=== PATIENT | female | born 1935 | race Two or more races ===

== ENCOUNTER → 2020-05-06 13:56 | Outpatient (BNVA) | payer MEDICARE, MEDICAID, SELFPAY | PROVIDERS: PCP Internal Medicine; Referring Provider Internal Medicine; Visit Provider Internal Medicine | DX: E11.65 Type 2 diabetes mellitus with hyperglycemia (principal); E78.5 Hyperlipidemia, unspecified; E05.90 Thyrotoxicosis, unspecified without thyrotoxic crisis or storm; I10 Essential (primary) hypertension; R74.01 Elevation of levels of liver transaminase levels | CPT/HCPCS: 82947; Q3014 ==

== ENCOUNTER → 2020-06-06 10:07 | Outpatient (BNVA) | payer MEDICARE, MEDICAID, SELFPAY | PROVIDERS: PCP Internal Medicine; Referring Provider Internal Medicine; Visit Provider Physician Assistant | DX: Z13.89 Encounter for screening for other disorder (principal) | CPT/HCPCS: Q3014 ==

== ENCOUNTER 2020-07-02 10:32 | Outpatient (REF) | payer MEDICARE, MEDICAID, SELFPAY ==
[2020-07-02 12:39] LABS: Alanine Aminotransferase 67 U/L (0-31); Alkaline Phosphatase 115 U/L (39-117); Anion Gap 15 (12-20); Aspartate Amino Transferase 56 U/L (5-31); Bilirubin Total 0.6 mg/dL (0.0-1.0); Blood Urea Nitrogen 13 mg/dL (9-16); Calcium 9.4 mg/dL (8.4-10.2); Carbon Dioxide 26 mmol/L (22-29); Chloride 102 mmol/L (96-108); Estimated Glomerular Filt Rate > 60; Glucose Random 318 mg/dL (60-115); Potassium 4.3 mmol/l (3.3-5.1); Sodium 139 mmol/L (135-145); Total Protein 7.7 g/dL (6.5-8.0)
[2020-07-03 09:11] LABS: HBc Num1 0.11 S/CO (0.00-0.79); HBsAGNum1 0.16 S/CO (0.00-0.99); Hepatitis B Core Antibody Nonreactive (Nonreactive); Hepatitis B Surface Antigen Negative (Negative); ~HepC Num1 0.16 S/CO (0.00-0.79); ~Hepatitis C Antibody Nonreactive (Nonreactive)
[2020-07-03 09:27] LABS: ~Hepatitis B Surface Antibody NONREACTIVE (Nonreactive)
[2020-07-03 11:09] LABS: HBS Num1 0.35 mIU/mL (0-7.99); Hepatitis A Antibody IgM 0.09 Index (0-0.79); ~Hepatitis A Antibody IgM Nonreactive (Nonreactive)
[2020-07-03 13:32] LABS: Anti Nuclear Antibody Screen NEGATIVE (NEGATIVE)
[2020-07-04 15:12] LABS: Mitochondrial Antibodies NEGATIVE (NEGATIVE)
[2020-07-06 12:36] LABS: Smooth Muscle Antibody <20 U (<20)
== END 2020-07-02 10:33 | disposition home or self-care (01) ==
LOC: HO.LAB 10:32
PROVIDERS: PCP Internal Medicine; Visit Provider Physician Assistant
DX: R74.01 Elevation of levels of liver transaminase levels (principal); R10.11 Right upper quadrant pain; R74.8 Abnormal levels of other serum enzymes
CPT/HCPCS: 36415; 80053; 86038; 86039; 86255; 86256; 86704; 86706; 86709; 86803; 87340

== ENCOUNTER → 2020-08-28 14:09 | Outpatient (BNVA) | payer MEDICARE, MEDICAID, SELFPAY | PROVIDERS: PCP Internal Medicine; Visit Provider Internal Medicine | DX: E11.65 Type 2 diabetes mellitus with hyperglycemia (principal); Z79.4 Long term (current) use of insulin; E78.5 Hyperlipidemia, unspecified; E05.90 Thyrotoxicosis, unspecified without thyrotoxic crisis or storm; I10 Essential (primary) hypertension | CPT/HCPCS: 82947; 99212 ==

== ENCOUNTER 2020-11-27 14:00 | Outpatient (REF) | payer MEDICARE, OTHER, SELFPAY ==
[2020-11-27 15:19] LABS: Estimated Average Glucose 246 mg/dL; Hemoglobin A1c % 10.2 %
[2020-11-27 15:43] LABS: Alkaline Phosphatase 111 U/L (39-117); Aspartate Amino Transferase 26 U/L (5-31); Blood Urea Nitrogen 16 mg/dL (9-16); Cholesterol 118 mg/dL; Estimated Glomerular Filt Rate > 60; HDL Cholesterol 39 mg/dL
[2020-11-27 16:03] LABS: Free T4 (Free Thyroxine) 0.93 ng/dL (0.71-1.85); Thyroid Stimulating Hormone 0.36 uIU/mL (0.32-4.0)
[2020-11-27 16:13] LABS: Albumin Level 3.7 g/dL (3.5-5.0); Anion Gap 15 (12-20); Bilirubin Total 0.7 mg/dL (0.0-1.0); Calcium 9.3 mg/dL (8.4-10.2); Carbon Dioxide 24 mmol/L (22-29); Chloride 105 mmol/L (96-108); Glucose Random 326 mg/dL (60-115); LDL Cholesterol Calculated 51 mg/dl; Potassium 4.7 mmol/L (3.3-5.1); Sodium 139 mmol/L (135-145); Total Protein 7.3 g/dL (6.5-8.0); Triglycerides 143 mg/dL
[2020-11-27 16:27] LABS: Alanine Aminotransferase 27 U/L (0-31)
[2020-11-28 07:52] LABS: LDL Cholesterol Direct 50 mg/dL (<100)
== END 2020-11-27 14:01 | disposition home or self-care (01) ==
LOC: HO.LAB 14:00
PROVIDERS: PCP Internal Medicine; Visit Provider Internal Medicine
DX: E11.65 Type 2 diabetes mellitus with hyperglycemia (principal); E78.5 Hyperlipidemia, unspecified; E05.90 Thyrotoxicosis, unspecified without thyrotoxic crisis or storm; I10 Essential (primary) hypertension; Z79.4 Long term (current) use of insulin
CPT/HCPCS: 36415; 80053; 80061; 82947; 83036; 83721; 84439; 84443; 99212

== ENCOUNTER → 2021-03-06 13:00 | Outpatient (BNVA) | payer MEDICARE, MEDICAID, SELFPAY | PROVIDERS: PCP Internal Medicine; Visit Provider Nurse Practitioner Gerontology | DX: E11.65 Type 2 diabetes mellitus with hyperglycemia (principal); E78.5 Hyperlipidemia, unspecified; I10 Essential (primary) hypertension; Z79.4 Long term (current) use of insulin | CPT/HCPCS: 82947; 83036; 99212 ==

== ENCOUNTER → 2021-03-21 12:33 | Outpatient (BNVA) | payer MEDICARE, MEDICAID, SELFPAY | PROVIDERS: PCP Internal Medicine; Visit Provider Nurse Practitioner Gerontology | DX: Z13.89 Encounter for screening for other disorder (principal) | CPT/HCPCS: Q3014 ==

== ENCOUNTER 2021-05-08 13:08 | Inpatient (IN) | payer MEDICARE, OTHER, SELFPAY ==
--- NOTE | ~2021-05-08 | XR_ITS ---
EXAMINATION: XR CHEST CLINICAL INFORMATION: Leukocytosis. Question infection COMPARISON: Chest 05/08/2021 TECHNIQUE: Frontal view of the chest was obtained. FINDINGS: The lungs are hypo-expanded with increased pulmonary vascularity likely mild congestion or pneumonitis. There is no consolidation. Heart size and pulmonary vascularity is normal. No gross bony abnormality. XR/XR chest 1V IMPRESSION: Bilateral increased parahilar vascular markings question mild congestion. No consolidation seen.
--- NOTE | ~2021-05-08 | CT_ITS ---
EXAMINATION: CT BRAIN AND CT CERVICAL SPINE WITHOUT CONTRAST. CHEST, LEFT KNEE AND LEFT HIP. CLINICAL INFORMATION: Fall with head injury. COMPARISON: None TECHNIQUE: 5 minutes thin axial and 3 reformatted 2 mm thin sagittal and coronal images of brain were obtained. Subsequently axial 3 mm thin and reformatted 2 mm thin sagittal coronal images of cervical spine were obtained. DLP [id number]. Chest one view. Left knee 3 views. AP pelvis and left hip 3 views. FINDINGS: BRAIN: There is no acute intra-axial, extra-axial bleed, masses or midline shift. There is no acute infarction evolution. The lateral ventricles are symmetrical in size and configuration without enlargement. The jay to white matter differentiation is maintained normal. There is dystrophic calcification of bilateral basal ganglia and atherosclerotic calcification of carotid arteries. Bone windows reveal no calvarial abnormality. There is no scalp soft tissue abnormality. Bilateral paranasal sinuses and mastoid air cells are well-aerated. CERVICAL SPINE: There is exaggerated cervical lordosis. The vertebral heights and alignment is normal. There is loss of C6-C7 disc height with moderate ventral and posterior spondylosis. The craniovertebral junction and the C1-C2 alignment is normal. There is mild right C3-C4 and C4-C5 facet joint arthropathy. The prevertebral and paravertebral soft tissues are normal. The lung apices are clear. CHEST: The lungs are well-expanded and clear of acute process. The heart size and pulmonary vascularity is normal. There is a calcified 3 mm granuloma right midlung. There is mild S-shaped scoliosis of thoracolumbar spine with dextroscoliosis. LEFT KNEE: There is diffuse osteopenia without any acute fracture or dislocation seen. There is no abnormal joint effusion. AP PELVIS AND LEFT HIP: There is fracture left femoral neck with mild medial angulation. There is no dislocation. Rest of the pelvis and right hip joint is normal. CT/CT cervical spine wo con IMPRESSION: No acute intracranial process seen. There is no acute fracture or dislocation cervical spine. There are degenerative disc changes and ventral and posterior spondylosis C6-C7 disc level. Left femoral neck fracture with medial angulation but no dislocation. The right hip joint is unremarkable. Diffuse osteopenia left knee without fracture or dislocation. Unremarkable chest exam except for smooth S-shaped scoliosis.
[2021-05-08 13:26] VITALS: BP 189/103; BP 190/120; PULSE 90; PULSE 91; RESP 17; TEMP 36.6; O2SAT 95; O2SAT 99; BMI 29.2
--- NOTE | 2021-05-08 13:42 | ED.FALL ---
HPI - Fall General Chief Complaint: Fall Stated Complaint: FALL,L EYE/HIP/KNEE PAIN Time Seen by Provider: 05/08/21 13:38 Source: patient, family, EMS and screen vent binder Mode of arrival: EMS Limitations: no limitations History of Present Illness HPI Narrative: 85-year-old female with history of mild dementia came in for evaluation of mechanical fall. Daughter in law was in the room with the patient and left the room for short time, patient tried to get out of the bed to the commode without using her cane that she usually use, patient was found on the floor, fully conscious complaining of left-sided knee pain, patient also had her head having small laceration in left eyebrow area. Unknown LOC but not likely because daughter in law responded immediately and patient was awake. Related Data Home Medications Medication Instructions Recorded Confirmed aspirin 81 mg tablet,delayed 81 mg PO DAILY 06/14/20 05/08/21 release (Adult Aspirin Regimen) metoprolol succinate 50 mg 50 mg PO DAILY 06/14/20 05/08/21 tablet,extended release 24 hr blood sugar diagnostic (FreeStyle 03/06/21 03/21/21 Lite Strips) blood-glucose meter (FreeStyle 03/06/21 03/21/21 Lite Meter) Previous Rx's Medication Instructions Recorded miscellaneous medical supply #1 ea 03/22/20 dulaglutide 1.5 mg/0.5 mL 1.5 mg (0.5 mL) SUBCUT QWEEK 30 05/06/20 subcutaneous pen injector Days #2 ml (Trulicity) amitriptyline 25 mg tablet 25 mg PO DAILY #90 tab 10/07/20 gabapentin 800 mg tablet 800 mg PO BID 90 Days #180 tab 10/07/20 atorvastatin 80 mg tablet 80 mg PO DAILY #90 tab 12/05/20 omeprazole 20 mg capsule,delayed 20 mg PO DAILY #90 cap 02/04/21 release insulin glargine 100 unit/mL (3 14 unit (0.14 mL) SUBCUT DAILY 30 03/21/21 mL) subcutaneous pen Days #15 ml cholecalciferol (vitamin D3) 50 50 mcg PO DAILY #30 cap 03/25/21 mcg (2,000 unit) capsule (Vitamin D3) Allergies Allergy/AdvReac Type Severity Reaction Status Date / Time No Known Allergies Allergy Verified 12/02/21 13:26 [No Known Allergies*] Review of Systems Review of Systems: All other systems are reviewed and are negative Constitutional: Reports as per HPI and Reports no additional constitutional complaints Eyes: Reports as per HPI and Reports no additional eye complaints Reports system reviewed and no additional complaints, except as documented Cardiovascular: Reports as per HPI and Reports no additional cardiovascular complaints Respiratory: Reports as per HPI and Reports no additional respiratory complaints Gastrointestinal: Reports as per HPI and Reports no additional gastrointestinal complaints Genitourinary: Reports no additional female genitourinary complaints Musculoskeletal: Reports no additional musculoskeletal complaints Skin/Breast: Reports system reviewed and no additional complaints, except as docu Psychiatric: Reports no additional psychiatric complaints Endocrine: Reports no additional endocrine complaints Hematologic/Lymphatic: Reports no additional hematologic/lymphatic complaints Allergic/Immunologic: Reports no additional allergic/immunologic complaints Reports system reviewed and no additional complaints, except as documented and Reports Abnormal speech present [facility] Past Medical History Medical History Dementia Gait instability GERD (gastroesophageal reflux disease) History of paroxysmal supraventricular tachycardia HTN (hypertension) Hypercholesterolemia Migraine Peripheral vascular disease Subclinical hyperthyroidism Transaminitis Type 2 diabetes mellitus with hyperglycemia Vitamin D deficiency Surgical History History of cholecystectomy Hx of colonoscopy Family History Family History Father No problems noted. Mother No problems noted. Social History Social History Household Members Other:: lives with adult children Housing: Apartment Alcohol intake: never Patient Tobacco Use Status: Never used Tobacco e-Cigarette/Vaping Use: Never Used Second Hand Smoke Exposure: No Use of substances other than those prescribed or required for medical reasons: No Advance Directives: No Advance Directives Information Provided: No Current occupational status: disabled Physical Exam Vital Signs: Vital Signs: Last Vital Signs Temp 97.9 F 05/08/21 13:26 Pulse 91 05/08/21 13:26 Resp 17 05/08/21 13:26 BP 189/103 H 05/08/21 13:26 Pulse Ox 95 05/08/21 13:26 BMI result Body Mass Index 29.2 Vital signs have been reviewed as appeared to be correct. Blood pressure elevated. Heart rate normal. Respiration rate normal. Temperature normal. Oxygen saturation normal. Appearance: Alert. Oriented X3. No acute distress. Head: Normal external exam. Normocephalic. Atraumatic. No Skelton signs noted. No raccoon eyes noted Eyes: PERRLA. EOMI. Conjunctiva and sclera normal. Eyelids normal. 1 cm laceration over the left eyebrow. ENT: TM's Normal. Pharynx normal. Uvula midline. Moist mucous membranes. No trismus noted. No drooling noted. No muffled voice noted. Neck: Normal inspection. Neck supple. FROM. No adenopathy. Thyroid Normal. No meningeal signs. No neck mass noted. CVS: Normal heart rate and rhythm. Heart sound normal. No murmurs noted. Pulses normal throughout. Respiratory: No respiratory distress. Painless inspiration. Breath sounds normal. No wheezes/rales/rhonchi noted. Chest nontender. No accessory muscle usage noted or decreased air movement noted. Abdomen: Soft and nontender. Bowel sounds normal in all 4 quadrants. No distention noted. No organomegaly noted. No visible injury noted. Back: No CVA tenderness. Full range of motion noted. Skin: Skin warm and dry. Normal skin color. Normal skin turgor. No rashes/lesions/lacerations noted. Extremities: Left knee pain and tenderness, no step-off, deformity. Left hip deformity, with tenderness with shortness of the left lower extremities. Neuro: Oriented X 3. Cranial nerve exam: II-XII are grossly intact No motor deficit. No sensory deficit. Reflexes normal. Course Course Course Narrative: Assessment and plan. 85-year-old female brought in by her family after had a mechanical fall and sustained left femoral neck fracture, case discussed with Dr. Arroyo and patient be admitted to Medicine. Procedures Laceration Laceration 1: Site: scalp (Left eyebrow) Side (If applicable): left Size (cm): 1 Description: linear Pre-repair: irrigated extensively Skin layer closed with: other (Dermabond) MDM - Fall Medical Records Attestation: I reviewed the patient's medical records. Lab Data Attestation: I reviewed the patient's lab results. Result diagrams: 05/08/21 15:11 05/08/21 15:11 Labs: Lab Results 1205/08/21 05/08/21 Range/Units 13:58 15:11 15:11 WBC 14.5 H (4.8-10.8) X10*3/uL RBC 4.28 (4.20-5.50) X10*6/uL Hgb 13.4 (12.0-16.0) g/dl Hct 40.6 (37.0-47.0) % MCV 94.9 (80.0-98.0) fL MCH 31.3 (27.0-33.0) pg MCHC 33.0 (31.0-35.0) g/dl RDW 13.3 (11.0-16.0) % Plt Count 170 (160-400) X10*3/uL MPV 11.3 (9.4-12.3) fL Immature Gran % (Auto) 0.3 (0.0-0.4) % Neut % (Auto) 73.5 H (45-73) % Lymph % (Auto) 22.0 (20-40) % [place] % (Auto) 3.4 (2-11) % Eos % (Auto) 0.6 (0-4) % Baso % (Auto) 0.2 (0-2) % Lymph # (Auto) 3.2 (1.2-4.9) X10*3/uL [place] # (Auto) 0.5 (0.1-1.2) X10*3/uL Eos # (Auto) 0.1 (0.0-0.4) X10*3/uL Baso # (Auto) 0.0 (0.0-0.2) X10*3/uL Abs Immat Gran (auto) 0.05 H (0.00-0.03) X10*3/uL Absolute Neuts (auto) 10.7 H (2.0-8.3) x10*3/uL Absolute Nucleated RBC 0.000 (0.0-0.012) X10*3/uL Nucleated RBC % (auto) 0.0 (0.0-0.2) /100WBC Sodium 141 (135-145) mmol/L Potassium 3.8 (3.3-5.1) mmol/L Chloride 104 (96-108) mmol/L Carbon Dioxide 26 (22-29) mmol/L Anion Gap 15 (12-20) BUN 11 (9-16) mg/dL Creatinine 0.73 (0.5-1.4) mg/dL Estim Creat Clear Calc 53.5 Estimated GFR > 60 POC Glucose 211 H (60-115) mg/dL Random Glucose 297 H (60-115) mg/dL Calcium 9.2 (8.4-10.2) mg/dL Total Bilirubin 0.7 (0.0-1.0) mg/dL Direct Bilirubin 0.3 (0.0-0.5) mg/dL AST 33 H (5-31) U/L ALT 48 H (0-31) U/L Alkaline Phosphatase 114 (39-117) U/L Troponin I High Sens (<3.5-17.0) ng/L Total Protein 7.5 (6.5-8.0) g/dL Albumin 3.9 (3.5-5.0) g/dL Lipase 10 (8-78) U/L Urine Color Urine Appearance Urine pH (5.0-8.0) Ur Specific [place] (1.005-1.025) Urine Protein (NEG-TRACE) MG/DL Urine Glucose (UA) (NEG) MG/DL Urine Ketones (NEG) MG/DL Urine Blood (NEG) Urine Nitrite (NEG) Ur Leukocyte Esterase (NEG) Urine RBC (0) /HPF Urine WBC (0-4) /HPF Ur Squamous Epith Cells /LPF Urine Bacteria /LPF 05/08/21 05/08/21 Range/Units 15:11 15:58 WBC (4.8-10.8) X10*3/uL RBC (4.20-5.50) X10*6/uL Hgb (12.0-16.0) g/dl Hct (37.0-47.0) % MCV (80.0-98.0) fL MCH (27.0-33.0) pg MCHC (31.0-35.0) g/dl RDW (11.0-16.0) % Plt Count (160-400) X10*3/uL MPV (9.4-12.3) fL Immature Gran % (Auto) (0.0-0.4) % Neut % (Auto) (45-73) % Lymph % (Auto) (20-40) % [place] % (Auto) (2-11) % Eos % (Auto) (0-4) % Baso % (Auto) (0-2) % Lymph # (Auto) (1.2-4.9) X10*3/uL [place] # (Auto) (0.1-1.2) X10*3/uL Eos # (Auto) (0.0-0.4) X10*3/uL Baso # (Auto) (0.0-0.2) X10*3/uL Abs Immat Gran (auto) (0.00-0.03) X10*3/uL Absolute Neuts (auto) (2.0-8.3) x10*3/uL Absolute Nucleated RBC (0.0-0.012) X10*3/uL Nucleated RBC % (auto) (0.0-0.2) /100WBC Sodium (135-145) mmol/L Potassium (3.3-5.1) mmol/L Chloride (96-108) mmol/L Carbon Dioxide (22-29) mmol/L Anion Gap (12-20) BUN (9-16) mg/dL Creatinine (0.5-1.4) mg/dL Estim Creat Clear Calc Estimated GFR POC Glucose (60-115) mg/dL Random Glucose (60-115) mg/dL Calcium (8.4-10.2) mg/dL Total Bilirubin (0.0-1.0) mg/dL Direct Bilirubin (0.0-0.5) mg/dL AST (5-31) U/L ALT (0-31) U/L Alkaline Phosphatase (39-117) U/L Troponin I High Sens < 3.5 (<3.5-17.0) ng/L Total Protein (6.5-8.0) g/dL Albumin (3.5-5.0) g/dL Lipase (8-78) U/L Urine Color YELLOW Urine Appearance CLEAR Urine pH 7.0 (5.0-8.0) Ur Specific [place] 1.020 (1.005-1.025) Urine Protein NEG (NEG-TRACE) MG/DL Urine Glucose (UA) >=1000 H (NEG) MG/DL Urine Ketones 15 (NEG) MG/DL Urine Blood TRACE (NEG) Urine Nitrite NEG (NEG) Ur Leukocyte Esterase NEG (NEG) Urine RBC 1-4 (0) /HPF Urine WBC 0 (0-4) /HPF Ur Squamous Epith Cells 1+ /LPF Urine Bacteria 1+ /LPF Imaging Data Chest x-ray: Attestation: I personally reviewed and interpreted this imaging study as follows: Radiologist's impression: Unremarkable chest x-ray examination. Left hip x-ray: Radiologist's impression: Left femoral neck fracture. Head/cervical spine CT: Radiologist's impression: No acute intracranial process seen. ? There is no acute fracture or dislocation cervical spine. There are degenerative disc changes and ventral and posterior spondylosis C6-C7 disc level. Left knee x-ray: Radiologist's impression: Diffuse osteopenia left knee without fracture dislocation. ECG Data Attestation: I personally reviewed and interpreted this ECG as follows: Interpretation: Sinus tachycardia at 112 beats per minutes, normal intervals, no ST-T changes. Discharge Plan Discharge Clinical Impression: Fall, Closed fracture of left hip Patient Disposition: Admitted As Inpatient
[2021-05-08 14:03] LABS: Glucose, Whole Blood 211 mg/dL (60-115)
[2021-05-08] MEDS: 0.9 % Sodium Chloride 1,000 ML 999 ML IVCONT (14:07)
[2021-05-08 14:10] VITALS: BP 167/84; PULSE 93
[2021-05-08] MEDS: oxyCODONE HCl Immed Release 5 MG TABLET PO (15:03)
[2021-05-08 15:15] LABS: MANUAL DIFF FLAG NO
[2021-05-08 15:17] LABS: Basophils Percent Auto 0.2 % (0-2); Eosinophils Absolute Auto 0.1 X10*3/uL (0.0-0.4); Eosinophils Percent Auto 0.6 % (0-4); Hematocrit 40.6 % (37.0-47.0); Hemoglobin 13.4 g/dl (12.0-16.0); Imm Gran Abs Auto 0.05 X10*3/uL (0.00-0.03); Imm Gran Pct Auto 0.3 % (0.0-0.4); Lymphocytes Absolute Auto 3.2 X10*3/uL (1.2-4.9); Mean Corpuscular Hemoglobin 31.3 pg (27.0-33.0); Mean Corpuscular Volume 94.9 fL (80.0-98.0); Mean Platelet Volume 11.3 fL (9.4-12.3); Monocytes Absolute Auto 0.5 X10*3/uL (0.1-1.2); Monocytes Percent Auto 3.4 % (2-11); Neutrophils Absolute Auto 10.7 x10*3/uL (2.0-8.3); Neutrophils Percent Auto 73.5 % (45-73); Platelet Count 170 X10*3/uL (160-400); Red Blood Count 4.28 X10*6/uL (4.20-5.50); Red Cell Distribution Width 13.3 % (11.0-16.0); White Blood Count 14.5 X10*3/uL (4.8-10.8)
[2021-05-08 15:32] LABS: Alanine Aminotransferase 48 U/L (0-31); Albumin Level 3.9 g/dL (3.5-5.0); Alkaline Phosphatase 114 U/L (39-117); Anion Gap 15 (12-20); Aspartate Amino Transferase 33 U/L (5-31); Bilirubin Direct 0.3 mg/dL (0.0-0.5); Bilirubin Total 0.7 mg/dL (0.0-1.0); Blood Urea Nitrogen 11 mg/dL (9-16); Calcium 9.2 mg/dL (8.4-10.2); Carbon Dioxide 26 mmol/L (22-29); Chloride 104 mmol/L (96-108); Creatinine Clr Calc Pharmacy 53.5; Estimated Glomerular Filt Rate > 60; Glucose Random 297 mg/dL (60-115); Lipase 10 U/L (8-78); Potassium 3.8 mmol/L (3.3-5.1); Sodium 141 mmol/L (135-145); Total Protein 7.5 g/dL (6.5-8.0)
[2021-05-08 15:38] LABS: Troponin-I High Sensitivity < 3.5 ng/L (<3.5-17.0)
--- NOTE | 2021-05-08 15:38 | PC.NURSE ---
pt returned from scanning, ivf continue to run slowely, will continue to monitor.
--- NOTE | 2021-05-08 15:48 | ECG_ITS ---
Test Reason : PRE-OP Blood Pressure : / mmHG Vent. Rate : 112 BPM Atrial Rate : 112 BPM P-R Int : 166 ms QRS Dur : 070 ms QT Int : 312 ms P-R-T Axes : 050 -38 050 degrees QTc Int : 425 ms Sinus tachycardia Left axis deviation Cannot exclude old Inferior infarct (cited on or before 27-SEP-2018) Abnormal ECG When compared with ECG of 27-SEP-2018 19:30, No significant change was found Referred By: Christie Frances Electronically Signed By:ADRIEL AGUILAR
--- NOTE | 2021-05-08 16:01 | PC.NURSE ---
burgess cath inserted per order, ekg being performed per order
--- NOTE | 2021-05-08 16:02 | PHA.MEDREC ---
Pharmacy Consult ? Medication Reconciliation Pharmacy has completed the medication reconciliation. Patient is not a good historian. Out patient pharmacy fill history is consistent.
[2021-05-08 16:06] LABS: Appearance Urine CLEAR; Color Urine YELLOW; Glucose Urine UA >=1000 MG/DL (NEG); Leukocyte Esterase Urine NEG (NEG); Nitrite Urine NEG (NEG); UACC Culture Trigger NO; Urine Blood TRACE (NEG); Urine Ketones 15 MG/DL (NEG); Urine Protein NEG (NEG-TRACE)
[2021-05-08 16:14] LABS: Bacteria Urine 1+ /LPF; Squamous Epithelial Cell Urine 1+ /LPF; WBC Urine 0 /HPF (0-4)
[2021-05-08 16:47] LABS: Influenza A PCR NEGATIVE (Negative); Influenza B PCR NEGATIVE (Negative); Resp Syncy Virus RNA Qual PCR NEGATIVE (Negative); SARS COV2 PCR INHOUSE NEGATIVE (Negative)
--- NOTE | 2021-05-08 16:47 | PM.IMHP ---
History of Present Illness Date of Service: 05/08/21 Attending physician on admission: Juan Alberto Willoughby Chief Complaint: fall, left hip pain, left knee pain This is an 85-year-old female who was brought to the emergency department after a fall. Patient has a history of dementia and history was obtained from family over the phone as well as through the use of a director electronics. The patient states that she was walking to the commode when she fell. She is unsure if she was using her cane at the time. She denies any dizziness, shortness of breath or chest pain. In the emergency room she had multiple imaging studies which revealed a left femoral neck fracture. Lab work showed leukocytosis with white count of 14.5 and was otherwise unremarkable. The orthopedic team evaluated the patient and felt she should be admitted under the medical service. Review of Systems Review of Systems: Yes all other systems are reviewed and are negative Constitutional: Constitutional: Denies chills and Denies fever(s) Cardiovascular: Cardiovascular: Denies chest pain Respiratory: Respiratory: Denies cough Gastrointestinal: Gastrointestinal: Denies abdominal pain [facility]LY [facility], [facility] Medical History Dementia Gait instability GERD (gastroesophageal reflux disease) History of paroxysmal supraventricular tachycardia HTN (hypertension) Hypercholesterolemia Migraine Peripheral vascular disease Subclinical hyperthyroidism Transaminitis Type 2 diabetes mellitus with hyperglycemia Vitamin D deficiency Functional capacity: uses cane/walker Family History Father No problems noted. Mother No problems noted. Surgical History History of cholecystectomy Hx of colonoscopy Social History Household Members Other:: lives with adult children Housing: Apartment Alcohol intake: never Patient Tobacco Use Status: Never used Tobacco e-Cigarette/Vaping Use: Never Used Second Hand Smoke Exposure: No Use of substances other than those prescribed or required for medical reasons: No Advance Directives: No Advance Directives Information Provided: No Current occupational status: disabled Meds Allergies Allergy/AdvReac Type Severity Reaction Status Date / Time No Known Allergies Allergy Verified 05/08/21 13:26 [No Known Allergies*] Active Medications: Current Medications Acetaminophen (Acetaminophen 325 Mg Tablet) 650 mg PO Q6H PRN PRN Reason: Pain, Mild (Pain Scale 1-3) Amitriptyline HCl (Amitriptyline Hcl 25 Mg Tablet) 25 mg PO DAILY [facility] Atorvastatin Calcium (Atorvastatin Calcium 80 Mg Tablet) 80 mg PO DAILY [facility] Docusate Sodium (Docusate Sodium 100 Mg Capsule) 100 mg PO DAILY PRN PRN Reason: Constipation Gabapentin (Gabapentin 400 Mg Capsule) 800 mg PO BID [facility] Cefazolin Sodium/Dextrose (Ancef) 2 gm in 50 mls @ 100 mls/hr IV PREOP ONE Stop: 05/09/21 13:29 Insulin Glargine (Insulin Glargine,Hum.Rec.Anlog 100 Unit/Ml 10 Ml Vial) 14 unit SUBCUT DAILY [facility] Metoprolol Succinate (Metoprolol Succinate Er 50 Mg Tab.Er.24h) 50 mg PO DAILY [facility]; Protocol Morphine Sulfate (Morphine Sulfate 4 Mg/Ml Cartridge) 2 mg IVPUSH Q4H PRN; Protocol PRN Reason: Pain, Severe (Pain Scale 7-10) Omeprazole (Omeprazole 20 Mg Capsule.Dr) 20 mg PO DAILY [facility] Ondansetron HCl (Ondansetron Hcl 4 Mg/2 Ml Vial) 4 mg IVPUSH Q8H PRN PRN Reason: Nausea and Vomiting Oxycodone HCl (Oxycodone Hcl Immed Release 5 Mg Tablet) 5 mg PO Q6H PRN PRN Reason: Pain, Moderate (Pain Scale 4-6 Pharmacy Consult (Consult Rx Perform Med Rec) 1 each MISCELLANE ONCE PRN PRN Reason: Consult order Sodium Chloride (0.9 % Sodium Chloride Flush 3 Ml Syringe) 3 ml IVFLUSH QSHIFT [facility] Vitamin D (Cholecalciferol (Vitamin D3) 25 Mcg Tablet) 50 mcg PO DAILY [facility] Home Medications Medication Instructions Recorded Confirmed Last Taken Type aspirin 81 mg tablet,delayed 81 mg PO DAILY 06/14/20 05/08/21 Unknown History release (Adult Aspirin Regimen) metoprolol succinate 50 mg 50 mg PO DAILY 06/14/20 05/08/21 Unknown History tablet,extended release 24 hr blood sugar diagnostic (FreeStyle 03/06/21 03/21/21 Unknown History Lite Strips) blood-glucose meter (FreeStyle 03/06/21 03/21/21 Unknown History Lite Meter) Physical Exam Vital Signs and Narrative: Vital Signs: Last Vital Signs Temp 97.9 F 05/08/21 13:26 Pulse 91 05/08/21 13:26 Resp 17 05/08/21 13:26 BP 189/103 H 05/08/21 13:26 Pulse Ox 95 05/08/21 13:26 BMI result Body Mass Index 29.2 Const: General: comfortable, alert and awake Nutritional Appearance: well nourished Orientation/consciousness: oriented to person and oriented to place HENMT: Head: Yes normocephalic and Yes atraumatic Eyes: Sclerae: sclerae normal Resp: Effort & Inspection: normal respiratory effort and no respiratory distress Cardio: Rate: regular rate Rhythm: regular rhythm GI: Palpation (GI): Soft to palpation and nontender : Other: burgess draining clear yellow urine Skin: Other: small laceration over left eye; repaired with dermabond Neuro: General: oriented to person and oriented to place Cranial nerves: Yes CN's II-XII intact bilaterally and Yes Bilaterally intact EOM present Extrem: Other: left leg externally rotated Results Labs CBC and Chem 7: 05/08/21 15:11 05/08/21 15:11 Labs: Laboratory Results - last 24 hr 05/08/21 05/08/21 05/08/21 13:58 15:11 15:11 MCV 94.9 MCH 31.3 MCHC 33.0 RDW 13.3 Plt Count 170 MPV 11.3 Immature Gran % (Auto) 0.3 Neut % (Auto) 73.5 H Lymph % (Auto) 22.0 [place] % (Auto) 3.4 Eos % (Auto) 0.6 Baso % (Auto) 0.2 Lymph # (Auto) 3.2 [place] # (Auto) 0.5 Eos # (Auto) 0.1 Baso # (Auto) 0.0 Abs Immat Gran (auto) 0.05 H Absolute Neuts (auto) 10.7 H Absolute Nucleated RBC 0.000 Nucleated RBC % (auto) 0.0 Anion Gap 15 Estim Creat Clear Calc 53.5 Estimated GFR > 60 POC Glucose 211 H Random Glucose 297 H Calcium 9.2 Total Bilirubin 0.7 Direct Bilirubin 0.3 AST 33 H ALT 48 H Alkaline Phosphatase 114 Troponin I High Sens Total Protein 7.5 Albumin 3.9 Lipase 10 Urine Color Urine Appearance Urine pH Ur Specific [place] Urine Protein Urine Glucose (UA) Urine Ketones Urine Blood Urine Nitrite Ur Leukocyte Esterase Urine RBC Urine WBC Ur Squamous Epith Cells Urine Bacteria 05/08/21 05/08/21 15:11 15:58 MCV MCH MCHC RDW Plt Count MPV Immature Gran % (Auto) Neut % (Auto) Lymph % (Auto) [place] % (Auto) Eos % (Auto) Baso % (Auto) Lymph # (Auto) [place] # (Auto) Eos # (Auto) Baso # (Auto) Abs Immat Gran (auto) Absolute Neuts (auto) Absolute Nucleated RBC Nucleated RBC % (auto) Anion Gap Estim Creat Clear Calc Estimated GFR POC Glucose Random Glucose Calcium Total Bilirubin Direct Bilirubin AST ALT Alkaline Phosphatase Troponin I High Sens < 3.5 Total Protein Albumin Lipase Urine Color YELLOW Urine Appearance CLEAR Urine pH 7.0 Ur Specific [place] 1.020 Urine Protein NEG Urine Glucose (UA) >=1000 H Urine Ketones 15 Urine Blood TRACE Urine Nitrite NEG Ur Leukocyte Esterase NEG Urine RBC 1-4 Urine WBC 0 Ur Squamous Epith Cells 1+ Urine Bacteria 1+ Imaging Radiologist's Impressions: Impressions Cervical Spine CT 05/08/21 15:04 IMPRESSION: No acute intracranial process seen. There is no acute fracture or dislocation cervical spine. There are degenerative disc changes and ventral and posterior spondylosis C6-C7 disc level. Left femoral neck fracture with medial angulation but no dislocation. The right hip joint is unremarkable. Diffuse osteopenia left knee without fracture or dislocation. Unremarkable chest exam except for smooth S-shaped scoliosis. Head CT 05/08/21 15:04 IMPRESSION: No acute intracranial process seen. There is no acute fracture or dislocation cervical spine. There are degenerative disc changes and ventral and posterior spondylosis C6-C7 disc level. Left femoral neck fracture with medial angulation but no dislocation. The right hip joint is unremarkable. Diffuse osteopenia left knee without fracture or dislocation. Unremarkable chest exam except for smooth S-shaped scoliosis. Chest X-Ray 05/08/21 15:06 IMPRESSION: No acute intracranial process seen. There is no acute fracture or dislocation cervical spine. There are degenerative disc changes and ventral and posterior spondylosis C6-C7 disc level. Left femoral neck fracture with medial angulation but no dislocation. The right hip joint is unremarkable. Diffuse osteopenia left knee without fracture or dislocation. Unremarkable chest exam except for smooth S-shaped scoliosis. Hip/Pelvis X-Ray 05/08/21 15:06 IMPRESSION: No acute intracranial process seen. There is no acute fracture or dislocation cervical spine. There are degenerative disc changes and ventral and posterior spondylosis C6-C7 disc level. Left femoral neck fracture with medial angulation but no dislocation. The right hip joint is unremarkable. Diffuse osteopenia left knee without fracture or dislocation. Unremarkable chest exam except for smooth S-shaped scoliosis. Knee X-Ray 05/08/21 15:06 IMPRESSION: No acute intracranial process seen. There is no acute fracture or dislocation cervical spine. There are degenerative disc changes and ventral and posterior spondylosis C6-C7 disc level. Left femoral neck fracture with medial angulation but no dislocation. The right hip joint is unremarkable. Diffuse osteopenia left knee without fracture or dislocation. Unremarkable chest exam except for smooth S-shaped scoliosis. 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 Status: Acute (2) Closed fracture of left hip: Status: Acute This is an 85 year old [place] speaking female with a history of DM, dementia, HTN, HLD, SVT who presented to the ED after a mechanical fall found to have left femoral neck fracture left femoral neck fracture orthopedic consult pain control cardiology eval prior to surgery elevated BP likely r/t to pain will follow closely leukocytosis reactive, r/t hip fracture no evidence of infection; UA, CXR negative DM uncontrolled, HbA1c from 03/06 9.7 trulicity NF continue Lantus SSI, POCs HLD continue statin Neuropathy continue gabapentin gerd continue prilosec h/o SVT continue metoprolol mild transaminitis chronic dvt ppx - mechanical devices code status - full code HCP - son Aristides Blackmon attending - dr. willoughby Quality Stroke Does the patient have a stroke diagnosis?: No VTE Prior VTE?: No VTE Risk Level:: Medical - moderate - high VTE Device Contraindication: N/A - Device Ordered VTE Drug Contraindication: Treatment Not Indicated
--- NOTE | 2021-05-08 16:56 | PM.EVENT ---
Event Note Date of Service: 05/10/21 Event Note: This patient is seen and examined with APC. patient seen and examined-history was taken from her family since patient is limited history han: As per patient daughter last patient was trying to use commode this morning while [id number] was in the kitchen to get juice for her, afterwards she found her on the floor, she thinks that patient did not use her cane while was transferring to the commode and fell down, patient did not lose her consciousness, had lot of hip pain- subsequently patient was brought to the emergency room for evaluation. Patient was found to have hip fracture. Lab imaging, EKG reviewed. mild leucocytosis ,bmp seems fine mild lfts elevation. stress/nuclear test in 2019: ef 70% , normal stress test. physical exam: Appearance: Alert.? Oriented X3.? not in distress.? Eyes: Pupils equal, round and reactive to light.? Sclera nonicteric.? cvs: rrr, [id number] , no murmur res: clear to auscultation ,no rhonchii or wheezing abd: no rebound or guarding ,nt, bs present. ext pulses present , no cyanosis ,left femoral area pain. neuro: axo3 , nonfocal. Physical exam and assessment and plan coordinated in APCs note, Agree with the plan in addition: 85-year-old female with history of hypertension, diabetes, hyperlipidemia, dementia with a ADL dependent, Walks with cane up to the bathroom only. Admitted for a fracture management pain management, DVT prophylaxis as per orthopedic. mild leukocytosis reactive to hip fracture. Has mild transaminitis in the past. Will get Cardio evaluation for risk stratification. Discussed with patient family patient seems full code.
[2021-05-08 17:17] VITALS: BP 136/88; PULSE 113; RESP 16; O2SAT 95
[2021-05-08] MEDS: Morphine Sulfate 4 MG/ML CARTRIDGE 2 MG IVPUSH (17:24)
--- NOTE | 2021-05-08 17:25 | PC.NURSE ---
patient alert to self, medicated for pain per order, vitals obtained, pt clinical research monitor sinus tach, will continue to monitor.
[2021-05-08 17:39] LABS: Glucose, Whole Blood 238 mg/dL (60-115)
--- NOTE | 2021-05-08 18:02 | PC.NURSE ---
patient alert to self, ate a sandwich and some milk for dinner as patient is no longer npo per order- pt surgery to be tomm. surveillance monitor sinus tach, warm blankets given, will continue to monitor.
[2021-05-08 18:27] VITALS: O2SAT 90
[2021-05-08 18:30] VITALS: O2SAT 96
--- NOTE | 2021-05-08 18:30 | PC.NURSE ---
patients o2 sat decreased to 90% on room air, 2L O2 nc applied.
--- NOTE | 2021-05-08 18:40 | PC.NURSE ---
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
[2021-05-08 19:39] VITALS: BP 146/84; PULSE 114; RESP 18; TEMP 36.6; O2SAT 98
--- NOTE | 2021-05-08 19:51 | P.CONOP_ITS ---
History of Present Illness HPI Consult date: 05/08/21 Chief complaint: FALL,L EYE/HIP/KNEE PAIN Narrative: This is an 85 yo female with baseline Dementia who sustained a fall at home. She lives with her daughter-in law and son. The fall was unwitnessed, but the daughter-in -law states the patient was going to the commode and she found her on the ground. She uses a cane at baseline, but unsure if she was using it at the time she fell. She did hit her head when she fell, denied LOC. While in the ED, xrays and evaluation was significant for femoral neck fracture. She was admitted to the medical service and orthopedics was consulted for further recommendations. Review of Systems Review of Systems: Yes all other systems are reviewed and are negative PMF Past Medical History Medical History Dementia Gait instability GERD (gastroesophageal reflux disease) History of paroxysmal supraventricular tachycardia HTN (hypertension) Hypercholesterolemia Migraine Peripheral vascular disease Subclinical hyperthyroidism Transaminitis Type 2 diabetes mellitus with hyperglycemia Vitamin D deficiency Functional capacity: uses cane/walker Family History Family History Father No problems noted. Mother No problems noted. Surgical History Surgical History History of cholecystectomy Hx of colonoscopy Social History Social History Household Members Other:: lives with adult children Housing: Apartment Alcohol intake: never Patient Tobacco Use Status: Never used Tobacco e-Cigarette/Vaping Use: Never Used Second Hand Smoke Exposure: No Use of substances other than those prescribed or required for medical reasons: No Advance Directives: No Advance Directives Information Provided: No Current occupational status: disabled Meds Allergies Allergy/AdvReac Type Severity Reaction Status Date / Time No Known Allergies Allergy Verified 05/08/21 13:26 [No Known Allergies*] Active Medications: Current Medications Acetaminophen (Acetaminophen 325 Mg Tablet) 650 mg PO Q6H PRN PRN Reason: Pain, Mild (Pain Scale 1-3) Amitriptyline HCl (Amitriptyline Hcl 25 Mg Tablet) 25 mg PO DAILY RAMAN Atorvastatin Calcium (Atorvastatin Calcium 80 Mg Tablet) 80 mg PO DAILY RAMAN Dextrose (Dextrose 50 % 25 Gm/50 Ml Vial) 25 gm IVPUSH Q15M PRN; Protocol PRN Reason: per Hypoglycemia Standing Ord. Docusate Sodium (Docusate Sodium 100 Mg Capsule) 100 mg PO DAILY PRN PRN Reason: Constipation Gabapentin (Gabapentin 400 Mg Capsule) 800 mg PO BID [facility] Glucose (Glucose Gel 15 Gm Gel..Gram.) 15 gm PO Q15M PRN; Protocol PRN Reason: per Hypoglycemia Standing Ord. Cefazolin Sodium/Dextrose (Ancef) 2 gm in 50 mls @ 100 mls/hr IV PREOP ONE Stop: 05/09/21 13:29 Insulin Glargine (Insulin Glargine,Hum.Rec.Anlog 100 Unit/Ml 10 Ml Vial) 14 unit SUBCUT DAILY [facility] Insulin Human Lispro (Insulin Lispro 100 Unit/Ml 3 Ml Vial) 0 unit SUBCUT QIDACHS [facility]; Protocol Metoprolol Succinate (Metoprolol Succinate Er 50 Mg Tab.Er.24h) 50 mg PO DAILY [facility]; Protocol Morphine Sulfate (Morphine Sulfate 4 Mg/Ml Cartridge) 2 mg IVPUSH Q4H PRN; Protocol PRN Reason: Pain, Severe (Pain Scale 7-10) Last Admin: 05/08/21 17:24 Dose: 2 mg Documented by: Omeprazole (Omeprazole 20 Mg Capsule.) 20 mg PO DAILY [facility] Ondansetron HCl (Ondansetron Hcl 4 Mg/2 Ml Vial) 4 mg IVPUSH Q8H PRN PRN Reason: Nausea and Vomiting Oxycodone HCl (Oxycodone Hcl Immed Release 5 Mg Tablet) 5 mg PO Q6H PRN PRN Reason: Pain, Moderate (Pain Scale 4-6 Pharmacy Consult (Consult Rx Perform Med Rec) 1 each MISCELLANE ONCE PRN PRN Reason: Consult order Sodium Chloride (0.9 % Sodium Chloride Flush 3 Ml Syringe) 3 ml IVFLUSH QSHIFT [facility] Vitamin D (Cholecalciferol (Vitamin D3) 25 Mcg Tablet) 50 mcg PO DAILY [facility] Home Medications Medication Instructions Recorded Confirmed Last Taken Type aspirin 81 mg tablet,delayed 81 mg PO DAILY 06/14/20 05/08/21 05/07/21 History release (Adult Aspirin Regimen) metoprolol succinate 50 mg 50 mg PO DAILY 06/14/20 05/08/21 05/07/21 History tablet,extended release 24 hr blood sugar diagnostic (FreeStyle 03/06/21 05/08/21 05/07/21 History Lite Strips) blood-glucose meter (FreeStyle 03/06/21 05/08/21 05/07/21 History Lite Meter) Physical Exam Vital Signs: Vital Signs: Last Vital Signs Temp 97.8 F 05/08/21 19:39 Pulse 114 H 05/08/21 19:39 Resp 18 05/08/21 19:39 BP 146/84 H 05/08/21 19:39 Pulse Ox 98 05/08/21 19:39 BMI result Body Mass Index 29.2 Const: General: healthy appearing, comfortable and no acute distress Extrem: Other: Left lower extremity shortened and externally rotated. She has pain with log roll and unable to SLR. Peripheral pulses present, sensation intact. Results Labs Result Diagrams: 05/08/21 15:11 05/08/21 15:11 Labs: Abnormal lab results 05/08/21 05/08/21 05/08/21 Range/Units 13:58 15:11 15:11 WBC 14.5 H (4.8-10.8) X10*3/uL Neut % (Auto) 73.5 H (45-73) % Abs Immat Gran (auto) 0.05 H (0.00-0.03) X10*3/uL Absolute Neuts (auto) 10.7 H (2.0-8.3) x10*3/uL POC Glucose 211 H (60-115) mg/dL Random Glucose 297 H (60-115) mg/dL AST 33 H (5-31) U/L ALT 48 H (0-31) U/L Urine Glucose (UA) (NEG) MG/DL 05/08/21 05/08/21 Range/Units 15:58 17:35 WBC (4.8-10.8) X10*3/uL Neut % (Auto) (45-73) % Abs Immat Gran (auto) (0.00-0.03) X10*3/uL Absolute Neuts (auto) (2.0-8.3) x10*3/uL POC Glucose 238 H (60-115) mg/dL Random Glucose (60-115) mg/dL AST (5-31) U/L ALT (0-31) U/L Urine Glucose (UA) >=1000 H (NEG) MG/DL H & H 05/08/21 Range/Units 15:11 Hgb 13.4 (12.0-16.0) g/dl Hct 40.6 (37.0-47.0) % All other labs normal. Diagnostic results Hip x-ray: image reviewed (Left femoral neck fracture with medial angulation but no dislocation. The right hip joint is unremarkable.) Assessment and Plan (1) Fracture of femoral neck, left: Status: Acute I discussed the case with Dr Arroyo and explained the extent of the inj ury to the patient's son, Aristides and daughter in law. I discussed the options available which include surgical intervention. I explained the procedure in detail along with the length of recovery and rehab course. I explained the risk, benefits and alternatives. Risk including, but not limited to infection, blood clots, bleeding, non union or malunion and nerve/tissue damage to surrounding areas. I answered all their questions and with their understanding they have consented to move forward with Operative Fixation of the left hip . The patient will be T&S, med clearance and cardiology clearance obtained and NPO after midnight. Aristides-son/HCP [phone] Procedures Date of Service Date of Service: 05/08/21
[2021-05-08 21:03] LABS: Glucose, Whole Blood 240 mg/dL (60-115)
[2021-05-08] MEDS: Insulin Lispro 100 UNIT/ML 3 ML VIAL SUBCUT (21:06)
[2021-05-08] MEDS: Gabapentin 400 MG CAPSULE 800 MG PO (21:08)
[2021-05-09] VITALS (16 sets, daily range): BP systolic 95–170; BP diastolic 50–84; PULSE 98–129; RESP 14–22; TEMP 36–37.3; O2SAT 95–100; BMI 29.2
[2021-05-09 07:02] LABS: MANUAL DIFF FLAG NO
[2021-05-09 07:16] LABS: Basophils Percent Auto 0.2 % (0-2); Eosinophils Percent Auto 0.1 % (0-4); Hematocrit 39.4 % (37.0-47.0); Hemoglobin 13.2 g/dl (12.0-16.0); Imm Gran Abs Auto 0.04 X10*3/uL (0.00-0.03); Imm Gran Pct Auto 0.3 % (0.0-0.4); Lymphocytes Absolute Auto 3.1 X10*3/uL (1.2-4.9); Lymphocytes Percent Auto 23.9 % (20-40); Mean Corpuscular HGB Conc 33.5 g/dl (31.0-35.0); Mean Corpuscular Hemoglobin 31.4 pg (27.0-33.0); Mean Corpuscular Volume 93.8 fL (80.0-98.0); Mean Platelet Volume 11.8 fL (9.4-12.3); Monocytes Percent Auto 7.7 % (2-11); Neutrophils Absolute Auto 8.7 x10*3/uL (2.0-8.3); Neutrophils Percent Auto 67.8 % (45-73); Platelet Count 154 X10*3/uL (160-400); Red Cell Distribution Width 13.3 % (11.0-16.0); White Blood Count 12.8 X10*3/uL (4.8-10.8)
[2021-05-09 07:30] LABS: Glucose, Whole Blood 267 mg/dL (60-115)
[2021-05-09 07:37] LABS: Anion Gap 15 (12-20); Blood Urea Nitrogen 11 mg/dL (9-16); Calcium 9.5 mg/dL (8.4-10.2); Carbon Dioxide 21 mmol/L (22-29); Chloride 106 mmol/L (96-108); Estimated Glomerular Filt Rate > 60; Glucose Random 287 mg/dL (60-115); Potassium 4.4 mmol/L (3.3-5.1); Sodium 138 mmol/L (135-145)
[2021-05-09] MEDS: Lactated Ringers 1,000 ML 80 ML IVCONT ×2 (09:32→21:00)
[2021-05-09] MEDS: Insulin Glargine,Hum.rec.anlog 100 UNIT/ML 10 ML VIAL 7 UNIT SUBCUT (09:34)
[2021-05-09] MEDS: ondansetron HCL 4 MG/2 ML VIAL IVPUSH (09:34)
[2021-05-09] MEDS: Morphine Sulfate 4 MG/ML CARTRIDGE 2 MG IVPUSH ×2 (09:36→20:58)
--- NOTE | 2021-05-09 09:37 | PC.NURSE ---
7am report RN stated that patient had been interfearing with medical equiptment. IV was a difficult stick for this RN and obtained around 8:30 am by Fay. GUSTAFSON. Family, hospitalist, anesthesiologist all have been at bedside. Pt c/o left leg pain but unable to give scale. medicated for pain at this time. ST on monitor with infrequent PVCs.
--- NOTE | 2021-05-09 09:58 | PM.CNCAR ---
History of Present Illness History of Present Illness Date of Service: 05/09/21 Chief complaint: Left femoral neck fracture Narrative: This is a cardiology consultation regarding preoperative risk stratification for hip surgery. Patient of Dr. Corrales but has not seen him in almost 2 years now. She has a history of supraventricular tachycardia. I communicated with the patient using a american sign language interpreter. When I questioned her regarding chest pain or shortness of breath or any cardiac symptoms, she states no. However, she does have some dementia and hence not clear as to how reliable this is. Otherwise, when I questioned her about the reason why she is in the hospital she is able to clearly states that because of fall. Again asked about passing out or is a mechanical fall and she denies any history of syncopal type symptoms preceding the fall. Review of Systems Review of Systems: Yes all other systems are reviewed and are negative Cardiovascular: Cardiovascular: Reports as per HPI, Reports no additional cardiovascular complaints, Denies acrocyanosis, Denies cool extremities, Denies painful fingertips, Denies chest pain, Denies chest pain at rest, Denies diaphoresis, Denies syncope, Denies irregular heart rhythm, Denies claudication, Denies leg edema, Denies lightheadedness, Denies palpitations and Denies dyspnea Respiratory: Respiratory: Denies dyspnea Neurologic: Denies syncope Endocrine: Endocrine: Denies palpitations [facility] Past Medical History Medical History (Updated 05/09/21 @ 10:03 by Henri Hernandez MD) Dementia Gait instability GERD (gastroesophageal reflux disease) History of paroxysmal supraventricular tachycardia HTN (hypertension) Hypercholesterolemia Migraine Peripheral vascular disease Subclinical hyperthyroidism SVT (supraventricular tachycardia) Transaminitis Type 2 diabetes mellitus with hyperglycemia Vitamin D deficiency Functional capacity: uses cane/walker Family History Family History Father No problems noted. Mother No problems noted. Surgical History Surgical History History of cholecystectomy Hx of colonoscopy Social History Social History Household Members Other:: lives with adult children Housing: Apartment Alcohol intake: never Patient Tobacco Use Status: Never used Tobacco e-Cigarette/Vaping Use: Never Used Second Hand Smoke Exposure: No Use of substances other than those prescribed or required for medical reasons: No Advance Directives: No Advance Directives Information Provided: No Current occupational status: disabled Meds Allergies Allergy/AdvReac Type Severity Reaction Status Date / Time No Known Allergies Allergy Verified 05/08/21 13:26 [No Known Allergies*] Active Medications: Current Medications Acetaminophen (Acetaminophen 325 Mg Tablet) 650 mg PO Q6H PRN PRN Reason: Pain, Mild (Pain Scale 1-3) Amitriptyline HCl (Amitriptyline Hcl 25 Mg Tablet) 25 mg PO DAILY [facility] Last Admin: 05/09/21 09:33 Dose: Not Given Documented by: Atorvastatin Calcium (Atorvastatin Calcium 80 Mg Tablet) 80 mg PO DAILY [facility] Last Admin: 05/09/21 09:33 Dose: Not Given Documented by: Dextrose (Dextrose 50 % 25 Gm/50 Ml Vial) 25 gm IVPUSH Q15M PRN; Protocol PRN Reason: per Hypoglycemia Standing Ord. Docusate Sodium (Docusate Sodium 100 Mg Capsule) 100 mg PO DAILY PRN PRN Reason: Constipation Gabapentin (Gabapentin 400 Mg Capsule) 800 mg PO BID [facility] Last Admin: 05/09/21 09:33 Dose: Not Given Documented by: Glucose (Glucose Gel 15 Gm Gel..Gram.) 15 gm PO Q15M PRN; Protocol PRN Reason: per Hypoglycemia Standing Ord. Cefazolin Sodium/Dextrose (Ancef) 2 gm in 50 mls @ 100 mls/hr IV PREOP ONE Stop: 05/09/21 13:29 Lactated Ringer's (Lr) 1,000 mls @ 80 mls/hr IVCONT .[id number] [facility] Last Admin: 05/09/21 09:32 Dose: 80 mls/hr Documented by: Insulin Glargine (Insulin Glargine,Hum.Rec.Anlog 100 Unit/Ml 10 Ml Vial) 14 unit SUBCUT DAILY [facility] Insulin Human Lispro (Insulin Lispro 100 Unit/Ml 3 Ml Vial) 0 unit SUBCUT QIDACHS [facility]; Protocol Last Admin: 05/09/21 09:32 Dose: Not Given Documented by: Metoprolol Succinate (Metoprolol Succinate Er 50 Mg Tab.Er.24h) 50 mg PO DAILY [facility]; Protocol Last Admin: 05/09/21 09:33 Dose: Not Given Documented by: Morphine Sulfate (Morphine Sulfate 4 Mg/Ml Cartridge) 2 mg IVPUSH Q4H PRN; Protocol PRN Reason: Pain, Severe (Pain Scale 7-10) Last Admin: 05/09/21 09:36 Dose: 2 mg Documented by: Omeprazole (Omeprazole 20 Mg Capsule.Dr) 20 mg PO DAILY [facility] Last Admin: 05/09/21 09:33 Dose: Not Given Documented by: Ondansetron HCl (Ondansetron Hcl 4 Mg/2 Ml Vial) 4 mg IVPUSH Q8H PRN PRN Reason: Nausea and Vomiting Last Admin: 05/09/21 09:34 Dose: 4 mg Documented by: Oxycodone HCl (Oxycodone Hcl Immed Release 5 Mg Tablet) 5 mg PO Q6H PRN PRN Reason: Pain, Moderate (Pain Scale 4-6 Pharmacy Consult (Consult Rx Perform Med Rec) 1 each MISCELLANE ONCE PRN PRN Reason: Consult order Sodium Chloride (0.9 % Sodium Chloride Flush 3 Ml Syringe) [address] [facility] Last Admin: 05/09/21 09:32 Dose: Not Given Documented by: Vitamin D (Cholecalciferol (Vitamin D3) 25 Mcg Tablet) 50 mcg PO DAILY [facility] Last Admin: 05/09/21 09:33 Dose: Not Given Documented by: Home Medications Medication Instructions Recorded Confirmed Last Taken Type aspirin 81 mg tablet,delayed 81 mg PO DAILY 06/14/20 05/08/21 05/07/21 History release (Adult Aspirin Regimen) metoprolol succinate 50 mg 50 mg PO DAILY 06/14/20 05/08/21 05/07/21 History tablet,extended release 24 hr blood sugar diagnostic (FreeStyle 03/06/21 05/08/21 05/07/21 History Lite Strips) blood-glucose meter (FreeStyle 03/06/21 05/08/21 05/07/21 History Lite Meter) Physical Exam Vital Signs: Vital Signs: Last Vital Signs Temp 98.7 F 05/09/21 07:18 Pulse 99 05/09/21 09:20 Resp 22 H 05/09/21 09:20 BP 153/83 H 05/09/21 09:20 Pulse Ox 95 05/09/21 09:20 BMI result Body Mass Index 29.2 Const: General: cooperative and no acute distress HENMT: Other: Unremarkable Neck: Neck: Yes normal visual inspection Chest: Chest palpation & inspection: normal inspection of the chest Resp: Auscultation: clear to auscultation bilaterally, no crackles and no wheezes Cardio: Jugular venous distension: no JVD Palpation: normal PMI Heart sounds: S1 normal heart sound present, S2 normal heart sound present, no gallops, no murmurs and no rubs GI: Palpation (GI): Soft to palpation Back/Spine/Pelvis: Other: unremarkable Skin: General skin exam: no rashes or lesions noted Neuro: Cranial nerves: Yes Other cranial nerve findings present Extrem: General: Yes no clubbing, cyanosis or edema Psych: Mental Status: other Objective Labs and Meds Result diagrams: 05/09/21 06:53 05/09/21 06:53 Lab results: Laboratory Results - last 24 hr 05/08/21 05/08/21 05/08/21 13:58 15:10 15:11 WBC 14.5 H RBC 4.28 Hgb 13.4 Hct 40.6 MCV 94.9 MCH 31.3 MCHC 33.0 RDW 13.3 Plt Count 170 MPV 11.3 Immature Gran % (Auto) 0.3 Neut % (Auto) 73.5 H Lymph % (Auto) 22.0 [place] % (Auto) 3.4 Eos % (Auto) 0.6 Baso % (Auto) 0.2 Lymph # (Auto) 3.2 [place] # (Auto) 0.5 Eos # (Auto) 0.1 Baso # (Auto) 0.0 Abs Immat Gran (auto) 0.05 H Absolute Neuts (auto) 10.7 H Absolute Nucleated RBC 0.000 Nucleated RBC % (auto) 0.0 Sodium Potassium Chloride Carbon Dioxide Anion Gap BUN Creatinine Estim Creat Clear Calc Estimated GFR POC Glucose 211 H Random Glucose Calcium Total Bilirubin Direct Bilirubin AST ALT Alkaline Phosphatase Troponin I High Sens Total Protein Albumin Lipase Urine Color Urine Appearance Urine pH Ur Specific [place] Urine Protein Urine Glucose (UA) Urine Ketones Urine Blood Urine Nitrite Ur Leukocyte Esterase Urine RBC Urine WBC Ur Squamous Epith Cells Urine Bacteria Influenza Type A (PCR) NEGATIVE Influenza Type B (PCR) NEGATIVE RSV RNA Qual (PCR) NEGATIVE SARS-CoV-2 RNA (RT-PCR) NEGATIVE Blood Type Antibody Screen 05/08/21 05/08/21 05/08/21 15:11 15:11 15:58 WBC RBC Hgb Hct MCV MCH MCHC RDW Plt Count MPV Immature Gran % (Auto) Neut % (Auto) Lymph % (Auto) [place] % (Auto) Eos % (Auto) Baso % (Auto) Lymph # (Auto) [place] # (Auto) Eos # (Auto) Baso # (Auto) Abs Immat Gran (auto) Absolute Neuts (auto) Absolute Nucleated RBC Nucleated RBC % (auto) Sodium 141 Potassium 3.8 Chloride 104 Carbon Dioxide 26 Anion Gap 15 BUN 11 Creatinine 0.73 Estim Creat Clear Calc 53.5 Estimated GFR > 60 POC Glucose Random Glucose 297 H Calcium 9.2 Total Bilirubin 0.7 Direct Bilirubin 0.3 AST 33 H ALT 48 H Alkaline Phosphatase 114 Troponin I High Sens < 3.5 Total Protein 7.5 Albumin 3.9 Lipase 10 Urine Color YELLOW Urine Appearance CLEAR Urine pH 7.0 Ur Specific [place] 1.020 Urine Protein NEG Urine Glucose (UA) >=1000 H Urine Ketones 15 Urine Blood TRACE Urine Nitrite NEG Ur Leukocyte Esterase NEG Urine RBC 1-4 Urine WBC 0 Ur Squamous Epith Cells 1+ Urine Bacteria 1+ Influenza Type A (PCR) Influenza Type B (PCR) RSV RNA Qual (PCR) SARS-CoV-2 RNA (RT-PCR) Blood Type Antibody Screen 05/08/21 05/08/21 05/08/21 17:35 21:00 23:58 WBC RBC Hgb Hct MCV MCH MCHC RDW Plt Count MPV Immature Gran % (Auto) Neut % (Auto) Lymph % (Auto) [place] % (Auto) Eos % (Auto) Baso % (Auto) Lymph # (Auto) [place] # (Auto) Eos # (Auto) Baso # (Auto) Abs Immat Gran (auto) Absolute Neuts (auto) Absolute Nucleated RBC Nucleated RBC % (auto) Sodium Potassium Chloride Carbon Dioxide Anion Gap BUN Creatinine Estim Creat Clear Calc Estimated GFR POC Glucose 238 H 240 H Random Glucose Calcium Total Bilirubin Direct Bilirubin AST ALT Alkaline Phosphatase Troponin I High Sens Total Protein Albumin Lipase Urine Color Urine Appearance Urine pH Ur Specific [place] Urine Protein Urine Glucose (UA) Urine Ketones Urine Blood Urine Nitrite Ur Leukocyte Esterase Urine RBC Urine WBC Ur Squamous Epith Cells Urine Bacteria Influenza Type A (PCR) Influenza Type B (PCR) RSV RNA Qual (PCR) SARS-CoV-2 RNA (RT-PCR) Blood Type A Positive Antibody Screen NEGATIVE 05/09/21 05/09/21 05/09/21 06:53 06:53 07:26 WBC 12.8 H RBC 4.20 Hgb 13.2 Hct 39.4 MCV 93.8 MCH 31.4 MCHC 33.5 RDW 13.3 Plt Count 154 L MPV 11.8 Immature Gran % (Auto) 0.3 Neut % (Auto) 67.8 Lymph % (Auto) 23.9 [place] % (Auto) 7.7 Eos % (Auto) 0.1 Baso % (Auto) 0.2 Lymph # (Auto) 3.1 [place] # (Auto) 1.0 Eos # (Auto) 0.0 Baso # (Auto) 0.0 Abs Immat Gran (auto) 0.04 H Absolute Neuts (auto) 8.7 H Absolute Nucleated RBC 0.000 Nucleated RBC % (auto) 0.0 Sodium 138 Potassium 4.4 Chloride 106 Carbon Dioxide 21 L Anion Gap 15 BUN 11 Creatinine 0.75 Estim Creat Clear Calc 52.0 Estimated GFR > 60 POC Glucose 267 H Random Glucose 287 H Calcium 9.5 Total Bilirubin Direct Bilirubin AST ALT Alkaline Phosphatase Troponin I High Sens Total Protein Albumin Lipase Urine Color Urine Appearance Urine pH Ur Specific [place] Urine Protein Urine Glucose (UA) Urine Ketones Urine Blood Urine Nitrite Ur Leukocyte Esterase Urine RBC Urine WBC Ur Squamous Epith Cells Urine Bacteria Influenza Type A (PCR) Influenza Type B (PCR) RSV RNA Qual (PCR) SARS-CoV-2 RNA (RT-PCR) Blood Type Antibody Screen ECG Interpretation: EKG shows sinus tachycardia at 112/Min. Telemetry shows occasional PVCs. Imaging Radiologist's impression: Impressions Cervical Spine CT 05/08/21 15:04 IMPRESSION: No acute intracranial process seen. There is no acute fracture or dislocation cervical spine. There are degenerative disc changes and ventral and posterior spondylosis C6-C7 disc level. Left femoral neck fracture with medial angulation but no dislocation. The right hip joint is unremarkable. Diffuse osteopenia left knee without fracture or dislocation. Unremarkable chest exam except for smooth S-shaped scoliosis. Head CT 05/08/21 15:04 IMPRESSION: No acute intracranial process seen. There is no acute fracture or dislocation cervical spine. There are degenerative disc changes and ventral and posterior spondylosis C6-C7 disc level. Left femoral neck fracture with medial angulation but no dislocation. The right hip joint is unremarkable. Diffuse osteopenia left knee without fracture or dislocation. Unremarkable chest exam except for smooth S-shaped scoliosis. Chest X-Ray 05/08/21 15:06 IMPRESSION: No acute intracranial process seen. There is no acute fracture or dislocation cervical spine. There are degenerative disc changes and ventral and posterior spondylosis C6-C7 disc level. Left femoral neck fracture with medial angulation but no dislocation. The right hip joint is unremarkable. Diffuse osteopenia left knee without fracture or dislocation. Unremarkable chest exam except for smooth S-shaped scoliosis. Hip/Pelvis X-Ray 05/08/21 15:06 IMPRESSION: No acute intracranial process seen. There is no acute fracture or dislocation cervical spine. There are degenerative disc changes and ventral and posterior spondylosis C6-C7 disc level. Left femoral neck fracture with medial angulation but no dislocation. The right hip joint is unremarkable. Diffuse osteopenia left knee without fracture or dislocation. Unremarkable chest exam except for smooth S-shaped scoliosis. Knee X-Ray 05/08/21 15:06 IMPRESSION: No acute intracranial process seen. There is no acute fracture or dislocation cervical spine. There are degenerative disc changes and ventral and posterior spondylosis C6-C7 disc level. Left femoral neck fracture with medial angulation but no dislocation. The right hip joint is unremarkable. Diffuse osteopenia left knee without fracture or dislocation. Unremarkable chest exam except for smooth S-shaped scoliosis. Assessment and Plan (1) Preoperative cardiovascular examination: Status: Acute (2) Fracture of femoral neck, left: Status: Acute (3) SVT (supraventricular tachycardia): Status: Acute Echocardiogram from 2019 shows normal LVEF; moderate mitral regurgitation, mild aortic regurgitation and mild pulmonary hypertension. Myocardial perfusion imaging study from 2019 also shows normal perfusion. Overall, it seems that she has been fairly stable from cardiac. With regard to hip surgery, may proceed as planned. Intermediate cardiac risk. Procedures Date of Service Date of Service: 05/09/21
[2021-05-09 12:38] LABS: Glucose, Whole Blood 231 mg/dL (60-115)
--- NOTE | 2021-05-09 13:35 | MHC.SHP ---
Pre-Procedural Eval Section A Date of Service: 05/09/21 The patient is an INPATIENT: Yes Changes since office visit: Yes Patient answered all questions; No Cold of Flu in the past 2 weeks, No New Medical Problems and No Changes in Medication The History & Physical has been completed within 30 days and I have reviewed it.: Yes Section B Chief Complaint: Left femoral neck fracture Allergies: Allergies Allergy/AdvReac Type Severity Reaction Status Date / Time No Known Allergies Allergy Verified 05/08/21 13:26 [No Known Allergies*] Plan I have reviewed the history and physical and performed a pertinent physical examination on my patient. No changes have occurred unless specified.
--- NOTE | 2021-05-09 14:35 | PM.OP ---
Brief Operative Note Date of Service: 05/09/21 Pre-op diagnosis: left femoral neck fracture Post-op diagnosis: same Procedure: left hip hemiarthroplasty Implants: Kobi accolad 2#6 127 deg with +0 Surgeon: Grant Arroyo MD Anesthesia: GETA and local Was an Software Support Technician used for this Procedure?: Yes Software Support Technician: Dorothy Magaña Estimated blood loss (mL): 200 IV fluids (mL): 1,000 Pathology: other Condition: stable Disposition: PACU
--- NOTE | 2021-05-09 14:37 | P.OP_ITS ---
Operative Note Operative Note Date of Service: 05/09/21 Narrative: Pre-op diagnosis: left femoral neck fracture Post-op diagnosis: same Procedure: left hip hemiarthroplasty Implants: Kobi accolad 2#6 127 deg with +0 26/47 Surgeon: Grant Arroyo MD Anesthesia: GETA and local Was an Radio Division Officer used for this Procedure?: Yes Radio Division Officer: Dorothy Magaña Estimated blood loss (mL): 200 IV fluids (mL): 1,000 Pathology: other Condition: stable Disposition: PACU Procedure in detail: Patient was brought to the operative room placed in the right lateral decubitus position. All bony prominences were well padded he was prepped and draped in standard sterile fashion. IV antibiotics per weight were administered and a time-out was called to identify proper site proper procedure proper surgeon. Radiographs were available and confirmed. I began by making a curvilinear incision over the posterolateral aspect of the greater trochanter. Dissection was taken down to the tensor fascia which was incised in line with the incision and a Charnley retractor was placed. The hip was internally rotated and the external rotators were identified. All vessels in the area were cauterized and a full-thickness capsular/external rotator layer was developed in a hockey-stick fashion starting just proximal to the piriformis. This layer was tagged and the displaced femoral neck fracture was identified. Clean-up cut was performed and the head was removed and measured on the back table (47mm). I then copiously irrigated the acetabulum and removed all bony fragments. Once this was done I used a cookie cutter to lateralize and a Charnley awl to identify the canal and then sequentially broached up to a #6. I then trialed with a standard head and a bipolar component matching the femoral head size. I was satisfied with the range of motion and stability and length. Therefore I removed all instrumentation and copiously irrigated. I then placed my final femoral implant and re-trialed. I was satisfied with the +0 implant as the -3 was not sufficiently stable in adduction and internal rotation. a + 0 26/47 bipolar was implanted. I then irrigated copiously and perfromed a 3 minute iodine soak. Once this was done I closed the capsular layer with FiberWire and then performed a layered closure with angela on skin. Patient was placed in sterile dressing extubated brought to recovery room in stable condition there were no known complications.
--- NOTE | 2021-05-09 14:46 | HO.PM.IMPN ---
Subjective Subjective Date of Service: 05/09/21 Interval History: Seen And examined this morning Follow-up For left femoral neck fracture No overnight events Seen with [id number] at the bedside who assisted with translation Patient endorses ongoing left hip pain. She denies any shortness of breath, chest pain, abdominal pain. Review of Systems Review of Systems: Yes all other systems are reviewed and are negative Constitutional Constitutional: Denies chills and Denies fever(s) Cardiovascular Cardiovascular: Denies chest pain Respiratory Respiratory: Denies cough Gastrointestinal Gastrointestinal: Denies abdominal pain Physical Exam Vital Signs: Vital Signs: Last Vital Signs Temp 97.7 F 05/09/21 12:18 Pulse 98 05/09/21 12:18 Resp 20 05/09/21 12:18 BP 153/67 H 05/09/21 12:18 Pulse Ox 100 05/09/21 12:18 BMI result Body Mass Index 29.2 Const: General: comfortable, alert and awake Nutritional Appearance: well nourished Orientation/consciousness: oriented to person and oriented to place HENMT: Head: Yes normocephalic and Yes atraumatic Eyes: Sclerae: sclerae normal Resp: Effort & Inspection: normal respiratory effort and no respiratory distress Cardio: Rate: regular rate Rhythm: regular rhythm GI: Palpation (GI): Soft to palpation and nontender : Other: burgess draining clear yellow urine Skin: Other: small laceration over left eye; repaired with dermabond Neuro: General: oriented to person and oriented to place Cranial nerves: Yes CN's II-XII intact bilaterally and Yes Bilaterally intact EOM present Extrem: Other: left leg externally rotated Objective Data Active Medications Acetaminophen (Acetaminophen 325 Mg Tablet) 650 mg PO Q6H PRN PRN Reason: Pain, Mild (Pain Scale 1-3) Amitriptyline HCl (Amitriptyline Hcl 25 Mg Tablet) 25 mg PO DAILY [facility] Last Admin: 05/09/21 09:33 Dose: Not Given Documented by: RAJI Non-Admin Reason: NPO Atorvastatin Calcium (Atorvastatin Calcium 80 Mg Tablet) 80 mg PO DAILY [facility] Last Admin: 05/09/21 09:33 Dose: Not Given Documented by: RAJI Non-Admin Reason: NPO Dextrose (Dextrose 50 % 25 Gm/50 Ml Vial) 25 gm IVPUSH Q15M PRN; Protocol PRN Reason: per Hypoglycemia Standing Ord. Docusate Sodium (Docusate Sodium 100 Mg Capsule) 100 mg PO DAILY PRN PRN Reason: Constipation Gabapentin (Gabapentin 400 Mg Capsule) 800 mg PO BID [facility] Last Admin: 05/09/21 09:33 Dose: Not Given Documented by: RAJI Non-Admin Reason: NPO Glucose (Glucose Gel 15 Gm Gel..Gram.) 15 gm PO Q15M PRN; Protocol PRN Reason: per Hypoglycemia Standing Ord. Lactated Ringer's (Lr) 1,000 mls @ 80 mls/hr IVCONT .[id number] [facility] Last Admin: 05/09/21 09:32 Dose: 80 mls/hr Documented by: RAJI Lactated Ringer's (Lr) 1,000 mls @ 100 mls/hr IVCONT .Q10H [facility] Insulin Glargine (Insulin Glargine,Hum.Rec.Anlog 100 Unit/Ml 10 Ml Vial) 14 unit SUBCUT DAILY [facility] Insulin Human Lispro (Insulin Lispro 100 Unit/Ml 3 Ml Vial) 0 unit SUBCUT QIDACHS [facility]; Protocol Last Admin: 05/09/21 09:32 Dose: Not Given Documented by: RAJI Non-Admin Reason: NPO Metoprolol Succinate (Metoprolol Succinate Er 50 Mg Tab.Er.24h) 50 mg PO DAILY [facility]; Protocol Last Admin: 05/09/21 09:33 Dose: Not Given Documented by: RAJI Non-Admin Reason: NPO Morphine Sulfate (Morphine Sulfate 4 Mg/Ml Cartridge) 2 mg IVPUSH Q4H PRN; Protocol PRN Reason: Pain, Severe (Pain Scale 7-10) Last Admin: 05/09/21 09:36 Dose: 2 mg Documented by: RAJI Omeprazole (Omeprazole 20 Mg Capsule.Dr) 20 mg PO DAILY [facility] Last Admin: 05/09/21 09:33 Dose: Not Given Documented by: RAJI Non-Admin Reason: NPO Ondansetron HCl (Ondansetron Hcl 4 Mg/2 Ml Vial) 4 mg IVPUSH Q8H PRN PRN Reason: Nausea and Vomiting Last Admin: 05/09/21 09:34 Dose: 4 mg Documented by: RAJI Oxycodone HCl (Oxycodone Hcl Immed Release 5 Mg Tablet) 5 mg PO Q6H PRN PRN Reason: Pain, Moderate (Pain Scale 4-6 Pharmacy Consult (Consult Rx Perform Med Rec) 1 each MISCELLANE ONCE PRN PRN Reason: Consult order Sodium Chloride (0.9 % Sodium Chloride Flush 3 Ml Syringe) 3 ml IVFLUSH QSHIFT [facility] Last Admin: 05/09/21 09:32 Dose: Not Given Documented by: RAJI Non-Admin Reason: Med Not Available Vitamin D (Cholecalciferol (Vitamin D3) 25 Mcg Tablet) 50 mcg PO DAILY [facility] Last Admin: 05/09/21 09:33 Dose: Not Given Documented by: RAJI Non-Admin Reason: NPO Labs CBC & Chem 7: 05/09/21 06:53 05/09/21 06:53 Labs: Laboratory Results - last 24 hr 05/08/21 05/08/21 05/08/21 15:10 15:11 15:11 MCV 94.9 MCH 31.3 MCHC 33.0 RDW 13.3 Plt Count 170 MPV 11.3 Immature Gran % (Auto) 0.3 Neut % (Auto) 73.5 H Lymph % (Auto) 22.0 [place] % (Auto) 3.4 Eos % (Auto) 0.6 Baso % (Auto) 0.2 Lymph # (Auto) 3.2 [place] # (Auto) 0.5 Eos # (Auto) 0.1 Baso # (Auto) 0.0 Abs Immat Gran (auto) 0.05 H Absolute Neuts (auto) 10.7 H Absolute Nucleated RBC 0.000 Nucleated RBC % (auto) 0.0 Anion Gap 15 Estim Creat Clear Calc 53.5 Estimated GFR > 60 POC Glucose Random Glucose 297 H Calcium 9.2 Total Bilirubin 0.7 Direct Bilirubin 0.3 AST 33 H ALT 48 H Alkaline Phosphatase 114 Troponin I High Sens Total Protein 7.5 Albumin 3.9 Lipase 10 Urine Color Urine Appearance Urine pH Ur Specific [place] Urine Protein Urine Glucose (UA) Urine Ketones Urine Blood Urine Nitrite Ur Leukocyte Esterase Urine RBC Urine WBC Ur Squamous Epith Cells Urine Bacteria Influenza Type A (PCR) NEGATIVE Influenza Type B (PCR) NEGATIVE RSV RNA Qual (PCR) NEGATIVE SARS-CoV-2 RNA (RT-PCR) NEGATIVE Blood Type Antibody Screen 05/08/21 05/08/21 05/08/21 15:11 15:58 17:35 MCV MCH MCHC RDW Plt Count MPV Immature Gran % (Auto) Neut % (Auto) Lymph % (Auto) [place] % (Auto) Eos % (Auto) Baso % (Auto) Lymph # (Auto) [place] # (Auto) Eos # (Auto) Baso # (Auto) Abs Immat Gran (auto) Absolute Neuts (auto) Absolute Nucleated RBC Nucleated RBC % (auto) Anion Gap Estim Creat Clear Calc Estimated GFR POC Glucose 238 H Random Glucose Calcium Total Bilirubin Direct Bilirubin AST ALT Alkaline Phosphatase Troponin I High Sens < 3.5 Total Protein Albumin Lipase Urine Color YELLOW Urine Appearance CLEAR Urine pH 7.0 Ur Specific [place] 1.020 Urine Protein NEG Urine Glucose (UA) >=1000 H Urine Ketones 15 Urine Blood TRACE Urine Nitrite NEG Ur Leukocyte Esterase NEG Urine RBC 1-4 Urine WBC 0 Ur Squamous Epith Cells 1+ Urine Bacteria 1+ Influenza Type A (PCR) Influenza Type B (PCR) RSV RNA Qual (PCR) SARS-CoV-2 RNA (RT-PCR) Blood Type Antibody Screen 05/08/21 05/08/21 05/09/21 21:00 23:58 06:53 MCV 93.8 MCH 31.4 MCHC 33.5 RDW 13.3 Plt Count 154 L MPV 11.8 Immature Gran % (Auto) 0.3 Neut % (Auto) 67.8 Lymph % (Auto) 23.9 [place] % (Auto) 7.7 Eos % (Auto) 0.1 Baso % (Auto) 0.2 Lymph # (Auto) 3.1 [place] # (Auto) 1.0 Eos # (Auto) 0.0 Baso # (Auto) 0.0 Abs Immat Gran (auto) 0.04 H Absolute Neuts (auto) 8.7 H Absolute Nucleated RBC 0.000 Nucleated RBC % (auto) 0.0 Anion Gap Estim Creat Clear Calc Estimated GFR POC Glucose 240 H Random Glucose Calcium Total Bilirubin Direct Bilirubin AST ALT Alkaline Phosphatase Troponin I High Sens Total Protein Albumin Lipase Urine Color Urine Appearance Urine pH Ur Specific [place] Urine Protein Urine Glucose (UA) Urine Ketones Urine Blood Urine Nitrite Ur Leukocyte Esterase Urine RBC Urine WBC Ur Squamous Epith Cells Urine Bacteria Influenza Type A (PCR) Influenza Type B (PCR) RSV RNA Qual (PCR) SARS-CoV-2 RNA (RT-PCR) Blood Type A Positive Antibody Screen NEGATIVE 05/09/21 05/09/21 05/09/21 06:53 07:26 12:34 MCV MCH MCHC RDW Plt Count MPV Immature Gran % (Auto) Neut % (Auto) Lymph % (Auto) [place] % (Auto) Eos % (Auto) Baso % (Auto) Lymph # (Auto) [place] # (Auto) Eos # (Auto) Baso # (Auto) Abs Immat Gran (auto) Absolute Neuts (auto) Absolute Nucleated RBC Nucleated RBC % (auto) Anion Gap 15 Estim Creat Clear Calc 52.0 Estimated GFR > 60 POC Glucose 267 H 231 H Random Glucose 287 H Calcium 9.5 Total Bilirubin Direct Bilirubin AST ALT Alkaline Phosphatase Troponin I High Sens Total Protein Albumin Lipase Urine Color Urine Appearance Urine pH Ur Specific [place] Urine Protein Urine Glucose (UA) Urine Ketones Urine Blood Urine Nitrite Ur Leukocyte Esterase Urine RBC Urine WBC Ur Squamous Epith Cells Urine Bacteria Influenza Type A (PCR) Influenza Type B (PCR) RSV RNA Qual (PCR) SARS-CoV-2 RNA (RT-PCR) Blood Type Antibody Screen Assessment and Plan (1) Fracture of femoral neck, left: Status: Acute (2) SVT (supraventricular tachycardia): Status: Acute (3) Type 2 diabetes mellitus with hyperglycemia: Status: Acute Assessment and Plan: This is an 85 year old Venezuelan speaking female with a history of DM, dementia, HTN, HLD, SVT who presented to the ED after a mechanical fall found to have left femoral neck fracture left femoral neck fracture ortho following, plan for OR today seen by cardiology no workup prior to planned procedure. Intermediate cardiac risk pain control elevated BP likely r/t to pain will follow closely. If continues to be elevated will start Norvasc leukocytosis reactive, r/t hip fracture no evidence of infection; UA, CXR negative DM uncontrolled, HbA1c from 03/06 9.7 trulicity NF continue Lantus SSI, POCs HLD continue statin Neuropathy continue gabapentin gerd continue prilosec h/o SVT continue metoprolol mild transaminitis chronic dvt ppx - mechanical devices code status - full code HCP - son Aristides Blackmon attending - dr. bowles Quality Stroke Does the patient have a stroke diagnosis?: No VTE Prior VTE?: No VTE Risk Level:: Medical - moderate - high VTE Device Contraindication: N/A - Device Ordered VTE Drug Contraindication: Treatment Not Indicated
[2021-05-09] MEDS: 0.9 % Sodium Chloride Flush 3 ML SYRINGE IVFLUSH (18:48)
[2021-05-09 20:16] LABS: Glucose, Whole Blood 290 mg/dL (60-115)
[2021-05-09] MEDS: Gabapentin 400 MG CAPSULE 800 MG PO (20:58)
[2021-05-09] MEDS: Insulin Lispro 100 UNIT/ML 3 ML VIAL SUBCUT (20:58)
[2021-05-10] VITALS (9 sets, daily range): BP systolic 122–143; BP diastolic 60–66; PULSE 96–125; RESP 16–20; TEMP 36.1–37.7; O2SAT 87–99
[2021-05-10 06:29] LABS: MANUAL DIFF FLAG NO
[2021-05-10 06:31] LABS: Basophils Percent Auto 0.1 % (0-2); Hematocrit 30.9 % (37.0-47.0); Hemoglobin 10.1 g/dl (12.0-16.0); Imm Gran Abs Auto 0.07 X10*3/uL (0.00-0.03); Imm Gran Pct Auto 0.5 % (0.0-0.4); Lymphocytes Absolute Auto 1.5 X10*3/uL (1.2-4.9); Lymphocytes Percent Auto 11.1 % (20-40); Mean Corpuscular HGB Conc 32.7 g/dl (31.0-35.0); Mean Corpuscular Volume 94.8 fL (80.0-98.0); Mean Platelet Volume 10.8 fL (9.4-12.3); Monocytes Absolute Auto 1.1 X10*3/uL (0.1-1.2); Monocytes Percent Auto 8.3 % (2-11); Neutrophils Absolute Auto 10.7 x10*3/uL (2.0-8.3); Platelet Count 125 X10*3/uL (160-400); Red Blood Count 3.26 X10*6/uL (4.20-5.50); Red Cell Distribution Width 13.4 % (11.0-16.0); White Blood Count 13.4 X10*3/uL (4.8-10.8)
[2021-05-10 06:44] LABS: Anion Gap 14 (12-20); Blood Urea Nitrogen 13 mg/dL (9-16); Calcium 8.7 mg/dL (8.4-10.2); Carbon Dioxide 26 mmol/L (22-29); Chloride 103 mmol/L (96-108); Creatinine Clr Calc Pharmacy 51.3; Estimated Glomerular Filt Rate > 60; Glucose Random 307 mg/dL (60-115); Sodium 139 mmol/L (135-145)
[2021-05-10 07:31] LABS: Glucose, Whole Blood 271 mg/dL (60-115)
[2021-05-10] MEDS: Omeprazole 20 MG CAPSULE.DR PO (07:47)
[2021-05-10] MEDS: Atorvastatin Calcium 80 MG TABLET PO (07:47)
[2021-05-10] MEDS: Cholecalciferol (Vitamin D3) 25 MCG TABLET 50 MCG PO (07:47)
[2021-05-10] MEDS: Gabapentin 400 MG CAPSULE 800 MG PO (07:48)
[2021-05-10] MEDS: Metoprolol Succinate ER 50 MG TAB.ER.24H PO (07:48)
[2021-05-10] MEDS: Insulin Lispro 100 UNIT/ML 3 ML VIAL SUBCUT ×3 (07:48→16:50)
[2021-05-10] MEDS: Amitriptyline HCl 25 MG TABLET PO (07:48)
[2021-05-10] MEDS: Lactated Ringers 1,000 ML 80 ML IVCONT ×2 (08:02→19:46)
[2021-05-10] MEDS: Morphine Sulfate 4 MG/ML CARTRIDGE 2 MG IVPUSH (08:06)
--- NOTE | 2021-05-10 09:23 | HO.PM.IMPN ---
Subjective Subjective Date of Service: 05/10/21 <VAN Andrade - Last Filed: 05/10/21 09:31> 05/11/21 <Brendan Le MD - Last Filed: 05/11/21 08:06> Interval History: seen and examined this morning follow up for left femoral neck fracture s/p left hemiarthoplasy yesterday very sleepy this morning <VAN Andrade Last Filed: 05/10/21 09:31> Review of Systems Review of Systems: Yes Unobtainable due to mental condition <VAN Andrade Last Filed: 05/10/21 09:31> Physical Exam Vital Signs: Vital Signs: Last Vital Signs Temp 97 F 05/10/21 07:09 Pulse 111 H 05/10/21 08:33 Resp 17 05/10/21 08:48 BP 143/64 H 05/10/21 08:33 Pulse Ox 96 05/10/21 08:54 BMI result Body Mass Index 29.2 <VAN Andrade Last Filed: 05/10/21 09:31> Const: Other: sleepy, arousable to verbal stimuli but falls back to sleep quickly <VAN Andrade Last Filed: 05/10/21 09:31> General: comfortable <VAN Andrade Last Filed: 05/10/21 09:31> Nutritional Appearance: well nourished <VAN Andrade Last Filed: 05/10/21 09:31> Orientation/consciousness: oriented to person and oriented to place <VAN Andrade Last Filed: 05/10/21 09:31> HENMT: Head: Yes normocephalic and Yes atraumatic <VAN Andrade Last Filed: 05/10/21 09:31> Eyes: Sclerae: sclerae normal <VAN Andrade Last Filed: 05/10/21 09:31> Resp: Effort & Inspection: normal respiratory effort and no respiratory distress <VAN Andrade Last Filed: 05/10/21 09:31> Cardio: Rate: regular rate <VAN Andrade Last Filed: 05/10/21 09:31> Rhythm: regular rhythm <VAN Andrade Last Filed: 05/10/21 09:31> GI: Palpation (GI): Soft to palpation and nontender <VAN Andrade Last Filed: 05/10/21 09:31> : Other: burgess draining clear yellow urine <VAN Andrade Last Filed: 05/10/21 09:31> Skin: Other: small laceration over left eye; repaired with dermabond <VAN Andrade Last Filed: 05/10/21 09:31> Neuro: General: oriented to person and oriented to place <VAN nAdrade Last Filed: 05/10/21 09:31> Cranial nerves: Yes CN's II-XII intact bilaterally and Yes Bilaterally intact EOM present <VAN Andrade Last Filed: 05/10/21 09:31> Extrem: Other: left hip bandage c/d/i <VAN Andrade Last Filed: 05/10/21 09:31> Objective Data Active Medications Acetaminophen (Acetaminophen 325 Mg Tablet) 650 mg PO Q6H PRN PRN Reason: Pain, Mild (Pain Scale 1-3) Amitriptyline HCl (Amitriptyline Hcl 25 Mg Tablet) 25 mg PO DAILY [facility] Last Admin: 05/10/21 07:48 Dose: 25 mg Documented by: ALETHEA Atorvastatin Calcium (Atorvastatin Calcium 80 Mg Tablet) 80 mg PO DAILY [facility] Last Admin: 05/10/21 07:47 Dose: 80 mg Documented by: ALETHEA Dextrose (Dextrose 50 % 25 Gm/50 Ml Vial) 25 gm IVPUSH Q15M PRN; Protocol PRN Reason: per Hypoglycemia Standing Ord. Docusate Sodium (Docusate Sodium 100 Mg Capsule) 100 mg PO DAILY PRN PRN Reason: Constipation Gabapentin (Gabapentin 400 Mg Capsule) 800 mg PO BID [facility] Last Admin: 05/10/21 07:48 Dose: 800 mg Documented by: ALETHEA Glucose (Glucose Gel 15 Gm Gel..Gram.) 15 gm PO Q15M PRN; Protocol PRN Reason: per Hypoglycemia Standing Ord. Lactated Ringer's (Lr) 1,000 mls @ 80 mls/hr IVCONT .[id number] [facility] Last Admin: 05/10/21 08:02 Dose: 80 mls/hr Documented by: ALETHEA Cefazolin Sodium/Dextrose (Ancef) 2 gm in 50 mls @ 100 mls/hr IV POSTOP [facility] Insulin Glargine (Insulin Glargine,Hum.Rec.Anlog 100 Unit/Ml 10 Ml Vial) 14 unit SUBCUT DAILY [facility] Insulin Human Lispro (Insulin Lispro 100 Unit/Ml 3 Ml Vial) 0 unit SUBCUT QIDACHS [facility]; Protocol Last Admin: 05/10/21 07:48 Dose: 6 unit Documented by: ALETHEA Metoprolol Succinate (Metoprolol Succinate Er 50 Mg Tab.Er.24h) 50 mg PO DAILY [facility]; Protocol Last Admin: 05/10/21 07:48 Dose: 50 mg Documented by: ALETHEA Omeprazole (Omeprazole 20 Mg Capsule.Dr) 20 mg PO DAILY [facility] Last Admin: 05/10/21 07:47 Dose: 20 mg Documented by: ALETHEA Ondansetron HCl (Ondansetron Hcl 4 Mg/2 Ml Vial) 4 mg IVPUSH Q8H PRN PRN Reason: Nausea and Vomiting Last Admin: 05/09/21 09:34 Dose: 4 mg Documented by: RAJI Oxycodone HCl (Oxycodone Hcl Immed Release 5 Mg Tablet) 5 mg PO Q6H PRN PRN Reason: Pain, Moderate (Pain Scale 4-6 Pharmacy Consult (Consult Rx Perform Med Rec) 1 each MISCELLANE ONCE PRN PRN Reason: Consult order Sodium Chloride (0.9 % Sodium Chloride Flush 3 Ml Syringe) 3 ml IVFLUSH QSHIFT [facility] Last Admin: 05/10/21 07:48 Dose: Not Given Documented by: ALETHEA Non-Admin Reason: IV Running Vitamin D (Cholecalciferol (Vitamin D3) 25 Mcg Tablet) 50 mcg PO DAILY [facility] Last Admin: 05/10/21 07:47 Dose: 50 mcg Documented by: ALETHEA <VAN Andrade - Last Filed: 05/10/21 09:31> Labs CBC & Chem 7: : 05/11/21 05:32 05/11/21 05:32 <VAN Andrade - Last Filed: 05/10/21 09:31> Labs: Laboratory Results - last 24 hr 05/09/21 05/09/21 05/10/21 12:34 20:11 06:16 MCV 94.8 MCH 31.0 MCHC 32.7 RDW 13.4 Plt Count 125 L MPV 10.8 Immature Gran % (Auto) 0.5 H Neut % (Auto) 80.0 H Lymph % (Auto) 11.1 L [place] % (Auto) 8.3 Eos % (Auto) 0.0 Baso % (Auto) 0.1 Lymph # (Auto) 1.5 [place] # (Auto) 1.1 Eos # (Auto) 0.0 Baso # (Auto) 0.0 Abs Immat Gran (auto) 0.07 H Absolute Neuts (auto) 10.7 H Absolute Nucleated RBC 0.000 Nucleated RBC % (auto) 0.0 Anion Gap Estim Creat Clear Calc Estimated GFR POC Glucose 231 H 290 H Random Glucose Calcium 05/10/21 05/10/21 06:16 07:15 MCV MCH MCHC RDW Plt Count MPV Immature Gran % (Auto) Neut % (Auto) Lymph % (Auto) [place] % (Auto) Eos % (Auto) Baso % (Auto) Lymph # (Auto) [place] # (Auto) Eos # (Auto) Baso # (Auto) Abs Immat Gran (auto) Absolute Neuts (auto) Absolute Nucleated RBC Nucleated RBC % (auto) Anion Gap 14 Estim Creat Clear Calc 51.3 Estimated GFR > 60 POC Glucose 271 H Random Glucose 307 H Calcium 8.7 D <VAN Andrade - Last Filed: 05/10/21 09:31> Assessment and Plan (1) Fracture of femoral neck, left: Status: Acute <VAN Andrade - Last Filed: 05/10/21 09:31> (2) Type 2 diabetes mellitus with hyperglycemia: Status: Acute <VAN Andrade - Last Filed: 05/10/21 09:31> Assessment and Plan: This is an 85 year old Cypriot speaking female with a history of DM, dementia, HTN, HLD, SVT who presented to the ED after a mechanical fall found to have left femoral neck fracture left femoral neck fracture POD #1 s/p left hemiarthroplasty 05/10 seen by cardiology prior to surgery. Intermediate cardiac risk sleepy this morning, will minimize narcotics for pain control if able acute blood loss anemia secondary to surgery no indication for transfusion at this time follow H/H closely thrombocytopenia follow CBC elevated BP likely r/t to pain will follow closely. If continues to be elevated will start Norvasc leukocytosis reactive, r/t hip fracture no evidence of infection; UA, CXR negative DM uncontrolled, HbA1c from 03/06 9.7 trulicity NF continue Lantus SSI, POCs HLD continue statin Neuropathy continue gabapentin gerd continue prilosec h/o SVT continue metoprolol mild transaminitis chronic dvt ppx - mechanical devices code status - full code HCP - son Aristides Neymar attending - dr. le <VAN Andrade - Last Filed: 05/10/21 09:31> Quality Stroke Does the patient have a stroke diagnosis?: No <VAN Andrade - Last Filed: 05/10/21 09:31> VTE Prior VTE?: No <VAN Andrade - Last Filed: 05/10/21 09:31> VTE Risk Level:: Medical - moderate - high <VAN Andrade - Last Filed: 05/10/21 09:31> VTE Device Contraindication: N/A - Device Ordered <VAN Andrade - Last Filed: 05/10/21 09:31> VTE Drug Contraindication: Treatment Not Indicated <VAN Andrade - Last Filed: 05/10/21 09:31>
[2021-05-10 11:19] LABS: Glucose, Whole Blood 222 mg/dL (60-115)
[2021-05-10] MEDS: Insulin Glargine,Hum.rec.anlog 100 UNIT/ML 10 ML VIAL 14 UNIT SUBCUT (11:34)
--- NOTE | 2021-05-10 11:41 | P.PNOP_ITS ---
Subjective Subjective Date of Service: 05/10/21 Interval history: POD 1 s/p Lt hip hemiarthropalsty no overnight events resting in bed, minimal pain Physical Exam Vital Signs: Vital Signs: Last Vital Signs Temp 97.9 F 05/10/21 10:52 Pulse 111 H 05/10/21 10:52 Resp 18 05/10/21 10:52 BP 122/66 05/10/21 10:52 Pulse Ox 99 05/10/21 10:52 BMI result Body Mass Index 29.2 Const: General: cooperative, healthy appearing and no acute distress Resp: Effort & Inspection: normal respiratory effort and able to speak in complete sentences Cardio: Rate: regular rate Peripheral pulses: Peripheral pulses 2+ throughout GI: Palpation (GI): Soft to palpation Skin: General skin exam: no rashes or lesions noted Extrem: Other: incision clean dry and intact. [place] intact. No erythema or effusion. Calf supple nontender. Neurovascularly intact. Procedures Date of Service Date of Service: 05/10/21 Progress Note: A&P Assessment and plan (1) Fracture of femoral neck, left: Status: Acute Assessment and Plan: * Continue pain mgmnt * Begin lovenox for dvt ppx * begin PT for LT hip camilla-post precautions * Dispo planning-Pending PT eval, pain mgmnt Fall Risk Details Current Medications: Current Medications Acetaminophen (Acetaminophen 325 Mg Tablet) 650 mg PO Q6H PRN PRN Reason: Pain, Mild (Pain Scale 1-3) Amitriptyline HCl (Amitriptyline Hcl 25 Mg Tablet) 25 mg PO DAILY [facility] Last Admin: 05/10/21 07:48 Dose: 25 mg Documented by: Atorvastatin Calcium (Atorvastatin Calcium 80 Mg Tablet) 80 mg PO DAILY [facility] Last Admin: 05/10/21 07:47 Dose: 80 mg Documented by: Dextrose (Dextrose 50 % 25 Gm/50 Ml Vial) 25 gm IVPUSH Q15M PRN; Protocol PRN Reason: per Hypoglycemia Standing Ord. Docusate Sodium (Docusate Sodium 100 Mg Capsule) 100 mg PO DAILY PRN PRN Reason: Constipation Gabapentin (Gabapentin 400 Mg Capsule) 800 mg PO BID [facility] Last Admin: 05/10/21 07:48 Dose: 800 mg Documented by: Glucose (Glucose Gel 15 Gm Gel..Gram.) 15 gm PO Q15M PRN; Protocol PRN Reason: per Hypoglycemia Standing Ord. Lactated Ringer's (Lr) 1,000 mls @ 80 mls/hr IVCONT .[id number] [facility] Last Admin: 05/10/21 08:02 Dose: 80 mls/hr Documented by: Cefazolin Sodium/Dextrose (Ancef) 2 gm in 50 mls @ 100 mls/hr IV POSTOP [facility] Insulin Glargine (Insulin Glargine,Hum.Rec.Anlog 100 Unit/Ml 10 Ml Vial) 14 unit SUBCUT DAILY [facility] Last Admin: 05/10/21 11:34 Dose: 14 unit Documented by: Insulin Human Lispro (Insulin Lispro 100 Unit/Ml 3 Ml Vial) 0 unit SUBCUT QIDACHS [facility]; Protocol Last Admin: 05/10/21 11:35 Dose: 4 unit Documented by: Metoprolol Succinate (Metoprolol Succinate Er 50 Mg Tab.Er.24h) 50 mg PO DAILY [facility]; Protocol Last Admin: 05/10/21 07:48 Dose: 50 mg Documented by: Omeprazole (Omeprazole 20 Mg Capsule.Dr) 20 mg PO DAILY [facility] Last Admin: 05/10/21 07:47 Dose: 20 mg Documented by: Ondansetron HCl (Ondansetron Hcl 4 Mg/2 Ml Vial) 4 mg IVPUSH Q8H PRN PRN Reason: Nausea and Vomiting Last Admin: 05/09/21 09:34 Dose: 4 mg Documented by: Oxycodone HCl (Oxycodone Hcl Immed Release 5 Mg Tablet) 5 mg PO Q6H PRN PRN Reason: Pain, Moderate (Pain Scale 4-6 Pharmacy Consult (Consult Rx Perform Med Rec) 1 each MISCELLANE ONCE PRN PRN Reason: Consult order Sodium Chloride (0.9 % Sodium Chloride Flush 3 Ml Syringe) 3 ml IVFLUSH QSHIFT [facility] Last Admin: 05/10/21 07:48 Dose: Not Given Documented by: Vitamin D (Cholecalciferol (Vitamin D3) 25 Mcg Tablet) 50 mcg PO DAILY [facility] Last Admin: 05/10/21 07:47 Dose: 50 mcg Documented by: Time Spent With Patient Time: Total time spent is greater than 50% in coordination of care (as documented) at patient's floor/unit and/or counseling patient: Time with patient: less than 15 minutes Quality Stroke Does the patient have a stroke diagnosis?: No VTE Prior VTE?: No VTE Risk Level:: Medical - moderate - high VTE Device Contraindication: N/A - Device Ordered VTE Drug Contraindication: Treatment Not Indicated
--- NOTE | 2021-05-10 11:59 | ECG_ITS ---
Test Reason : tachycardia Blood Pressure : / mmHG Vent. Rate : 100 BPM Atrial Rate : 100 BPM P-R Int : 144 ms QRS Dur : 084 ms QT Int : 366 ms P-R-T Axes : 019 -18 023 degrees QTc Int : 472 ms Sinus rhythm with frequent Premature ventricular complexes Cannot rule out inferior infarct Abnormal ECG When compared to the previous EKG of Premature ventricular complexes Present Referred By: Natasha Diehl Electronically Signed By:Joel Robert
[2021-05-10 12:15] LABS: Magnesium 1.6 mg/dL (1.6-2.6)
[2021-05-10] MEDS: Enoxaparin Sodium 40 MG/0.4 ML SYRINGE SUBCUT (12:34)
[2021-05-10] MEDS: Magnesium Sulfate/D5W 1 GM/100 ML PIGGYBACK IV (13:39)
[2021-05-10 16:51] LABS: Glucose, Whole Blood 223 mg/dL (60-115)
--- NOTE | 2021-05-10 18:17 | PC.NURSE ---
Pt drowsy but arousable all shift. tolerating small sips of juice and a few bites at meals. aquacel to left hip CDI. Oriented to person only.
[2021-05-10 20:22] LABS: Glucose, Whole Blood 143 mg/dL (60-115)
[2021-05-11] VITALS (11 sets, daily range): BP systolic 95–158; BP diastolic 51–80; PULSE 73–116; RESP 16–19; TEMP 36.6–37.1; O2SAT 90–100
--- NOTE | 2021-05-11 00:43 | MHC.PIE ---
p; monitor shows multiple 3 beat v tach since 2329 i; dr portillo notified; new order mag 2g now. new lab mag and K now e; will cont to monitor
[2021-05-11] MEDS: Magnesium Sulfate/H2O 2 GM/50 ML PIGGYBACK IV (01:01)
[2021-05-11 01:03] LABS: Magnesium 1.9 mg/dL (1.6-2.6); Potassium 3.9 mmol/L (3.3-5.1)
[2021-05-11 05:53] LABS: Mean Corpuscular HGB Conc 33.3 g/dl (31.0-35.0); Mean Corpuscular Hemoglobin 32.1 pg (27.0-33.0); Mean Corpuscular Volume 96.4 fL (80.0-98.0); Mean Platelet Volume 12.1 fL (9.4-12.3); Platelet Count 112 X10*3/uL (160-400); Red Cell Distribution Width 13.5 % (11.0-16.0); White Blood Count 15.8 X10*3/uL (4.8-10.8)
[2021-05-11 06:18] LABS: Anion Gap 14 (12-20); Blood Urea Nitrogen 14 mg/dL (9-16); Calcium 8.5 mg/dL (8.4-10.2); Carbon Dioxide 27 mmol/L (22-29); Chloride 102 mmol/L (96-108); Creatinine Clr Calc Pharmacy 60.9; Estimated Glomerular Filt Rate > 60; Glucose Random 235 mg/dL (60-115); Sodium 139 mmol/L (135-145)
[2021-05-11 07:17] LABS: Glucose, Whole Blood 207 mg/dL (60-115)
[2021-05-11] MEDS: Insulin Lispro 100 UNIT/ML 3 ML VIAL SUBCUT ×3 (07:52→20:49)
--- NOTE | 2021-05-11 08:50 | PM.PNORT ---
Subjective Subjective Date of Service: 05/11/21 Interval history: POD@ s/p left hip camilla. Patient resting comfortably in bed. Pain is managed. No additional complaints. Physical Exam Vital Signs: Vital Signs: Last Vital Signs Temp 98.4 F 05/11/21 07:04 Pulse 110 H 05/11/21 07:04 Resp 18 05/11/21 07:04 BP 158/80 H 05/11/21 07:04 Pulse Ox 91 L 05/11/21 07:04 BMI result Body Mass Index 29.2 Const: General: cooperative, healthy appearing and no acute distress Resp: Effort & Inspection: normal respiratory effort and able to speak in complete sentences Cardio: Rate: regular rate Peripheral pulses: Peripheral pulses 2+ throughout GI: Palpation (GI): Soft to palpation Skin: Lesions: no lesions Rashes: no rashes Extrem: Other: Aquacel is clean dry and intact.? No erythema or? effusion.? NVI. Procedures Date of Service Date of Service: 05/11/21 Progress Note: A&P Assessment and plan (1) Closed fracture of left hip: Status: Acute Assessment and Plan: Continue pain mgmnt Continue lovenox for dvt ppx Continue PT for left hip camilla Dispo planning-Pain mgmnt, Patient ready for D/C to STR from ortho perspective. Fall Risk Details Current Medications: Current Medications Acetaminophen (Acetaminophen 325 Mg Tablet) 650 mg PO Q6H PRN PRN Reason: Pain, Mild (Pain Scale 1-3) Amitriptyline HCl (Amitriptyline Hcl 25 Mg Tablet) 25 mg PO DAILY [facility] Last Admin: 05/10/21 07:48 Dose: 25 mg Documented by: Atorvastatin Calcium (Atorvastatin Calcium 80 Mg Tablet) 80 mg PO DAILY [facility] Last Admin: 05/10/21 07:47 Dose: 80 mg Documented by: Dextrose (Dextrose 50 % 25 Gm/50 Ml Vial) 25 gm IVPUSH Q15M PRN; Protocol PRN Reason: per Hypoglycemia Standing Ord. Docusate Sodium (Docusate Sodium 100 Mg Capsule) 100 mg PO DAILY [facility] Enoxaparin Sodium (Enoxaparin Sodium 40 Mg/0.4 Ml Syringe) 40 mg SUBCUT Q24H [facility] Last Admin: 05/10/21 12:34 Dose: 40 mg Documented by: Gabapentin (Gabapentin 400 Mg Capsule) 800 mg PO BID [facility] Last Admin: 05/10/21 19:46 Dose: Not Given Documented by: Glucose (Glucose Gel 15 Gm Gel..Gram.) 15 gm PO Q15M PRN; Protocol PRN Reason: per Hypoglycemia Standing Ord. Lactated Ringer's (Lr) 1,000 mls @ 80 mls/hr IVCONT .[id number] [facility] Last Infusion: 05/11/21 03:07 Dose: 80 mls/hr Documented by: Cefazolin Sodium/Dextrose (Ancef) 2 gm in 50 mls @ 100 mls/hr IV POSTOP RAMAN Insulin Glargine (Insulin Glargine,Hum.Rec.Anlog 100 Unit/Ml 10 Ml Vial) 14 unit SUBCUT DAILY [facility] Last Admin: 05/10/21 11:34 Dose: 14 unit Documented by: Insulin Human Lispro (Insulin Lispro 100 Unit/Ml 3 Ml Vial) 0 unit SUBCUT QIDACHS [facility]; Protocol Last Admin: 05/11/21 07:52 Dose: 4 unit Documented by: Metoprolol Succinate (Metoprolol Succinate Er 50 Mg Tab.Er.24h) 50 mg PO DAILY [facility]; Protocol Last Admin: 05/10/21 07:48 Dose: 50 mg Documented by: Omeprazole (Omeprazole 20 Mg Capsule.Dr) 20 mg PO DAILY [facility] Last Admin: 05/10/21 07:47 Dose: 20 mg Documented by: Ondansetron HCl (Ondansetron Hcl 4 Mg/2 Ml Vial) 4 mg IVPUSH Q8H PRN PRN Reason: Nausea and Vomiting Last Admin: 05/09/21 09:34 Dose: 4 mg Documented by: Oxycodone HCl (Oxycodone Hcl Immed Release 5 Mg Tablet) 5 mg PO Q6H PRN PRN Reason: Pain, Moderate (Pain Scale 4-6 Pharmacy Consult (Consult Rx Perform Med Rec) 1 each MISCELLANE ONCE PRN PRN Reason: Consult order Polyethylene Glycol (Polyethylene Glycol 3350 17 Gm Powd.Pack) 17 gm PO DAILY PRN PRN Reason: Constipation Sodium Chloride (0.9 % Sodium Chloride Flush 3 Ml Syringe) 3 ml IVFLUSH QSHIFT [facility] Last Admin: 05/11/21 07:53 Dose: Not Given Documented by: Vitamin D (Cholecalciferol (Vitamin D3) 25 Mcg Tablet) 50 mcg PO DAILY [facility] Last Admin: 05/10/21 07:47 Dose: 50 mcg Documented by: Time Spent With Patient Time: Total time spent is greater than 50% in coordination of care (as documented) at patient's floor/unit and/or counseling patient: Time with patient: less than 15 minutes Quality Stroke Does the patient have a stroke diagnosis?: No VTE Prior VTE?: No VTE Risk Level:: Medical - moderate - high VTE Device Contraindication: N/A - Device Ordered VTE Drug Contraindication: Treatment Not Indicated
[2021-05-11] MEDS: Lactated Ringers 1,000 ML 80 ML IVCONT ×2 (10:14→22:57)
[2021-05-11] MEDS: Cholecalciferol (Vitamin D3) 25 MCG TABLET 50 MCG PO (10:15)
[2021-05-11] MEDS: Omeprazole 20 MG CAPSULE.DR PO (10:15)
[2021-05-11] MEDS: Docusate Sodium 100 MG CAPSULE PO (10:15)
[2021-05-11] MEDS: Atorvastatin Calcium 80 MG TABLET PO (10:15)
[2021-05-11] MEDS: Insulin Glargine,Hum.rec.anlog 100 UNIT/ML 10 ML VIAL 14 UNIT SUBCUT (10:16)
[2021-05-11] MEDS: Amitriptyline HCl 25 MG TABLET PO (10:16)
[2021-05-11] MEDS: Gabapentin 400 MG CAPSULE 800 MG PO ×2 (10:16→20:49)
--- NOTE | 2021-05-11 10:26 | P.PNCA_ITS ---
Subjective Subjective Date of Service: 05/11/21 Interval history: Communicated using mechanic senior. Denies any cardiac complaints. Review of Systems Review of Systems Yes all other systems are reviewed and are negative Cardiovascular: Reports as per HPI, Reports no additional cardiovascular comp laints, Denies acrocyanosis, Denies cool extremities, Denies painful fingertips, Denies chest pain, Denies chest pain at rest, Denies diaphoresis, Denies syncope, Denies irregular heart rhythm, Denies claudication, Denies leg edema, Denies lightheadedness, Denies palpitations and Denies dyspnea Respiratory: Denies dyspnea Denies syncope Endocrine: Denies palpitations Physical Exam Vital Signs: Last Vital Signs Temp 98.4 F 05/11/21 07:04 Pulse 110 H 05/11/21 07:04 Resp 18 05/11/21 07:04 BP 158/80 H 05/11/21 07:04 Pulse Ox 91 L 05/11/21 07:04 BMI result Body Mass Index 29.2 Const General: cooperative and no acute distress [facility] Other: Unremarkable Neck Neck: Yes normal visual inspection Chest Chest palpation & inspection: normal inspection of the chest Resp Auscultation: clear to auscultation bilaterally, no crackles and no wheezes Cardio Jugular venous distension: no JVD Palpation: normal PMI Heart sounds: S1 normal heart sound present, S2 normal heart sound present, no gallops, no murmurs and no rubs GI Palpation (GI): Soft to palpation Back/Spine/Pelvis Other: unremarkable Skin General skin exam: no rashes or lesions noted Neuro Cranial nerves: Yes Other cranial nerve findings present Extrem General: Yes no clubbing, cyanosis or edema Psych Mental Status: other Objective Labs and Meds Result diagrams: 05/11/21 05:32 05/11/21 05:32 Lab results: Laboratory Results - last 24 hr 05/10/21 05/10/21 05/10/21 06:16 11:15 16:40 WBC RBC Hgb Hct MCV MCH MCHC RDW Plt Count MPV Absolute Nucleated RBC Nucleated RBC % (auto) Sodium Potassium Chloride Carbon Dioxide Anion Gap BUN Creatinine Estim Creat Clear Calc Estimated GFR POC Glucose 222 H 223 H Random Glucose Calcium Magnesium 1.6 05/10/21 05/11/21 05/11/21 19:38 00:39 05:32 WBC 15.8 H RBC 2.80 L Hgb 9.0 L Hct 27.0 L MCV 96.4 MCH 32.1 MCHC 33.3 RDW 13.5 Plt Count 112 L MPV 12.1 Absolute Nucleated RBC 0.000 Nucleated RBC % (auto) 0.0 Sodium Potassium 3.9 Chloride Carbon Dioxide Anion Gap BUN Creatinine Estim Creat Clear Calc Estimated GFR POC Glucose 143 H Random Glucose Calcium Magnesium 1.9 05/11/21 05/11/21 05:32 07:13 WBC RBC Hgb Hct MCV MCH MCHC RDW Plt Count MPV Absolute Nucleated RBC Nucleated RBC % (auto) Sodium 139 Potassium 4.0 Chloride 102 Carbon Dioxide 27 Anion Gap 14 BUN 14 Creatinine 0.64 Estim Creat Clear Calc 60.9 Estimated GFR > 60 POC Glucose 207 H Random Glucose 235 H Calcium 8.5 Magnesium Progress Note: A&P Assessment and plan (1) Fracture of femoral neck, left: Status: Acute (2) SVT (supraventricular tachycardia): Status: Acute (3) Sinus tachycardia: Status: Acute (4) PVC (premature ventricular contraction): Status: Acute Assessment and Plan: Patient is now status post left hip hemiarthroplasty. Okay from cardiac but she has sinus tachycardia as well as PVCs on the telemetry. May consider increasing the beta-blockers as the blood pressure is also on the higher side. Otherwise, echocardiogram from 2019 shows normal LVEF; moderate mitral regurgitation, mild aortic regurgitation and mild pulmonary hypertension. Myocardial perfusion imaging study from 2019 also shows normal perfusion. If able, we can see in office in [place], but she hasn't been seen in a while. Fall Risk Details Current Medications: Current Medications Acetaminophen (Acetaminophen 325 Mg Tablet) 650 mg PO Q6H PRN PRN Reason: Pain, Mild (Pain Scale 1-3) Amitriptyline HCl (Amitriptyline Hcl 25 Mg Tablet) 25 mg PO DAILY [facility] Last Admin: 05/11/21 10:16 Dose: 25 mg Documented by: Atorvastatin Calcium (Atorvastatin Calcium 80 Mg Tablet) 80 mg PO DAILY [facility] Last Admin: 05/11/21 10:15 Dose: 80 mg Documented by: Dextrose (Dextrose 50 % 25 Gm/50 Ml Vial) 25 gm IVPUSH Q15M PRN; Protocol PRN Reason: per Hypoglycemia Standing Ord. Docusate Sodium (Docusate Sodium 100 Mg Capsule) 100 mg PO DAILY [facility] Last Admin: 05/11/21 10:15 Dose: 100 mg Documented by: Enoxaparin Sodium (Enoxaparin Sodium 40 Mg/0.4 Ml Syringe) 40 mg SUBCUT Q24H [facility] Last Admin: 05/10/21 12:34 Dose: 40 mg Documented by: Gabapentin (Gabapentin 400 Mg Capsule) 800 mg PO BID [facility] Last Admin: 05/11/21 10:16 Dose: 800 mg Documented by: Glucose (Glucose Gel 15 Gm Gel..Gram.) 15 gm PO Q15M PRN; Protocol PRN Reason: per Hypoglycemia Standing Ord. Lactated Ringer's (Lr) 1,000 mls @ 80 mls/hr IVCONT .[id number] [facility] Last Admin: 05/11/21 10:14 Dose: 80 mls/hr Documented by: Cefazolin Sodium/Dextrose (Ancef) 2 gm in 50 mls @ 100 mls/hr IV POSTOP [facility] Insulin Glargine (Insulin Glargine,Hum.Rec.Anlog 100 Unit/Ml 10 Ml Vial) 14 unit SUBCUT DAILY [facility] Last Admin: 05/11/21 10:16 Dose: 14 unit Documented by: Insulin Human Lispro (Insulin Lispro 100 Unit/Ml 3 Ml Vial) 0 unit SUBCUT QIDACHS [facility]; Protocol Last Admin: 05/11/21 07:52 Dose: 4 unit Documented by: Metoprolol Succinate (Metoprolol Succinate Er 25 Mg Tab.Er.24h) 75 mg PO DAILY [facility]; Protocol Omeprazole (Omeprazole 20 Mg Capsule.Dr) 20 mg PO DAILY [facility] Last Admin: 05/11/21 10:15 Dose: 20 mg Documented by: Ondansetron HCl (Ondansetron Hcl 4 Mg/2 Ml Vial) 4 mg IVPUSH Q8H PRN PRN Reason: Nausea and Vomiting Last Admin: 05/09/21 09:34 Dose: 4 mg Documented by: Oxycodone HCl (Oxycodone Hcl Immed Release 5 Mg Tablet) 5 mg PO Q6H PRN PRN Reason: Pain, Moderate (Pain Scale 4-6 Pharmacy Consult (Consult Rx Perform Med Rec) 1 each MISCELLANE ONCE PRN PRN Reason: Consult order Polyethylene Glycol (Polyethylene Glycol 3350 17 Gm Powd.Pack) 17 gm PO DAILY PRN PRN Reason: Constipation Sodium Chloride (0.9 % Sodium Chloride Flush 3 Ml Syringe) 3 ml IVFLUSH QSHIFT [facility] Last Admin: 05/11/21 07:53 Dose: Not Given Documented by: Vitamin D (Cholecalciferol (Vitamin D3) 25 Mcg Tablet) 50 mcg PO DAILY [facility] Last Admin: 05/11/21 10:15 Dose: 50 mcg Documented by: Time Spent With Patient Time: Total time spent is greater than 50% in coordination of care (as documented) at patient's floor/unit and/or counseling patient: Time with patient: less than 15 minutes Progress Note: Quality Stroke Does the patient have a stroke diagnosis?: No Procedures Date of Service Date of Service: 05/11/21
[2021-05-11] MEDS: oxyCODONE HCl Immed Release 5 MG TABLET PO (10:32)
[2021-05-11] MEDS: polyethylene glycoL 3350 17 GM POWD.PACK PO (10:32)
[2021-05-11] MEDS: Metoprolol Succinate ER 25 MG TAB.ER.24H 75 MG PO ×2 (10:33→20:48)
[2021-05-11 11:14] LABS: Glucose, Whole Blood 272 mg/dL (60-115)
--- NOTE | 2021-05-11 11:27 | P.PNIM_ITS ---
Subjective Subjective Date of Service: 05/11/21 Interval History: Seen and examined this morning Follow-up for left femoral neck fracture status post left hemiarthroplasty ongoing sinus tach and frequent PVCs awake and alert this morning no shortness of breath or chest pain, off oxygen this morning Review of Systems Review of Systems: Yes all other systems are reviewed and are negative Constitutional Constitutional: Denies chills and Denies fever(s) Cardiovascular Cardiovascular: Denies chest pain Respiratory Respiratory: Denies cough Gastrointestinal Gastrointestinal: Denies abdominal pain Physical Exam Vital Signs: Vital Signs: Last Vital Signs Temp 98 F 05/11/21 11:06 Pulse 109 H 05/11/21 11:06 Resp 19 05/11/21 11:06 BP 148/74 H 05/11/21 11:06 Pulse Ox 90 L 05/11/21 11:06 BMI result Body Mass Index 29.2 Const: General: comfortable, alert and awake Nutritional Appearance: well nourished Orientation/consciousness: oriented to person and oriented to place HENMT: Head: Yes normocephalic and Yes atraumatic Eyes: Sclerae: sclerae normal Resp: Effort & Inspection: normal respiratory effort and no respiratory distress Cardio: Rate: tachycardic Rhythm: regular rhythm GI: Palpation (GI): Soft to palpation and nontender : Other: burgess draining clear yellow urine Skin: Other: small laceration over left eye; repaired with dermabond Neuro: General: oriented to person and oriented to place Cranial nerves: Yes CN's II-XII intact bilaterally and Yes Bilaterally intact EOM present Extrem: Other: left hip bandage c/d/i; no lege edema Objective Data Active Medications Acetaminophen (Acetaminophen 325 Mg Tablet) 650 mg PO Q6H PRN PRN Reason: Pain, Mild (Pain Scale 1-3) Amitriptyline HCl (Amitriptyline Hcl 25 Mg Tablet) 25 mg PO DAILY [facility] Last Admin: 05/11/21 10:16 Dose: 25 mg Documented by: ALETHEA Atorvastatin Calcium (Atorvastatin Calcium 80 Mg Tablet) 80 mg PO DAILY [facility] Last Admin: 05/11/21 10:15 Dose: 80 mg Documented by: ALETHEA Dextrose (Dextrose 50 % 25 Gm/50 Ml Vial) 25 gm IVPUSH Q15M PRN; Protocol PRN Reason: per Hypoglycemia Standing Ord. Docusate Sodium (Docusate Sodium 100 Mg Capsule) 100 mg PO DAILY [facility] Last Admin: 05/11/21 10:15 Dose: 100 mg Documented by: ALETHEA Enoxaparin Sodium (Enoxaparin Sodium 40 Mg/0.4 Ml Syringe) 40 mg SUBCUT Q24H [facility] Last Admin: 05/10/21 12:34 Dose: 40 mg Documented by: ALETHEA Gabapentin (Gabapentin 400 Mg Capsule) 800 mg PO BID [facility] Last Admin: 05/11/21 10:16 Dose: 800 mg Documented by: ALETHEA Glucose (Glucose Gel 15 Gm Gel..Gram.) 15 gm PO Q15M PRN; Protocol PRN Reason: per Hypoglycemia Standing Ord. Lactated Ringer's (Lr) 1,000 mls @ 80 mls/hr IVCONT .[id number] [facility] Last Admin: 05/11/21 10:14 Dose: 80 mls/hr Documented by: ALETHEA Cefazolin Sodium/Dextrose (Ancef) 2 gm in 50 mls @ 100 mls/hr IV POSTOP [facility] Insulin Glargine (Insulin Glargine,Hum.Rec.Anlog 100 Unit/Ml 10 Ml Vial) 14 unit SUBCUT DAILY [facility] Last Admin: 05/11/21 10:16 Dose: 14 unit Documented by: ALETHEA Insulin Human Lispro (Insulin Lispro 100 Unit/Ml 3 Ml Vial) 0 unit SUBCUT QIDACHS [facility]; Protocol Last Admin: 05/11/21 07:52 Dose: 4 unit Documented by: ALETHEA Metoprolol Succinate (Metoprolol Succinate Er 25 Mg Tab.Er.24h) 75 mg PO DAILY [facility]; Protocol Last Admin: 05/11/21 10:33 Dose: 75 mg Documented by: ALETHEA Omeprazole (Omeprazole 20 Mg Capsule.Dr) 20 mg PO DAILY [facility] Last Admin: 05/11/21 10:15 Dose: 20 mg Documented by: ALETHEA Ondansetron HCl (Ondansetron Hcl 4 Mg/2 Ml Vial) 4 mg IVPUSH Q8H PRN PRN Reason: Nausea and Vomiting Last Admin: 05/09/21 09:34 Dose: 4 mg Documented by: RAJI Oxycodone HCl (Oxycodone Hcl Immed Release 5 Mg Tablet) 5 mg PO Q6H PRN PRN Reason: Pain, Moderate (Pain Scale 4-6 Last Admin: 05/11/21 10:32 Dose: 5 mg Documented by: ALETHEA Pharmacy Consult (Consult Rx Perform Med Rec) 1 each MISCELLANE ONCE PRN PRN Reason: Consult order Polyethylene Glycol (Polyethylene Glycol 3350 17 Gm Powd.Pack) 17 gm PO DAILY PRN PRN Reason: Constipation Last Admin: 05/11/21 10:32 Dose: 17 gm Documented by: ALETHEA Sodium Chloride (0.9 % Sodium Chloride Flush 3 Ml Syringe) 3 ml IVFLUSH QSHIFT [facility] Last Admin: 05/11/21 07:53 Dose: Not Given Documented by: ALETHEA Non-Admin Reason: IV Running Vitamin D (Cholecalciferol (Vitamin D3) 25 Mcg Tablet) 50 mcg PO DAILY [facility] Last Admin: 05/11/21 10:15 Dose: 50 mcg Documented by: ALETHEA Labs CBC & Chem 7: 05/11/21 05:32 05/11/21 05:32 Labs: Laboratory Results - last 24 hr 05/10/21 05/10/21 05/10/21 06:16 16:40 19:38 MCV MCH MCHC RDW Plt Count MPV Absolute Nucleated RBC Nucleated RBC % (auto) Anion Gap Estim Creat Clear Calc Estimated GFR POC Glucose 223 H 143 H Random Glucose Calcium Magnesium 1.6 05/11/21 05/11/21 05/11/21 00:39 05:32 05:32 MCV 96.4 MCH 32.1 MCHC 33.3 RDW 13.5 Plt Count 112 L MPV 12.1 Absolute Nucleated RBC 0.000 Nucleated RBC % (auto) 0.0 Anion Gap 14 Estim Creat Clear Calc 60.9 Estimated GFR > 60 POC Glucose Random Glucose 235 H Calcium 8.5 Magnesium 1.9 05/11/21 05/11/21 07:13 11:06 MCV MCH MCHC RDW Plt Count MPV Absolute Nucleated RBC Nucleated RBC % (auto) Anion Gap Estim Creat Clear Calc Estimated GFR POC Glucose 207 H 272 H Random Glucose Calcium Magnesium Assessment and Plan (1) PVC (premature ventricular contraction): Status: Acute (2) Sinus tachycardia: Status: Acute (3) HTN (hypertension): Status: Acute (4) Dementia: Status: Acute (5) Type 2 diabetes mellitus with hyperglycemia: Status: Acute Assessment and Plan: This is an 85 year old Amharic speaking female with a history of DM, dementia, HTN, HLD, SVT who presented to the ED after a mechanical fall found to have left femoral neck fracture left femoral neck fracture POD #2 s/p left hemiarthroplasty 05/10 seen by cardiology prior to surgery. Intermediate cardiac risk minimize narcotics for pain control if able due to sedation with morphine acute blood loss anemia secondary to surgery no indication for transfusion at this time follow H/H closely thrombocytopenia follow CBC elevated BP likely r/t to pain will increase dose of metoprolol leukocytosis probably reactive, r/t hip fracture no evidence of infection; UA, CXR negative frequent PVCs mag checked treated with IV magnesium continue BB h/o SVT continue metoprolol DM uncontrolled, HbA1c from 03/06 9.7 trulicity NF continue Lantus SSI, POCs HLD continue statin Neuropathy continue gabapentin gerd continue prilosec mild transaminitis chronic dvt ppx - lovenox started 05/10 code status - full code HCP - son Aristides Blackmon attending - dr. mo Quality Stroke Does the patient have a stroke diagnosis?: No VTE Prior VTE?: No VTE Risk Level:: Medical - moderate - high VTE Device Contraindication: N/A - Device Ordered VTE Drug Contraindication: Treatment Not Indicated
--- NOTE | 2021-05-11 12:20 | HO.POSTANES ---
Post Anesthesia Evaluation Post Anesthesia Evaluation Vital Signs: Vital Signs Temp Pulse Resp BP Pulse Ox 05/11/21 11:06 98 F 109 H 19 148/74 H 90 L 05/11/21 07:04 98.4 F 110 H 18 158/80 H 91 L 05/11/21 04:00 98.7 F 112 H 18 126/58 L 95 Anesthesia: General Mental Status: Awake Pain Control: Satisfactory Nausea/Vomiting: None Hydration: Adequate
[2021-05-11] MEDS: Enoxaparin Sodium 40 MG/0.4 ML SYRINGE SUBCUT (13:15)
--- NOTE | 2021-05-11 14:34 | ECG_ITS ---
Test Reason : tachycarida Blood Pressure : / mmHG Vent. Rate : 160 BPM Atrial Rate : 111 BPM P-R Int : 000 ms QRS Dur : 088 ms QT Int : 284 ms P-R-T Axes : 000 010 -22 degrees QTc Int : 463 ms Supraventricular tachycardia Cannot rule out Inferior infarct , age undetermined Abnormal ECG When compared to the previous EKG of SVT present Referred By: Natasha Diehl Electronically Signed By:Joel Robert
[2021-05-11 14:45] LABS: Glucose, Whole Blood 184 mg/dL (60-115)
--- NOTE | 2021-05-11 14:48 | MHC.CM.PN ---
Addendum entered by Melissa Weinstein 05/11/21 15:16: PAXTON CALLED DONALDO WHO REPORTS SHE IS THE PTS [id number]. SHE REPORTS THE PT LIVES WITH HER AND HER AND HER IS THE PTS BRIM PRESSER DONALDO REPORTS THEY ARE AWARE THE PT WILL LIKELY NEED STR HOWEVER THEY ARE NOT FAMILIAR WITH ANY FACILITIES AFTER FURTHER DISCUSSION, DONALDO AND PTS SON REQUESTED A REFERRAL TO [facility]. DONALDO IS UNSURE IF PT HAS A HCP HOWEVER PTS SON REPORTS HE THINKS THAT IT IS HIM BUT HE DOES NOT KNOW WHERE THEY MAY BE A COPY. A REFERRAL WILL BE MADE TO [facility]. PAXTON WILL CALL DR SANTAMARIA'S OFFICE TOMORROW TO DETERMINE IF THERE IS A COPY OF PTS HCP ON FILE Original Note: CM ATTEMPTED TO CONTACT PRIMARY CONTACT (DONALDO [phone]) TWICE YESTERDAY. PAXTON CALLED PANEL RAISER OPERATOR TO MEET WITH PT HOWEVER WHEN SHE ARRIVED, PT WAS BEING ATTENDED TO BY SEVERAL PROVIDERS DUE TO INCREASED HEART RATE. 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 CM WILL ATTEMPT TO CONTACT FAMILY AGAIN AT A LATER TIME TO OBTAIN MORE HISTORY PT HAS A DEMENTIA DIAGNOSIS.
[2021-05-11] MEDS: Metoprolol Tartrate 25 MG TABLET PO (15:30)
--- NOTE | 2021-05-11 16:03 | ECG_ITS ---
Test Reason : RHYTHM CK Blood Pressure : / mmHG Vent. Rate : 110 BPM Atrial Rate : 110 BPM P-R Int : 152 ms QRS Dur : 082 ms QT Int : 326 ms P-R-T Axes : 051 014 044 degrees QTc Int : 441 ms Sinus tachycardia Otherwise normal ECG When compared with ECG of Criteria for Inferior infarct are no longer Present SVT not present anymore Referred By: April Ingram Electronically Signed By:Joel Robert
[2021-05-11 16:31] LABS: Glucose, Whole Blood 189 mg/dL (60-115)
--- NOTE | 2021-05-11 16:57 | PC.NURSE ---
1431: message recieved from [facility] regarding pt in Atrial tachycardia 160. Message sent to Corinna Franks. 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 Color sallow, BP 100/53 106/57. Sats on 2L 97%. Corinna in to see and evaluate pt. Will order lopressor IV. 1440: BP rechecked and now 75 systolic. Pt placed in trendelenberg and priority message sent to Corinna Franks. Adenosine ordered, nursing superviser notified, code cart in room, Dr Fermin in to see pt along with superviser, CHIEF CONCIERGE Clementina, EKG obtained. Adenosine administered by RN and MD. HR improved to 110. BP stabilized. Dr Diehl notified by and PA and read latest EKG. Nothing further at this time 1602: HR in 160-170's. BP 120/61. Corinna Franks notified, Adenosine ordered. Dr Holland in along with Clementina GUSTAFSON, Nursing superviser Nura. Adenosine administered by Clementina and . BP stabilized and HR 106. 1617: Pt in SR with PVC per [facility]. Will continue to monitor pt
[2021-05-11 17:01] LABS: Hemoglobin 8.7 g/dl (12.0-16.0); Mean Corpuscular Volume 95.2 fL (80.0-98.0); PLT CLUMP 1; SCAN SMEAR FLAG 1
[2021-05-11 17:03] LABS: Basophils Percent Auto 0.1 % (0-2); Hematocrit 25.7 % (37.0-47.0); Imm Gran Abs Auto 0.07 X10*3/uL (0.00-0.03); Imm Gran Pct Auto 0.5 % (0.0-0.4); Lymphocytes Absolute Auto 1.8 X10*3/uL (1.2-4.9); Lymphocytes Percent Auto 12.1 % (20-40); Mean Corpuscular HGB Conc 33.9 g/dl (31.0-35.0); Mean Corpuscular Hemoglobin 32.2 pg (27.0-33.0); Mean Platelet Volume 12.3 fL (9.4-12.3); Monocytes Absolute Auto 1.5 X10*3/uL (0.1-1.2); Monocytes Percent Auto 10.2 % (2-11); Neutrophils Absolute Auto 11.1 x10*3/uL (2.0-8.3); Neutrophils Percent Auto 77.1 % (45-73); Platelet Count 120 X10*3/uL (160-400); Red Cell Distribution Width 13.4 % (11.0-16.0); White Blood Count 14.4 X10*3/uL (4.8-10.8)
[2021-05-11 17:07] LABS: MANUAL DIFF FLAG NO
[2021-05-11 17:20] LABS: Anion Gap 11 (12-20); Blood Urea Nitrogen 13 mg/dL (9-16); Calcium 8.4 mg/dL (8.4-10.2); Carbon Dioxide 29 mmol/L (22-29); Chloride 102 mmol/L (96-108); Creatinine Clr Calc Pharmacy 66.1; Estimated Glomerular Filt Rate > 60; Glucose Random 224 mg/dL (60-115); Potassium 3.8 mmol/L (3.3-5.1); Sodium 138 mmol/L (135-145)
--- NOTE | 2021-05-11 20:00 | ECG_ITS ---
Test Reason : new antiarrhthmic Blood Pressure : / mmHG Vent. Rate : 105 BPM Atrial Rate : 105 BPM P-R Int : 170 ms QRS Dur : 090 ms QT Int : 342 ms P-R-T Axes : 040 011 032 degrees QTc Int : 452 ms Sinus tachycardia with frequent Premature ventricular complexes Otherwise normal ECG When compared to the previous EKG of Premature ventricular complexes Present Referred By: Natasha Diehl Electronically Signed By:Joel Robert
[2021-05-11 20:33] LABS: Glucose, Whole Blood 216 mg/dL (60-115)
[2021-05-12] VITALS (10 sets, daily range): BP systolic 104–151; BP diastolic 54–86; PULSE 77–98; RESP 17–19; TEMP 36.4–37.4; O2SAT 96–99
[2021-05-12 04:27] LABS: Mean Corpuscular HGB Conc 32.6 g/dl (31.0-35.0); PLT CLUMP 1
[2021-05-12 04:29] LABS: Hematocrit 23.3 % (37.0-47.0); Hemoglobin 7.6 g/dl (12.0-16.0); Mean Corpuscular Hemoglobin 31.5 pg (27.0-33.0); Mean Corpuscular Volume 96.7 fL (80.0-98.0); Mean Platelet Volume 11.8 fL (9.4-12.3); NRBC Pct Auto 0.2 /100WBC (0.0-0.2); Platelet Count 104 X10*3/uL (160-400); Red Blood Count 2.41 X10*6/uL (4.20-5.50); Red Cell Distribution Width 13.3 % (11.0-16.0); White Blood Count 12.9 X10*3/uL (4.8-10.8)
[2021-05-12 04:52] LABS: Anion Gap 12 (12-20); Blood Urea Nitrogen 15 mg/dL (9-16); Calcium 8.1 mg/dL (8.4-10.2); Carbon Dioxide 27 mmol/L (22-29); Chloride 103 mmol/L (96-108); Creatinine Clr Calc Pharmacy 66.1; Estimated Glomerular Filt Rate > 60; Glucose Random 180 mg/dL (60-115); Potassium 4.1 mmol/L (3.3-5.1); Sodium 138 mmol/L (135-145)
[2021-05-12] MEDS: Insulin Glargine,Hum.rec.anlog 100 UNIT/ML 10 ML VIAL 14 UNIT SUBCUT (08:03)
[2021-05-12] MEDS: Insulin Lispro 100 UNIT/ML 3 ML VIAL SUBCUT ×3 (08:03→17:24)
[2021-05-12] MEDS: oxyCODONE HCl Immed Release 5 MG TABLET PO ×2 (08:05→14:41)
[2021-05-12] MEDS: Amitriptyline HCl 25 MG TABLET PO (08:06)
[2021-05-12] MEDS: Atorvastatin Calcium 80 MG TABLET PO (08:06)
[2021-05-12] MEDS: Gabapentin 400 MG CAPSULE 800 MG PO ×2 (08:06→20:56)
[2021-05-12] MEDS: Omeprazole 20 MG CAPSULE.DR PO (08:06)
[2021-05-12] MEDS: Docusate Sodium 100 MG CAPSULE PO (08:06)
[2021-05-12] MEDS: Metoprolol Succinate ER 25 MG TAB.ER.24H 75 MG PO ×2 (08:06→20:56)
[2021-05-12] MEDS: Cholecalciferol (Vitamin D3) 25 MCG TABLET 50 MCG PO (08:06)
--- NOTE | 2021-05-12 08:47 | PM.PNORT ---
Subjective Subjective Date of Service: 05/12/21 Interval history: POD 3 s/p left hip hemiarthropasty no overnight events minimal painin left hip Physical Exam Vital Signs: Vital Signs: Last Vital Signs Temp 97.7 F 05/12/21 07:52 Pulse 77 05/12/21 07:52 Resp 19 05/12/21 07:52 BP 115/56 L 05/12/21 07:52 Pulse Ox 97 05/12/21 07:52 BMI result Body Mass Index 29.2 Const: General: cooperative, healthy appearing and no acute distress Resp: Effort & Inspection: normal respiratory effort and able to speak in complete sentences Cardio: Rate: regular rate Peripheral pulses: Peripheral pulses 2+ throughout GI: Palpation (GI): Soft to palpation Skin: General skin exam: no rashes or lesions noted Extrem: Other: left hip bandage c/d/i no erythema , mild swelling sensation and pulses intact Procedures Date of Service Date of Service: 05/12/21 Progress Note: A&P Assessment and plan (1) Fracture of femoral neck, left: Status: Acute Assessment and Plan: Continue pain mgmnt continue lovenox x 6 weeks for dvt ppx Cont PT for LT hip camilla-posterior precautions Dispo - ok to dc from ortho standpoint Fall Risk Details Current Medications: Current Medications Acetaminophen (Acetaminophen 325 Mg Tablet) 650 mg PO Q6H PRN PRN Reason: Pain, Mild (Pain Scale 1-3) Amitriptyline HCl (Amitriptyline Hcl 25 Mg Tablet) 25 mg PO DAILY [facility] Last Admin: 05/12/21 08:06 Dose: 25 mg Documented by: Atorvastatin Calcium (Atorvastatin Calcium 80 Mg Tablet) 80 mg PO DAILY [facility] Last Admin: 05/12/21 08:06 Dose: 80 mg Documented by: Dextrose (Dextrose 50 % 25 Gm/50 Ml Vial) 25 gm IVPUSH Q15M PRN; Protocol PRN Reason: per Hypoglycemia Standing Ord. Docusate Sodium (Docusate Sodium 100 Mg Capsule) 100 mg PO DAILY [facility] Last Admin: 05/12/21 08:06 Dose: 100 mg Documented by: Enoxaparin Sodium (Enoxaparin Sodium 40 Mg/0.4 Ml Syringe) 40 mg SUBCUT Q24H [facility] Last Admin: 05/11/21 13:15 Dose: 40 mg Documented by: Gabapentin (Gabapentin 400 Mg Capsule) 800 mg PO BID [facility] Last Admin: 05/12/21 08:06 Dose: 800 mg Documented by: Glucose (Glucose Gel 15 Gm Gel..Gram.) 15 gm PO Q15M PRN; Protocol PRN Reason: per Hypoglycemia Standing Ord. Cefazolin Sodium/Dextrose (Ancef) 2 gm in 50 mls @ 100 mls/hr IV POSTOP [facility] Insulin Glargine (Insulin Glargine,Hum.Rec.Anlog 100 Unit/Ml 10 Ml Vial) 14 unit SUBCUT DAILY [facility] Last Admin: 05/12/21 08:03 Dose: 14 unit Documented by: Insulin Human Lispro (Insulin Lispro 100 Unit/Ml 3 Ml Vial) 0 unit SUBCUT QIDACHS [facility]; Protocol Last Admin: 05/12/21 08:03 Dose: 2 unit Documented by: Metoprolol Succinate (Metoprolol Succinate Er 25 Mg Tab.Er.24h) 75 mg PO BID@0830,2030 [facility]; Protocol Last Admin: 05/12/21 08:06 Dose: 75 mg Documented by: Omeprazole (Omeprazole 20 Mg Capsule.) 20 mg PO DAILY [facility] Last Admin: 05/12/21 08:06 Dose: 20 mg Documented by: Ondansetron HCl (Ondansetron Hcl 4 Mg/2 Ml Vial) 4 mg IVPUSH Q8H PRN PRN Reason: Nausea and Vomiting Last Admin: 05/09/21 09:34 Dose: 4 mg Documented by: Oxycodone HCl (Oxycodone Hcl Immed Release 5 Mg Tablet) 5 mg PO Q6H PRN PRN Reason: Pain, Moderate (Pain Scale 4-6 Last Admin: 05/12/21 08:05 Dose: 5 mg Documented by: Pharmacy Consult (Consult Rx Perform Med Rec) 1 each MISCELLANE ONCE PRN PRN Reason: Consult order Polyethylene Glycol (Polyethylene Glycol 3350 17 Gm Powd.Pack) 17 gm PO DAILY PRN PRN Reason: Constipation Last Admin: 05/11/21 10:32 Dose: 17 gm Documented by: Propafenone HCl (Propafenone Hcl 150 Mg Tablet) 150 mg PO Q8H [facility] Last Admin: 05/12/21 08:06 Dose: 150 mg Documented by: Sodium Chloride (0.9 % Sodium Chloride Flush 3 Ml Syringe) 3 ml IVFLUSH QSHIFT [facility] Last Admin: 05/12/21 07:54 Dose: Not Given Documented by: Vitamin D (Cholecalciferol (Vitamin D3) 25 Mcg Tablet) 50 mcg PO DAILY [facility] Last Admin: 05/12/21 08:06 Dose: 50 mcg Documented by: Time Spent With Patient Time: Total time spent is greater than 50% in coordination of care (as documented) at patient's floor/unit and/or counseling patient: Time with patient: less than 15 minutes Quality Stroke Does the patient have a stroke diagnosis?: No VTE Prior VTE?: No VTE Risk Level:: Medical - moderate - high VTE Device Contraindication: N/A - Device Ordered VTE Drug Contraindication: Treatment Not Indicated
[2021-05-12 09:02] LABS: Glucose, Whole Blood 171 mg/dL (60-115)
--- NOTE | 2021-05-12 10:20 | HO.PM.IMPN ---
Subjective Subjective Date of Service: 05/12/21 Review of Systems Follow up hemiarthroplasty Lethargic today, very pale Denies pain All other systems are reviewed and are negative Physical Exam Vital Signs: Vital Signs: Last Vital Signs Temp 97.7 F 05/12/21 07:52 Pulse 77 05/12/21 07:52 Resp 19 05/12/21 07:52 BP 115/56 L 05/12/21 07:52 Pulse Ox 97 05/12/21 07:52 BMI result Body Mass Index 29.2 Appearing in no acute distress lung sounds are clear to auscultation heart regular rate rhythm, clear S1, S2 positive bowel sounds, abdomen is soft, nontender neuro patient is alert x3, no focal deficits Left sided surgical incision dressing intact, wound not visualized Objective Data Active Medications Acetaminophen (Acetaminophen 325 Mg Tablet) 650 mg PO Q6H PRN PRN Reason: Pain, Mild (Pain Scale 1-3) Amitriptyline HCl (Amitriptyline Hcl 25 Mg Tablet) 25 mg PO DAILY [facility] Last Admin: 05/12/21 08:06 Dose: 25 mg Documented by: GIANNA Atorvastatin Calcium (Atorvastatin Calcium 80 Mg Tablet) 80 mg PO DAILY [facility] Last Admin: 05/12/21 08:06 Dose: 80 mg Documented by: GIANNA Dextrose (Dextrose 50 % 25 Gm/50 Ml Vial) 25 gm IVPUSH Q15M PRN; Protocol PRN Reason: per Hypoglycemia Standing Ord. Docusate Sodium (Docusate Sodium 100 Mg Capsule) 100 mg PO DAILY [facility] Last Admin: 05/12/21 08:06 Dose: 100 mg Documented by: GIANNA Enoxaparin Sodium (Enoxaparin Sodium 40 Mg/0.4 Ml Syringe) 40 mg SUBCUT Q24H [facility] Last Admin: 05/11/21 13:15 Dose: 40 mg Documented by: ALETHEA Gabapentin (Gabapentin 400 Mg Capsule) 800 mg PO BID [facility] Last Admin: 05/12/21 08:06 Dose: 800 mg Documented by: GIANNA Glucose (Glucose Gel 15 Gm Gel..Gram.) 15 gm PO Q15M PRN; Protocol PRN Reason: per Hypoglycemia Standing Ord. Cefazolin Sodium/Dextrose (Ancef) 2 gm in 50 mls @ 100 mls/hr IV POSTOP [facility] Insulin Glargine (Insulin Glargine,Hum.Rec.Anlog 100 Unit/Ml 10 Ml Vial) 14 unit SUBCUT DAILY [facility] Last Admin: 05/12/21 08:03 Dose: 14 unit Documented by: GIANNA Insulin Human Lispro (Insulin Lispro 100 Unit/Ml 3 Ml Vial) 0 unit SUBCUT QIDACHS [facility]; Protocol Last Admin: 05/12/21 08:03 Dose: 2 unit Documented by: GIANNA Metoprolol Succinate (Metoprolol Succinate Er 25 Mg Tab.Er.24h) 75 mg PO BID@0830,2030 [facility]; Protocol Last Admin: 05/12/21 08:06 Dose: 75 mg Documented by: GIANNA Omeprazole (Omeprazole 20 Mg Capsule.Dr) 20 mg PO DAILY [facility] Last Admin: 05/12/21 08:06 Dose: 20 mg Documented by: GIANNA Ondansetron HCl (Ondansetron Hcl 4 Mg/2 Ml Vial) 4 mg IVPUSH Q8H PRN PRN Reason: Nausea and Vomiting Last Admin: 05/09/21 09:34 Dose: 4 mg Documented by: RAJI Oxycodone HCl (Oxycodone Hcl Immed Release 5 Mg Tablet) 5 mg PO Q6H PRN PRN Reason: Pain, Moderate (Pain Scale 4-6 Last Admin: 05/12/21 08:05 Dose: 5 mg Documented by: GIANNA Pharmacy Consult (Consult Rx Perform Med Rec) 1 each MISCELLANE ONCE PRN PRN Reason: Consult order Polyethylene Glycol (Polyethylene Glycol 3350 17 Gm Powd.Pack) 17 gm PO DAILY PRN PRN Reason: Constipation Last Admin: 05/11/21 10:32 Dose: 17 gm Documented by: ALETHEA Propafenone HCl (Propafenone Hcl 150 Mg Tablet) 150 mg PO Q8H [facility] Last Admin: 05/12/21 08:06 Dose: 150 mg Documented by: GIANNA Sodium Chloride (0.9 % Sodium Chloride Flush 3 Ml Syringe) 3 ml IVFLUSH QSHIFT [facility] Last Admin: 05/12/21 07:54 Dose: Not Given Documented by: GIANNA Non-Admin Reason: IV Running Vitamin D (Cholecalciferol (Vitamin D3) 25 Mcg Tablet) 50 mcg PO DAILY [facility] Last Admin: 05/12/21 08:06 Dose: 50 mcg Documented by: GIANNA Labs CBC & Chem 7: 05/12/21 04:13 05/12/21 04:13 Labs: Laboratory Results - last 24 hr 05/11/21 05/11/21 05/11/21 11:06 14:41 16:25 MCV MCH MCHC RDW Plt Count MPV Immature Gran % (Auto) Neut % (Auto) Lymph % (Auto) Boyd % (Auto) Eos % (Auto) Baso % (Auto) Lymph # (Auto) Boyd # (Auto) Eos # (Auto) Baso # (Auto) Abs Immat Gran (auto) Absolute Neuts (auto) Absolute Nucleated RBC Nucleated RBC % (auto) Anion Gap Estim Creat Clear Calc Estimated GFR POC Glucose 272 H 184 H 189 H Random Glucose Calcium Magnesium 05/11/21 05/11/21 05/11/21 16:38 16:38 20:29 MCV 95.2 MCH 32.2 MCHC 33.9 RDW 13.4 Plt Count 120 L MPV 12.3 Immature Gran % (Auto) 0.5 H Neut % (Auto) 77.1 H Lymph % (Auto) 12.1 L Boyd % (Auto) 10.2 Eos % (Auto) 0.0 Baso % (Auto) 0.1 Lymph # (Auto) 1.8 Boyd # (Auto) 1.5 H Eos # (Auto) 0.0 Baso # (Auto) 0.0 Abs Immat Gran (auto) 0.07 H Absolute Neuts (auto) 11.1 H Absolute Nucleated RBC 0.000 Nucleated RBC % (auto) 0.0 Anion Gap 11 L Estim Creat Clear Calc 66.1 Estimated GFR > 60 POC Glucose 216 H Random Glucose 224 H Calcium 8.4 Magnesium 2.0 05/12/21 05/12/21 05/12/21 04:13 04:13 07:50 MCV 96.7 MCH 31.5 MCHC 32.6 RDW 13.3 Plt Count 104 L MPV 11.8 Immature Gran % (Auto) Neut % (Auto) Lymph % (Auto) Boyd % (Auto) Eos % (Auto) Baso % (Auto) Lymph # (Auto) Boyd # (Auto) Eos # (Auto) Baso # (Auto) Abs Immat Gran (auto) Absolute Neuts (auto) Absolute Nucleated RBC 0.020 H Nucleated RBC % (auto) 0.2 Anion Gap 12 Estim Creat Clear Calc 66.1 Estimated GFR > 60 POC Glucose 171 H Random Glucose 180 H Calcium 8.1 L Magnesium Assessment and Plan (1) Type 2 diabetes mellitus with hyperglycemia: Status: Acute (2) Hypercholesterolemia: Status: Acute (3) GERD (gastroesophageal reflux disease): Status: Acute (4) HTN (hypertension): Status: Acute (5) Anemia: Status: Acute (6) PVC (premature ventricular contraction): Status: Acute (7) SVT (supraventricular tachycardia): Status: Acute Assessment and Plan: This is an 85 year old Palestinian speaking female with a history of DM, dementia, HTN, HLD, SVT who presented to the ED after a mechanical fall found to have left femoral neck fracture Left femoral neck fracture s/p left hemiarthroplasty 05/10 seen by cardiology prior to surgery. Intermediate cardiac risk minimize narcotics for pain control if able due to sedation with morphine Acute blood loss anemia secondary to surgery HH down to7.6/23.3 today tx one unit PRBC follow H/H closely Frequent PVCs/SVT 2 episodes of SVT on 05/11 broke after adenosine Metoprolol increased Diabetes uncontrolled, HbA1c from 03/06 9.7 trulicity NF continue Lantus SSI, POCs HLD continue statin Neuropathy continue gabapentin gerd continue prilosec mild transaminitis chronic DISPO PT rec STR dvt ppx - lovenox started 05/10 code status - full code HCP - son Aristides Blackmon Attending Dr. Le Quality Stroke Does the patient have a stroke diagnosis?: No VTE Prior VTE?: No VTE Risk Level:: Medical - moderate - high VTE Device Contraindication: N/A - Device Ordered VTE Drug Contraindication: Treatment Not Indicated
[2021-05-12 11:22] LABS: OBS Int Ctl Valid YES; OBS1 NEGATIVE (NEGATIVE)
[2021-05-12 11:25] LABS: Glucose, Whole Blood 322 mg/dL (60-115)
--- NOTE | 2021-05-12 11:38 | MHC.CM.PN ---
Addendum entered by Bree Ortiz 05/12/21 12:14: [facility] IS OFFERING A BED FOR TOMORROW. HCP TO BE UPLOADED Original Note: WITH HELP OF IMMUNOPATHOLOGIST, SON STATES THAT HE HAS HCP COPIES AT HOME. HE IS AWARE THAT FACILITIES NEED THIS COPY IN ORDER TO OFFER A BED. SON STATES THAT HE WILL BRING ONE IN AND CHOOSES [facility], NOW PLACED. PATIENT RECEIVING BLOOD TODAY LIKELY DC LATER TODAY VERSUS TOMORROW. RN AND UNIT AWARE.
--- NOTE | 2021-05-12 11:55 | P.PNCA_ITS ---
Subjective Subjective Date of Service: 05/12/21 Interval history: delirious, has known dementia Physical Exam Vital Signs: Last Vital Signs Temp 97.7 F 05/12/21 07:52 Pulse 77 05/12/21 07:52 Resp 19 05/12/21 07:52 BP 115/56 L 05/12/21 07:52 Pulse Ox 97 05/12/21 07:52 BMI result Body Mass Index 29.2 GENERAL APPEARANCE: Confused. In no distress. SKIN: no suspicious lesions, warm and dry. HEART: no murmurs, regular rate and rhythm. LUNGS: clear to auscultation bilaterally. ABDOMEN: soft, nontender. EXTREMITIES: no edema. PERIPHERAL PULSES: equal. NEUROLOGIC: Confused. Objective Labs and Meds Result diagrams: 05/12/21 04:13 05/12/21 04:13 Lab results: Laboratory Results - last 24 hr 05/11/21 05/11/21 05/11/21 14:41 16:25 16:38 WBC 14.4 H RBC 2.70 L Hgb 8.7 L Hct 25.7 L MCV 95.2 MCH 32.2 MCHC 33.9 RDW 13.4 Plt Count 120 L MPV 12.3 Immature Gran % (Auto) 0.5 H Neut % (Auto) 77.1 H Lymph % (Auto) 12.1 L Gila % (Auto) 10.2 Eos % (Auto) 0.0 Baso % (Auto) 0.1 Lymph # (Auto) 1.8 Gila # (Auto) 1.5 H Eos # (Auto) 0.0 Baso # (Auto) 0.0 Abs Immat Gran (auto) 0.07 H Absolute Neuts (auto) 11.1 H Absolute Nucleated RBC 0.000 Nucleated RBC % (auto) 0.0 Sodium Potassium Chloride Carbon Dioxide Anion Gap BUN Creatinine Estim Creat Clear Calc Estimated GFR POC Glucose 184 H 189 H Random Glucose Calcium Magnesium Stool Occult Blood Blood Type Antibody Screen Crossmatch 05/11/21 05/11/21 05/12/21 16:38 20:29 04:13 WBC 12.9 H RBC 2.41 L Hgb 7.6 L Hct 23.3 L MCV 96.7 MCH 31.5 MCHC 32.6 RDW 13.3 Plt Count 104 L MPV 11.8 Immature Gran % (Auto) Neut % (Auto) Lymph % (Auto) Gila % (Auto) Eos % (Auto) Baso % (Auto) Lymph # (Auto) Gila # (Auto) Eos # (Auto) Baso # (Auto) Abs Immat Gran (auto) Absolute Neuts (auto) Absolute Nucleated RBC 0.020 H Nucleated RBC % (auto) 0.2 Sodium 138 Potassium 3.8 Chloride 102 Carbon Dioxide 29 Anion Gap 11 L BUN 13 Creatinine 0.59 Estim Creat Clear Calc 66.1 Estimated GFR > 60 POC Glucose 216 H Random Glucose 224 H Calcium 8.4 Magnesium 2.0 Stool Occult Blood Blood Type Antibody Screen Crossmatch 05/12/21 05/12/21 05/12/21 04:13 07:50 09:30 WBC RBC Hgb Hct MCV MCH MCHC RDW Plt Count MPV Immature Gran % (Auto) Neut % (Auto) Lymph % (Auto) Gila % (Auto) Eos % (Auto) Baso % (Auto) Lymph # (Auto) Gila # (Auto) Eos # (Auto) Baso # (Auto) Abs Immat Gran (auto) Absolute Neuts (auto) Absolute Nucleated RBC Nucleated RBC % (auto) Sodium 138 Potassium 4.1 Chloride 103 Carbon Dioxide 27 Anion Gap 12 BUN 15 Creatinine 0.59 Estim Creat Clear Calc 66.1 Estimated GFR > 60 POC Glucose 171 H Random Glucose 180 H Calcium 8.1 L Magnesium Stool Occult Blood NEGATIVE Blood Type Antibody Screen Crossmatch 05/12/21 05/12/21 09:33 11:16 WBC RBC Hgb Hct MCV MCH MCHC RDW Plt Count MPV Immature Gran % (Auto) Neut % (Auto) Lymph % (Auto) Gila % (Auto) Eos % (Auto) Baso % (Auto) Lymph # (Auto) Gila # (Auto) Eos # (Auto) Baso # (Auto) Abs Immat Gran (auto) Absolute Neuts (auto) Absolute Nucleated RBC Nucleated RBC % (auto) Sodium Potassium Chloride Carbon Dioxide Anion Gap BUN Creatinine Estim Creat Clear Calc Estimated GFR POC Glucose 322 H Random Glucose Calcium Magnesium Stool Occult Blood Blood Type A Positive Antibody Screen NEGATIVE Crossmatch See Detail Progress Note: A&P Assessment and plan (1) SVT (supraventricular tachycardia): Status: Acute Assessment and Plan: Pleasant 85-year-old female who had supraventricular tachycardia as today. She was given adenosine. Has been stable since yesterday. I think continue beta-nighat. Stop the propafenone. Pain control. Stop the amitriptyline. Monitor electrolytes closely. Please message if you have any questions. Thank you for allowing me to participate in the care of your patient. Please feel free to contact me if you have any questions. Fall Risk Details Current Medications: Current Medications Acetaminophen (Acetaminophen 325 Mg Tablet) 650 mg PO Q6H REPLACED BY [facility] Amitriptyline HCl (Amitriptyline Hcl 25 Mg Tablet) 25 mg PO DAILY [facility] Last Admin: 05/12/21 08:06 Dose: 25 mg Documented by: Atorvastatin Calcium (Atorvastatin Calcium 80 Mg Tablet) 80 mg PO DAILY [facility] Last Admin: 05/12/21 08:06 Dose: 80 mg Documented by: Dextrose (Dextrose 50 % 25 Gm/50 Ml Vial) 25 gm IVPUSH Q15M PRN; Protocol PRN Reason: per Hypoglycemia Standing Ord. Docusate Sodium (Docusate Sodium 100 Mg Capsule) 100 mg PO DAILY [facility] Last Admin: 05/12/21 08:06 Dose: 100 mg Documented by: Enoxaparin Sodium (Enoxaparin Sodium 40 Mg/0.4 Ml Syringe) 40 mg SUBCUT Q24H REPLACED BY [facility] Last Admin: 05/11/21 13:15 Dose: 40 mg Documented by: Gabapentin (Gabapentin 400 Mg Capsule) 800 mg PO BID REPLACED BY [facility] Last Admin: 05/12/21 08:06 Dose: 800 mg Documented by: Glucose (Glucose Gel 15 Gm Gel..Gram.) 15 gm PO Q15M PRN; Protocol PRN Reason: per Hypoglycemia Standing Ord. Cefazolin Sodium/Dextrose (Ancef) 2 gm in 50 mls @ 100 mls/hr IV POSTOP REPLACED BY [facility] Insulin Glargine (Insulin Glargine,Hum.Rec.Anlog 100 Unit/Ml 10 Ml Vial) 14 unit SUBCUT DAILY [facility] Last Admin: 05/12/21 08:03 Dose: 14 unit Documented by: Insulin Human Lispro (Insulin Lispro 100 Unit/Ml 3 Ml Vial) 0 unit SUBCUT QIDACHS REPLACED BY [facility]; Protocol Last Admin: 05/12/21 08:03 Dose: 2 unit Documented by: Metoprolol Succinate (Metoprolol Succinate Er 25 Mg Tab.Er.24h) 75 mg PO BID@0830,2030 REPLACED BY [facility]; Protocol Last Admin: 05/12/21 08:06 Dose: 75 mg Documented by: Omeprazole (Omeprazole 20 Mg Capsule.) 20 mg PO DAILY [facility]PL[facility] Last Admin: 05/12/21 08:06 Dose: 20 mg Documented by: Ondansetron HCl (Ondansetron Hcl 4 Mg/2 Ml Vial) 4 mg IVPUSH Q8H PRN PRN Reason: Nausea and Vomiting Last Admin: 05/09/21 09:34 Dose: 4 mg Documented by: Oxycodone HCl (Oxycodone Hcl Immed Release 5 Mg Tablet) 5 mg PO Q8H PRN PRN Reason: Pain, Moderate (Pain Scale 4-6 Pharmacy Consult (Consult Rx Perform Med Rec) 1 each MISCELLANE ONCE PRN PRN Reason: Consult order Polyethylene Glycol (Polyethylene Glycol 3350 17 Gm Powd.Pack) 17 gm PO DAILY PRN PRN Reason: Constipation Last Admin: 05/11/21 10:32 Dose: 17 gm Documented by: Propafenone HCl (Propafenone Hcl 150 Mg Tablet) 150 mg PO Q8H REPLACED BY [facility] Last Admin: 05/12/21 08:06 Dose: 150 mg Documented by: Sodium Chloride (0.9 % Sodium Chloride Flush 3 Ml Syringe) 3 ml IVFLUSH QSHIFT REPLACED BY [facility] Last Admin: 05/12/21 07:54 Dose: Not Given Documented by: Vitamin D (Cholecalciferol (Vitamin D3) 25 Mcg Tablet) 50 mcg PO DAILY REPLACED BY [facility] Last Admin: 05/12/21 08:06 Dose: 50 mcg Documented by: Time Spent With Patient Time: Total time spent is greater than 50% in coordination of care (as documented) at patient's floor/unit and/or counseling patient: Time with patient: 15 - 24 minutes Progress Note: Quality Stroke Does the patient have a stroke diagnosis?: No Procedures Date of Service Date of Service: 05/12/21
[2021-05-12] MEDS: Acetaminophen 325 MG TABLET 650 MG PO ×2 (12:40→17:31)
[2021-05-12] MEDS: Enoxaparin Sodium 40 MG/0.4 ML SYRINGE SUBCUT (13:45)
--- NOTE | 2021-05-12 14:20 | P.EN_ITS ---
Event Note Date of Service: 05/12/21 Event Note: Psychiatry consulted regarding amitriptyline medication and SVT. Patient receiving amitriptyline 25 mg at night. Recommend d/c medication at this time. Taper schedule not needed at this time due to cardiac risks and low- dose. This recommendation was shared with provider April Ingram, via secure messaging system. Thank you.
--- NOTE | 2021-05-12 14:38 | MHC.CLN ---
NUTRITION PER ADMISSION ASSESSMENT, UNSURE OF WEIGHT LOSS. REVIEW OF WEIGHT HX SHOWS WEIGHT GAIN X 9 MONTHS, +8.2%.
[2021-05-12 14:43] LABS: Hematocrit 30.7 % (37.0-47.0)
[2021-05-12 16:13] LABS: Glucose, Whole Blood 169 mg/dL (60-115)
[2021-05-12 20:31] LABS: Glucose, Whole Blood 106 mg/dL (60-115)
[2021-05-13] VITALS (7 sets, daily range): BP systolic 97–109; BP diastolic 50–66; PULSE 61–86; RESP 17–18; TEMP 36.1–36.9; O2SAT 96–100
[2021-05-13] MEDS: Acetaminophen 325 MG TABLET 650 MG PO ×5 (00:16→22:10)
[2021-05-13] MEDS: 0.9 % Sodium Chloride Flush 3 ML SYRINGE IVFLUSH ×4 (00:20→22:10)
[2021-05-13 06:14] LABS: Hematocrit 25.6 % (37.0-47.0); Hemoglobin 8.6 g/dl (12.0-16.0); Mean Corpuscular HGB Conc 33.6 g/dl (31.0-35.0); Mean Corpuscular Volume 95.2 fL (80.0-98.0); NRBC Pct Auto 0.7 /100WBC (0.0-0.2); Platelet Count 151 X10*3/uL (160-400); Red Blood Count 2.69 X10*6/uL (4.20-5.50); Red Cell Distribution Width 13.7 % (11.0-16.0); White Blood Count 16.2 X10*3/uL (4.8-10.8)
[2021-05-13 06:29] LABS: Anion Gap 10 (12-20); Blood Urea Nitrogen 17 mg/dL (9-16); Calcium 8.1 mg/dL (8.4-10.2); Carbon Dioxide 31 mmol/L (22-29); Chloride 104 mmol/L (96-108); Creatinine Clr Calc Pharmacy 66.1; Estimated Glomerular Filt Rate > 60; Glucose Random 173 mg/dL (60-115); Potassium 4.2 mmol/L (3.3-5.1); Sodium 141 mmol/L (135-145)
[2021-05-13 07:30] LABS: Glucose, Whole Blood 163 mg/dL (60-115)
[2021-05-13] MEDS: Gabapentin 400 MG CAPSULE 800 MG PO ×2 (08:00→22:10)
[2021-05-13] MEDS: Insulin Glargine,Hum.rec.anlog 100 UNIT/ML 10 ML VIAL 14 UNIT SUBCUT (08:03)
[2021-05-13] MEDS: Insulin Lispro 100 UNIT/ML 3 ML VIAL SUBCUT ×3 (08:04→16:51)
[2021-05-13] MEDS: Omeprazole 20 MG CAPSULE.DR PO (08:04)
[2021-05-13] MEDS: Docusate Sodium 100 MG CAPSULE PO (08:06)
[2021-05-13] MEDS: Cholecalciferol (Vitamin D3) 25 MCG TABLET 50 MCG PO (08:06)
[2021-05-13] MEDS: Atorvastatin Calcium 80 MG TABLET PO (08:07)
[2021-05-13 08:10] LABS: Iron 14 mcg/dL (30-160); Percent Iron Saturation 9 % (15-50); Total Iron Binding Capacity 150 mcg/dL (228-428); Unsaturated Iron Binding 136 ug/dL
[2021-05-13] MEDS: Metoprolol Succinate ER 25 MG TAB.ER.24H 75 MG PO ×2 (10:15→22:10)
--- NOTE | 2021-05-13 10:47 | P.PNIM_ITS ---
Subjective Subjective Date of Service: 05/13/21 Review of Systems Follow up hemiarthroplasty Lethargic today, very pale Denies pain All other systems are reviewed and are negative Physical Exam Verdana 4l Vital Signs: Verdana 4d Verdana 4d Vital Signs: Verdana 4d Verdana 4Bd Last Vital Signs Verdana 4d Electrician Crane Maintenance New 4d Electrician Crane Maintenance New 4d Temp 97.0 F 05/13/21 07:16 Electrician Crane Maintenance New 4d Pulse 61 05/13/21 09:16 Electrician Crane Maintenance NewNew 4d Resp 18 05/13/21 07:16 BP 101/51 L 05/13/21 09:16 Pulse Ox 98 05/13/21 09:16 BMI result Body Mass Index 29.2 Appearing in no acute distress lung sounds are clear to auscultation heart regular rate rhythm, clear S1, S2 positive bowel sounds, abdomen is soft, nontender neuro patient is alert, confused, no focal deficits Objective Data Active Medications Acetaminophen (Acetaminophen 325 Mg Tablet) 650 mg PO Q6H [facility] Last Admin: 05/13/21 10:16 Dose: 650 mg Documented by: WHITNEY Atorvastatin Calcium (Atorvastatin Calcium 80 Mg Tablet) 80 mg PO DAILY [facility] Last Admin: 05/13/21 08:07 Dose: 80 mg Documented by: WHITNEY Dextrose (Dextrose 50 % 25 Gm/50 Ml Vial) 25 gm IVPUSH Q15M PRN; Protocol PRN Reason: per Hypoglycemia Standing Ord. Docusate Sodium (Docusate Sodium 100 Mg Capsule) 100 mg PO DAILY [facility] Last Admin: 05/13/21 08:06 Dose: 100 mg Documented by: WHITNEY Enoxaparin Sodium (Enoxaparin Sodium 40 Mg/0.4 Ml Syringe) 40 mg SUBCUT Q24H [facility] Last Admin: 05/12/21 13:45 Dose: 40 mg Documented by: LENNY Gabapentin (Gabapentin 400 Mg Capsule) 800 mg PO BID [facility] Last Admin: 05/13/21 08:00 Dose: 800 mg Documented by: WHITNEY Glucose (Glucose Gel 15 Gm Gel..Gram.) 15 gm PO Q15M PRN; Protocol PRN Reason: per Hypoglycemia Standing Ord. Cefazolin Sodium/Dextrose (Ancef) 2 gm in 50 mls @ 100 mls/hr IV POSTOP [facility] Insulin Glargine (Insulin Glargine,Hum.Rec.Anlog 100 Unit/Ml 10 Ml Vial) 14 unit SUBCUT DAILY [facility] Last Admin: 05/13/21 08:03 Dose: 14 unit Documented by: WHITNEY Insulin Human Lispro (Insulin Lispro 100 Unit/Ml 3 Ml Vial) 0 unit SUBCUT QIDACHS [facility]; Protocol Last Admin: 05/13/21 08:04 Dose: 2 unit Documented by: WHITNEY Metoprolol Succinate (Metoprolol Succinate Er 25 Mg Tab.Er.24h) 75 mg PO BID@0830,2030 [facility]; Protocol Last Admin: 05/13/21 10:15 Dose: 75 mg Documented by: WHITNEY Omeprazole (Omeprazole 20 Mg Capsule.Dr) 20 mg PO DAILY [facility] Last Admin: 05/13/21 08:04 Dose: 20 mg Documented by: WHITNEY Ondansetron HCl (Ondansetron Hcl 4 Mg/2 Ml Vial) 4 mg IVPUSH Q8H PRN PRN Reason: Nausea and Vomiting Last Admin: 05/09/21 09:34 Dose: 4 mg Documented by: RAJI Oxycodone HCl (Oxycodone Hcl Immed Release 5 Mg Tablet) 5 mg PO Q8H PRN PRN Reason: Pain, Moderate (Pain Scale 4-6 Last Admin: 05/12/21 14:41 Dose: 5 mg Documented by: GIANNA Pharmacy Consult (Consult Rx Perform Med Rec) 1 each MISCELLANE ONCE PRN PRN Reason: Consult order Polyethylene Glycol (Polyethylene Glycol 3350 17 Gm Powd.Pack) 17 gm PO DAILY PRN PRN Reason: Constipation Last Admin: 05/11/21 10:32 Dose: 17 gm Documented by: ALETHEA Sodium Chloride (0.9 % Sodium Chloride Flush 3 Ml Syringe) [facility] Last Admin: 05/13/21 10:23 Dose: 3 ml Documented by: WHITNEY Vitamin D (Cholecalciferol (Vitamin D3) 25 Mcg Tablet) 50 mcg PO DAILY [facility] Last Admin: 05/13/21 08:06 Dose: 50 mcg Documented by: WHITNEY Labs CBC & Chem 7: 05/13/21 05:51 05/13/21 05:51 Labs: Laboratory Results - last 24 hr 05/12/21 05/12/21 05/12/21 09:30 09:33 11:16 MCV MCH MCHC RDW Plt Count MPV Absolute Nucleated RBC Nucleated RBC % (auto) Anion Gap Estim Creat Clear Calc Estimated GFR POC Glucose 322 H Random Glucose Calcium Iron TIBC % Saturation Unsat Iron Binding Stool Occult Blood NEGATIVE Blood Type A Positive Antibody Screen NEGATIVE Crossmatch See Detail 05/12/21 05/12/21 05/13/21 16:07 20:26 05:51 MCV 95.2 MCH 32.0 MCHC 33.6 RDW 13.7 Plt Count 151 L D MPV 12.0 Absolute Nucleated RBC 0.110 H Nucleated RBC % (auto) 0.7 H Anion Gap Estim Creat Clear Calc Estimated GFR POC Glucose 169 H 106 Random Glucose Calcium Iron TIBC % Saturation Unsat Iron Binding Stool Occult Blood Blood Type Antibody Screen Crossmatch 05/13/21 05/13/21 05:51 07:14 MCV MCH MCHC RDW Plt Count MPV Absolute Nucleated RBC Nucleated RBC % (auto) Anion Gap 10 L Estim Creat Clear Calc 66.1 Estimated GFR > 60 POC Glucose 163 H Random Glucose 173 H Calcium 8.1 L Iron 14 L TIBC 150 L % Saturation 9 L Unsat Iron Binding 136 Stool Occult Blood Blood Type Antibody Screen Crossmatch Assessment and Plan (1) Leukocytosis (leucocytosis): Status: Acute (2) Dementia: Status: Acute (3) Type 2 diabetes mellitus with hyperglycemia: Status: Acute (4) HTN (hypertension): Status: Acute (5) SVT (supraventricular tachycardia): Status: Acute (6) Anemia: Status: Acute Assessment and Plan: This is an 85 year old Guyanese speaking female with a history of DM, dementia, HTN, HLD, SVT who presented to the ED after a mechanical fall found to have left femoral neck fracture Leukocytosis WBC trending up, no fever CXR neg for consolidation ua pending monitor overnight Left femoral neck fracture s/p left hemiarthroplasty 05/10 seen by cardiology prior to surgery. Intermediate cardiac risk minimize narcotics for pain control if able due to sedation with morphine Acute blood loss anemia secondary to surgery/iron def anemia tx one unit PRBC follow H/H closely Add iron supplement Frequent PVCs/SVT 2 episodes of SVT on 05/11 broke after adenosine Metoprolol increased Seen by cardiology with rec to stop rhythmol (started inpatient) and amitriptyline(can cause arrythmia) Diabetes uncontrolled, HbA1c from 03/06 9.7 trulicity NF continue Lantus SSI, POCs HLD continue statin Neuropathy continue gabapentin gerd continue prilosec mild transaminitis chronic Dementia unspecified DISPO PT rec STR when medically stable dvt ppx - lovenox started 05/10 code status - full code HCP - son Aristideskyle Blackmon Attending Dr. Yoder Quality Quality Stroke Does the patient have a stroke diagnosis?: No VTE Prior VTE?: No VTE Risk Level:: Medical - moderate - high VTE Device Contraindication: N/A - Device Ordered VTE Drug Contraindication: Treatment Not Indicated
--- NOTE | 2021-05-13 11:28 | P.PNCA_ITS ---
Subjective Subjective Date of Service: 05/13/21 <JUNIE Allen - Last Filed: 05/13/21 12:02> 05/14/21 <Joel Robert MD - Last Filed: 05/14/21 18:31> Principal diagnosis: SVT, fall, Fx left femoral neck, s/p ORIF left hip <JUNIE Allen - Last Filed: 05/13/21 12:02> Interval history: Cardiology follow up for SVT. Seen at 0915. Today she is observed laying in bed with HOB elevated, no acute distress. No answering all questions, even with Belarusian used. Unclear full orientation. Notes do indicate hx dementia. Does state No when asked if she has pain. Breathing unlabored. <JUNIE Allen - Last Filed: 05/13/21 12:02> Review of Systems Review of Systems as above <JUNIE Allen - Last Filed: 05/13/21 12:02> Yes Unobtainable due to mental status <JUNIE Allen - Last Filed: 05/13/21 12:02> Physical Exam Vital Signs: Last Vital Signs Temp 97.9 F 05/13/21 11:21 Pulse 85 05/13/21 11:21 Resp 17 05/13/21 11:21 BP 104/54 L 05/13/21 11:21 Pulse Ox 98 05/13/21 11:21 BMI result Body Mass Index 29.2 <JUNIE Allen - Last Filed: 05/13/21 12:02> Const General: cooperative, no acute distress, alert and awake <JUNIE Allen - Last Filed: 05/13/21 12:02> Neck Neck: Yes normal visual inspection and Yes no JVD <JUNIE Allen - Last Filed: 05/13/21 12:02> Resp Effort & Inspection: normal respiratory effort and not labored <JUNIE Allen - Last Filed: 05/13/21 12:02> Auscultation: clear to auscultation bilaterally, rales (noted in each lower lobe), no rhonchi and no wheezes <JUNIE Allen - Last Filed: 05/13/21 12:02> Cardio Palpation: normal PMI <JUNIE Allen Last Filed: 05/13/21 12:02> Rate: regular rate <JUNIE Allen Last Filed: 05/13/21 12:02> Rhythm: regular rhythm <JUNIE Allen Last Filed: 05/13/21 12:02> Heart sounds: S1 normal heart sound present and S2 normal heart sound present <JUNIE Allen Last Filed: 05/13/21 12:02> Peripheral pulses: Peripheral pulses 2+ throughout <JUNIE Allen Last Filed: 05/13/21 12:02> GI Inspection: Yes normal to inspection <JUNIE Allen Last Filed: 05/13/21 12:02> Skin Other: pale skin color <JUNIE Allen Last Filed: 05/13/21 12:02> Extrem General: Yes normal to inspection and No edema <JUNIE Allen Last Filed: 05/13/21 12:02> Objective Labs and Meds Result diagrams: : 05/14/21 05:54 05/14/21 05:54 <JUNIE Allen Last Filed: 05/13/21 12:02> Lab results: Laboratory Results - last 24 hr 05/12/21 05/12/21 05/12/21 09:33 14:37 16:07 WBC RBC Hgb 10.0 L D Hct 30.7 L D MCV MCH MCHC RDW Plt Count MPV Absolute Nucleated RBC Nucleated RBC % (auto) Sodium Potassium Chloride Carbon Dioxide Anion Gap BUN Creatinine Estim Creat Clear Calc Estimated GFR POC Glucose 169 H Random Glucose Calcium Iron TIBC % Saturation Unsat Iron Binding Blood Type A Positive Antibody Screen NEGATIVE Crossmatch See Detail 05/12/21 05/13/21 05/13/21 20:26 05:51 05:51 WBC 16.2 H RBC 2.69 L Hgb 8.6 L Hct 25.6 L MCV 95.2 MCH 32.0 MCHC 33.6 RDW 13.7 Plt Count 151 L D MPV 12.0 Absolute Nucleated RBC 0.110 H Nucleated RBC % (auto) 0.7 H Sodium 141 Potassium 4.2 Chloride 104 Carbon Dioxide 31 H Anion Gap 10 L BUN 17 H Creatinine 0.59 Estim Creat Clear Calc 66.1 Estimated GFR > 60 POC Glucose 106 Random Glucose 173 H Calcium 8.1 L Iron 14 L TIBC 150 L % Saturation 9 L Unsat Iron Binding 136 Blood Type Antibody Screen Crossmatch 05/13/21 07:14 WBC RBC Hgb Hct MCV MCH MCHC RDW Plt Count MPV Absolute Nucleated RBC Nucleated RBC % (auto) Sodium Potassium Chloride Carbon Dioxide Anion Gap BUN Creatinine Estim Creat Clear Calc Estimated GFR POC Glucose 163 H Random Glucose Calcium Iron TIBC % Saturation Unsat Iron Binding Blood Type Antibody Screen Crossmatch <JUNIE Allen - Last Filed: 05/13/21 12:02> Imaging Radiologist's impression: Impressions Chest X-Ray 05/13/21 08:42 IMPRESSION: Bilateral increased parahilar vascular markings question mild congestion. No consolidation seen. <JUNIE Allen - Last Filed: 05/13/21 12:02> Progress Note: A&P Assessment and plan (1) SVT (supraventricular tachycardia): Status: Acute <JUNIE Allen - Last Filed: 05/13/21 12:02> Assessment and Plan: Hx of SVT. Did have 2 episodes of SVT on 05/11 - treated with adenosine. Her home metoprolol dose has been increased. Amitriptyline stopped. No recurrent episodes. Tele monitor shows SR, occ PVCs rate 80-90s. Pain seems controlled. K normal. Anemia present, Hgb 8.6 today. Notes indicate plan for transfusion of packed cells. Prior echo from 2019 showed normal EF. Nuclear stress from 2019 showed normal myocardial perfusion imaging. Ongoing tele monitoring while inpt. We will follow along as needed for remainder of admit. Following discharge, we will arrange for outpt cardiology follow up. <JUNIE Allen - Last Filed: 05/13/21 12:02> (2) Anemia: Status: Acute <JUNIE Allen - Last Filed: 05/13/21 12:02> Assessment and Plan: post op hip. Has anemia. hgb 8.6, hct 25.6. Being followed by hospitailist <JUNIE Allen - Last Filed: 05/13/21 12:02> (3) Dementia: Status: Acute <JUNIE Allen - Last Filed: 05/13/21 12:02> (4) Fracture of femoral neck, left: Status: Acute <JUNIE Allen - Last Filed: 05/13/21 12:02> Assessment and Plan: s/p ORIF on left. Followed by ortho <JUINE Allen - Last Filed: 05/13/21 12:02> Fall Risk Details Current Medications: Current Medications Acetaminophen (Acetaminophen 325 Mg Tablet) 650 mg PO Q6H [facility] Last Admin: 05/13/21 10:16 Dose: 650 mg Documented by: Atorvastatin Calcium (Atorvastatin Calcium 80 Mg Tablet) 80 mg PO DAILY [facility] Last Admin: 05/13/21 08:07 Dose: 80 mg Documented by: Dextrose (Dextrose 50 % 25 Gm/50 Ml Vial) 25 gm IVPUSH Q15M PRN; Protocol PRN Reason: per Hypoglycemia Standing Ord. Docusate Sodium (Docusate Sodium 100 Mg Capsule) 100 mg PO DAILY [facility] Last Admin: 05/13/21 08:06 Dose: 100 mg Documented by: Enoxaparin Sodium (Enoxaparin Sodium 40 Mg/0.4 Ml Syringe) 40 mg SUBCUT Q24H [facility] Last Admin: 05/12/21 13:45 Dose: 40 mg Documented by: Gabapentin (Gabapentin 400 Mg Capsule) 800 mg PO BID [facility] Last Admin: 05/13/21 08:00 Dose: 800 mg Documented by: Glucose (Glucose Gel 15 Gm Gel..Gram.) 15 gm PO Q15M PRN; Protocol PRN Reason: per Hypoglycemia Standing Ord. Cefazolin Sodium/Dextrose (Ancef) 2 gm in 50 mls @ 100 mls/hr IV POSTOP [facility] Insulin Glargine (Insulin Glargine,Hum.Rec.Anlog 100 Unit/Ml 10 Ml Vial) 14 unit SUBCUT DAILY [facility] Last Admin: 05/13/21 08:03 Dose: 14 unit Documented by: Insulin Human Lispro (Insulin Lispro 100 Unit/Ml 3 Ml Vial) 0 unit SUBCUT QIDACHS [facility]; Protocol Last Admin: 05/13/21 08:04 Dose: 2 unit Documented by: Metoprolol Succinate (Metoprolol Succinate Er 25 Mg Tab.Er.24h) 75 mg PO BID@0830,2030 [facility]; Protocol Last Admin: 05/13/21 10:15 Dose: 75 mg Documented by: Omeprazole (Omeprazole 20 Mg Capsule.Dr) 20 mg PO DAILY [facility] Last Admin: 05/13/21 08:04 Dose: 20 mg Documented by: Ondansetron HCl (Ondansetron Hcl 4 Mg/2 Ml Vial) 4 mg IVPUSH Q8H PRN PRN Reason: Nausea and Vomiting Last Admin: 05/09/21 09:34 Dose: 4 mg Documented by: Oxycodone HCl (Oxycodone Hcl Immed Release 5 Mg Tablet) 5 mg PO Q8H PRN PRN Reason: Pain, Moderate (Pain Scale 4-6 Last Admin: 05/12/21 14:41 Dose: 5 mg Documented by: Pharmacy Consult (Consult Rx Perform Med Rec) 1 each MISCELLANE ONCE PRN PRN Reason: Consult order Polyethylene Glycol (Polyethylene Glycol 3350 17 Gm Powd.Pack) 17 gm PO DAILY PRN PRN Reason: Constipation Last Admin: 05/11/21 10:32 Dose: 17 gm Documented by: Sodium Chloride (0.9 % Sodium Chloride Flush 3 Ml Syringe) [facility] Last Admin: 05/13/21 10:23 Dose: 3 ml Documented by: Vitamin D (Cholecalciferol (Vitamin D3) 25 Mcg Tablet) 50 mcg PO DAILY [facility] Last Admin: 05/13/21 08:06 Dose: 50 mcg Documented by: <JUNIE Allen - Last Filed: 05/13/21 12:02> Time Spent With Patient Time: Total time spent is greater than 50% in coordination of care (as documented) at patient's floor/unit and/or counseling patient: <JUNIE Allen - Last Filed: 05/13/21 12:02> Time with patient: 15 - 24 minutes <JUNIE Allen - Last Filed: 05/13/21 12:02> Progress Note: Quality Stroke Does the patient have a stroke diagnosis?: No <JUNIE Allen - Last Filed: 05/13/21 12:02> Procedures Date of Service Date of Service: 05/13/21 <JUNIE Allen - Last Filed: 05/13/21 12:02>
[2021-05-13 11:29] LABS: Glucose, Whole Blood 239 mg/dL (60-115)
[2021-05-13] MEDS: Enoxaparin Sodium 40 MG/0.4 ML SYRINGE SUBCUT (12:02)
[2021-05-13 12:19] LABS: Appearance Urine CLOUDY; Color Urine YELLOW; Glucose Urine UA 500 MG/DL (NEG); Leukocyte Esterase Urine 2+ (NEG); Nitrite Urine POS (NEG); Specific Gravity - Urine 1.025 (1.005-1.025); UACC Culture Trigger YES; Urine Blood 2+ (NEG); Urine Ketones 5 MG/DL (NEG); Urine Protein 1+ MG/DL (NEG-TRACE)
[2021-05-13 12:37] LABS: Bacteria Urine 4+ /LPF
--- NOTE | 2021-05-13 13:26 | MHC.CM.PN ---
PLAN IS [facility] TOMORROW CURRENTLY MONITORING WBC ELEVATION.
[2021-05-13 16:45] LABS: Glucose, Whole Blood 192 mg/dL (60-115)
[2021-05-13] MEDS: cefTRIAXone sodium 1 GM in 0.9 % Sodium Chloride 50 ML IV (16:50)
[2021-05-13 20:36] LABS: Glucose, Whole Blood 146 mg/dL (60-115)
[2021-05-14 03:26] VITALS: BP 119/56; PULSE 83; RESP 16; TEMP 36.4; O2SAT 94
[2021-05-14] MEDS: Acetaminophen 325 MG TABLET 650 MG PO ×2 (05:02→11:32)
--- NOTE | 2021-05-14 06:28 | PC.NURSE ---
burgess removed at 0620.
[2021-05-14 06:35] LABS: Hematocrit 27.6 % (37.0-47.0); Mean Corpuscular HGB Conc 32.6 g/dl (31.0-35.0); Mean Corpuscular Hemoglobin 31.3 pg (27.0-33.0); Mean Corpuscular Volume 95.8 fL (80.0-98.0); Mean Platelet Volume 12.2 fL (9.4-12.3); NRBC Pct Auto 0.6 /100WBC (0.0-0.2); Platelet Count 194 X10*3/uL (160-400); Red Blood Count 2.88 X10*6/uL (4.20-5.50); Red Cell Distribution Width 13.8 % (11.0-16.0); White Blood Count 15.6 X10*3/uL (4.8-10.8)
[2021-05-14 06:54] LABS: Anion Gap 12 (12-20); Blood Urea Nitrogen 15 mg/dL (9-16); Calcium 8.2 mg/dL (8.4-10.2); Carbon Dioxide 31 mmol/L (22-29); Chloride 102 mmol/L (96-108); Estimated Glomerular Filt Rate > 60; Glucose Random 198 mg/dL (60-115); Potassium 3.5 mmol/L (3.3-5.1); Sodium 141 mmol/L (135-145)
[2021-05-14 07:44] VITALS: BP 154/73; PULSE 55; RESP 18; TEMP 36.1; O2SAT 97
[2021-05-14 07:54] LABS: Glucose, Whole Blood 185 mg/dL (60-115)
[2021-05-14] MEDS: Omeprazole 20 MG CAPSULE.DR PO (08:08)
[2021-05-14] MEDS: Cholecalciferol (Vitamin D3) 25 MCG TABLET 50 MCG PO (08:08)
[2021-05-14] MEDS: Ferrous Sulfate 324 MG TABLET.DR PO (08:08)
[2021-05-14] MEDS: Atorvastatin Calcium 80 MG TABLET PO (08:08)
[2021-05-14] MEDS: Metoprolol Succinate ER 25 MG TAB.ER.24H 75 MG PO (08:08)
[2021-05-14] MEDS: Gabapentin 400 MG CAPSULE 800 MG PO (08:08)
[2021-05-14] MEDS: Docusate Sodium 100 MG CAPSULE PO (08:08)
[2021-05-14] MEDS: 0.9 % Sodium Chloride Flush 3 ML SYRINGE IVFLUSH (08:09)
[2021-05-14] MEDS: Insulin Glargine,Hum.rec.anlog 100 UNIT/ML 10 ML VIAL 14 UNIT SUBCUT (08:09)
[2021-05-14] MEDS: Insulin Lispro 100 UNIT/ML 3 ML VIAL SUBCUT ×2 (08:09→11:37)
[2021-05-14 09:19] VITALS: BP 154/73; PULSE 55; O2SAT 97
[2021-05-14] MEDS: Enoxaparin Sodium 40 MG/0.4 ML SYRINGE SUBCUT (11:33)
[2021-05-14 11:34] VITALS: BP 103/55; PULSE 82; RESP 18; TEMP 36.5; O2SAT 98
[2021-05-14 12:02] LABS: Glucose, Whole Blood 190 mg/dL (60-115)
--- NOTE | 2021-05-14 12:21 | PM.DS ---
DS: Providers Provider Date of Service: 05/14/21 <April Ingram NP - Last Filed: 05/14/21 12:28> Date of admission: 05/08/21 16:35 <April Ingram NP - Last Filed: 05/14/21 12:28> Primary care physician: Kathryn Bhardwaj MD <April Ingram NP - Last Filed: 05/14/21 12:28> Consults: 05/08/21 16:55 Consult to Cardiology Routine Consulting Provider: Henri Hernandez Reason for consultation: left hip fracture; preop eval Has provider been notified: No 05/08/21 17:11 Consult to Orthopedics Routine Consulting Provider: Dorothy Magaña Reason for consultation: left femoral neck fracture Has provider been notified: No 05/12/21 12:04 Consult to Psychiatry Routine Consulting Provider: Psych Covering Reason for consultation: Medication review, stop amitriptyline d/t SVT Has provider been notified: No <April Ingram NP - Last Filed: 05/14/21 12:28> Attending physician on discharge: Manish Yoder <April Ingram NP - Last Filed: 05/14/21 12:28> Discharging clinician: April Ingram <April Ingram NP - Last Filed: 05/14/21 12:28> DS: Diagnosis Discharge Diagnosis (1) Fracture of femoral neck, left: Status: Acute <April Ingram NP - Last Filed: 05/14/21 12:28> (2) SVT (supraventricular tachycardia): Status: Acute <April Ingram NP - Last Filed: 05/14/21 12:28> (3) Anemia: Status: Acute <April Ingram NP - Last Filed: 05/14/21 12:28> (4) Dementia: Status: Acute <April Ingram NP - Last Filed: 05/14/21 12:28> (5) UTI (urinary tract infection): Status: Acute <April Ingram NP - Last Filed: 05/14/21 12:28> DS: Summary Hospital Course Hospital Course: HP as per admitting provider This is an 85-year-old female who was brought to the emergency department after a fall.? Patient has a history of dementia and history was obtained from family over the phone as well as through the use of a assistant food service manager.? The patient states that she was walking to the commode when she fell. She is unsure if she was using her cane at the time. She denies any dizziness, shortness of breath or chest pain.? In the emergency room she had multiple imaging studies which revealed a left femoral neck fracture. Lab work showed leukocytosis with white count of 14.5 and was otherwise unremarkable. The orthopedic team evaluated the patient and felt she should be admitted under the medical service . Leukocytosis. Likely secondary to UTI and surgery. Treated with Rocephin for UTI. Home on Ceftin. Left femoral neck fracture. s/p left hemiarthroplasty 05/10. Seen by cardiology prior to surgery. Intermediate cardiac risk Acute blood loss anemia secondary to surgery/iron def anemia. tx one unit PRBC. Added iron supplement Frequent PVCs/SVT. 2 episodes of SVT on 05/11 broke after adenosine Metoprolol increased Seen by cardiology with rec to stop rhythmol (started inpatient) and amitriptyline(can cause arrythmia) <April Ingram NP - Last Filed: 05/14/21 12:28> Time Spent with Patient Time attestation: Total time spent providing and/or coordinating discharge services: <April Ingram NP - Last Filed: 05/14/21 12:28> Discharge coordination time: Greater than 30 minutes <April Ingram NP - Last Filed: 05/14/21 12:28> Quality: Stroke Does the patient have a stroke diagnosis?: No <April Ingram NP - Last Filed: 05/14/21 12:28> Physical Exam Vital Signs: Vital Signs: Last Vital Signs Temp 97.7 F 05/14/21 11:34 Pulse 82 05/14/21 11:34 Resp 18 05/14/21 11:34 BP 103/55 L 05/14/21 11:34 Pulse Ox 98 05/14/21 11:34 BMI result Body Mass Index 29.2 <April Ingram NP - Last Filed: 05/14/21 12:28> Appearing in no acute distress head is normocephalic atraumatic eyes pupils are PERRLA sclera is anicteric mouth throat mucous membranes are intact and moist neck is supple no lymphadenopathy, no JVD noted lung sounds are clear to auscultation heart regular rate rhythm, clear S1, S2 positive bowel sounds, abdomen is soft, nontender neuro patient is alert, confused <April Ingram NP - Last Filed: 05/14/21 12:28> DS: Data Data Completed and Pending Completed studies during hospitalization [Text1]: Pending at discharge 05/09/21 14:25 Surgical [PTH] Routine <April Ingram NP - Last Filed: 05/14/21 12:28> Labs on day of discharge: Laboratory Results - last 24 hr 05/13/21 05/13/21 05/13/21 12:00 16:26 19:57 WBC RBC Hgb Hct MCV MCH MCHC RDW Plt Count MPV Absolute Nucleated RBC Nucleated RBC % (auto) Sodium Potassium Chloride Carbon Dioxide Anion Gap BUN Creatinine Estim Creat Clear Calc Estimated GFR POC Glucose 192 H 146 H Random Glucose Calcium Urine RBC 5-9 H Urine WBC 76-150 H Ur Squamous Epith Cells NONE Urine Bacteria 4+ 05/14/21 05/14/21 05/14/21 05:54 05:54 07:43 WBC 15.6 H RBC 2.88 L Hgb 9.0 L Hct 27.6 L MCV 95.8 MCH 31.3 MCHC 32.6 RDW 13.8 Plt Count 194 D MPV 12.2 Absolute Nucleated RBC 0.090 H Nucleated RBC % (auto) 0.6 H Sodium 141 Potassium 3.5 Chloride 102 Carbon Dioxide 31 H Anion Gap 12 BUN 15 Creatinine 0.63 Estim Creat Clear Calc 62.0 Estimated GFR > 60 POC Glucose 185 H Random Glucose 198 H Calcium 8.2 L Urine RBC Urine WBC Ur Squamous Epith Cells Urine Bacteria 05/14/21 11:32 WBC RBC Hgb Hct MCV MCH MCHC RDW Plt Count MPV Absolute Nucleated RBC Nucleated RBC % (auto) Sodium Potassium Chloride Carbon Dioxide Anion Gap BUN Creatinine Estim Creat Clear Calc Estimated GFR POC Glucose 190 H Random Glucose Calcium Urine RBC Urine WBC Ur Squamous Epith Cells Urine Bacteria <April Ingram NP - Last Filed: 05/14/21 12:28> Discharge Plan Discharge Anticipated Discharge Date/Time: 05/14/21 12:11 <April Ingram NP - Last Filed: 05/14/21 12:28> Patient Disposition: Xfer Inpatient Rehab Fac <April Ingram NP - Last Filed: 05/14/21 12:28> Discharge Diagnosis: Femoral neck fracture s/p Left hemiarthroplasty Anemia UTI <April Ingram NP - Last Filed: 05/14/21 12:28> Femoral neck fracture s/p Left hemiarthroplasty Anemia UTI <Mainsh Yoder MD - Last Filed: 05/14/21 16:34> Referrals: [facility] [Outside] - 1 Week Faviola Diego PA-C [Physician Crew Lead] - 2 Weeks (May 22 @1:15 pm with Faviola ) Po,Kathryn Mckinnon MD [Primary Care Provider] - 1 Week <April Ingram NP - Last Filed: 05/14/21 12:28> Discharge Medications: New metoprolol succinate 25 mg Tablet Extended Release 24 Hr 75 mg PO BID@829,2029 Qty: 180 RF: 0 oxycodone 5 mg Tablet 5 mg PO Q8H PRN (Reason: Pain, Moderate (Pain Scale 4-6) Qty: 9 RF: 0 cefuroxime axetil 500 mg tablet 500 mg PO BID Qty: 10 RF: 0 enoxaparin [Lovenox] 40 mg/0.4 mL syringe 40 mg subcut DAILY 42 Days Qty: 16.8 RF: 0 Continued (DME) miscellaneous medical supply Misc See Rx Instructions .ROUTE .MEDSUPPLY Qty: 1 RF: 0 amitriptyline 25 mg tablet 25 mg PO DAILY Qty: 90 RF: 3 gabapentin 800 mg tablet 800 mg PO BID 90 Days Qty: 180 RF: 2 atorvastatin 80 mg tablet 80 mg PO DAILY Qty: 90 RF: 2 omeprazole 20 mg capsule,delayed release(DR/EC) 20 mg PO DAILY Qty: 90 RF: 3 cholecalciferol (vitamin D3) [Vitamin D3] 50 mcg (2,000 unit) capsule 50 mcg PO DAILY Qty: 30 RF: 6 aspirin [Adult Aspirin Regimen] 81 mg tablet,delayed release (DR/EC) 81 mg PO DAILY RF: 0 metoprolol succinate 50 mg tablet extended release 24 hr 50 mg PO DAILY RF: 0 (DME) blood-glucose meter [FreeStyle Lite Meter] Kit See Rx Instructions .Route RF: 0 (DME) FreeStyle Lite Strips Strip See Rx Instructions .Route RF: 0 Trulicity 1.5 mg/0.5 mL pen injector 1.5 mg subcut QWEEK 30 Days Qty: 2 RF: 11 insulin glargine 100 unit/mL (3 mL) insulin pen 14 unit subcut DAILY 30 Days Qty: 15 RF: 11 <April Ingram NP - Last Filed: 05/14/21 12:28> Discharge Orders: Discharge Order (Routine); Ordered 05/14/21 Ordered By: April Ingram <April Ingram NP - Last Filed: 05/14/21 12:28> Diet: advance to usual diet and regular diet <April Ingram NP - Last Filed: 05/14/21 12:28> advance to usual diet and regular diet <Manish Yoder MD - Last Filed: 05/14/21 16:34> Activity on Discharge: Use cane or walker <April Ingram NP - Last Filed: 05/14/21 12:28> Use cane or walker <Manish Yoder MD - Last Filed: 05/14/21 16:34> Stand Alone Forms: Patient Portal Discharge page <April Ingram NP - Last Filed: 05/14/21 12:28> Care Plan Goals: Resolution of Urinary symptoms <April Ingram NP - Last Filed: 05/14/21 12:28> Health Concerns: Femoral neck fracture s/p Left hemiarthroplasty Anemia UTI <April Ingram NP - Last Filed: 05/14/21 12:28> Plan of Treatment: Physical Therapy for partiall hip arthroplasty: posterior precautions, gait training, ROM, strength Limit stair climbing No showering, no tub bath-keep dressing clean, dry and intact No driving x6 weeks Continue Lovenox once a day x 6 weeks Follow up with [facility] in 2 weeks Follow up with PCP as needed You will continue to take an antibiotic for a UTI. Please take as prescribed <April Ingram NP - Last Filed: 05/14/21 12:28> Assessment: See discharge summary Attending Attestation: I have personally seen and examined the patient independently (on the date of service as documented by NPP), reviewed the NPP history, exam and?MDM and agree with the assessment and plan as?written <April Ingram NP - Last Filed: 05/14/21 12:28> Discharge Date/Time: 05/14/21 14:42 <April Ingram NP - Last Filed: 05/14/21 12:28>
--- NOTE | 2021-05-14 12:49 | MHC.CM.PN ---
PATIENT TO TRANSFER TO [facility] FOR [facility]IA [facility]. RN, PATIENT, AND FAMILY ([phone]) AWARE OF PLAN. IMM 05/13 IN CHART
[2021-05-14 12:53] LABS: COVID-19 Test Negative (Negative)
== END 2021-05-14 14:42 | DRG 522 ==
LOC: HO.ED 15:58 → HO.EDOVER 20:30 → HO.S3 05-09 16:41
PROVIDERS: Internal Medicine; Orthopaedic Surgery; Admitting Provider Physician Assistant Medical; Emergency Provider Emergency Medicine; PCP Internal Medicine; Visit Provider Nurse Practitioner Acute Care
PROC: 0SRS0JA Replacement of Left Hip Joint, Femoral Surface with Synthetic Substitute, Uncemented, Open Approach (ICD-10-PCS; CPT 27125; principal; 2021-05-09 13:00)
DX: S72.002A Fracture of unspecified part of neck of left femur, initial encounter for closed fracture (principal); D62 Acute posthemorrhagic anemia; I47.1 Supraventricular tachycardia; N39.0 Urinary tract infection, site not specified; W06.XXXA Fall from bed, initial encounter; Y92.003 Bedroom of unspecified non-institutional (private) residence as the place of occurrence of the external cause; E11.65 Type 2 diabetes mellitus with hyperglycemia; K21.9 Gastro-esophageal reflux disease without esophagitis; E78.5 Hyperlipidemia, unspecified; D72.829 Elevated white blood cell count, unspecified; D75.839 Thrombocytosis, unspecified; I49.3 Ventricular premature depolarization; E11.40 Type 2 diabetes mellitus with diabetic neuropathy, unspecified; E03.9 Hypothyroidism, unspecified; F03.90 Unspecified dementia, unspecified severity, without behavioral disturbance, psychotic disturbance, mood disturbance, and anxiety; Z20.822 Contact with and (suspected) exposure to COVID-19; Z79.4 Long term (current) use of insulin; Z79.82 Long term (current) use of aspirin; Z79.899 Other long term (current) drug therapy
CPT/HCPCS: 0241U; 36415; 70450; 71045; 72125; 73502; 73564; 80048; 80076; 81001; 82272; 82947; 83540; 83690; 83735; 84132; 84484; 85014; 85018; 85025; 85027; 86850; 86900; 86901; 86923; 87086; 87635; 88305; 88311; 93005; 96360; 97162; 97166; 97530; 97535; 99285; 99499; C1776; J0131; J0153; J0690; J0696; J1100; J1170; J1650; J2250; J2270; J2370; J2405; J3010; J3475; P9016

== ENCOUNTER 2021-05-22 12:44 | Outpatient (REF) | payer MEDICARE, OTHER, SELFPAY ==
--- NOTE | ~2021-05-22 | XR_ITS ---
EXAMINATION: XR HIP, LEFT CLINICAL INFORMATION: Pain in unspecified hip. COMPARISON: Pelvis and left hip 05/08/2021. Right hip 07/29/2019. TECHNIQUE: AP and low AP views of the pelvis. Frog lateral view of the left hip. FINDINGS: The left hip hemiarthroplasty appears well-seated in near-anatomic alignment. There is significantly improved alignment of the intertrochanteric fracture with mild residual distraction, particularly in the greater trochanter region. The right hip is unremarkable. 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 There is diffuse osteopenia. XR/XR hip LT w PEL1V IMPRESSION: Status post left hip hemiarthroplasty with significant improvement in alignment of the left intertrochanteric fracture.
--- NOTE | ~2021-05-22 | XR_ITS ---
EXAMINATION: XR HIP, LEFT CLINICAL INFORMATION: Pain left hip COMPARISON: Left hip 05-27 and 05/22/2021 TECHNIQUE: Two views of the left hip. FINDINGS: There is a total left hip prosthesis with prosthetic components in satisfactory alignment. There is a nodule left greater trochanter fracture with hypertrophic callus formation laterally. No periprosthetic fracture seen. The right hip joint is unremarkable. The SI joints are symmetrical and normal. The pelvic bones are unremarkable. The soft tissues are normal. XR/XR hip LT w PEL1V IMPRESSION: Total left hip prosthesis with prosthetic components in satisfactory alignment. No change in old left greater trochanter fracture with mild callus formation. Fracture was visualized on the previous exam 05/22/2021 and 05/08/21.
== END 2021-05-22 12:45 | disposition home or self-care (01) ==
LOC: HO.HOSX 12:44
PROVIDERS: Visit Provider Physician Assistant
DX: S72.112A Displaced fracture of greater trochanter of left femur, initial encounter for closed fracture (principal); Z96.642 Presence of left artificial hip joint; X58.XXXA Exposure to other specified factors, initial encounter; Y93.9 Activity, unspecified; Y92.9 Unspecified place or not applicable; Y99.9 Unspecified external cause status
CPT/HCPCS: 73502; 99212

== ENCOUNTER 2021-06-19 08:01 | Outpatient (REF) | payer MEDICARE, MEDICAID, SELFPAY | END 2021-06-19 08:02 | disposition home or self-care (01) | LOC: HO.HOSX 08:01 | PROVIDERS: Visit Provider Physician Assistant | DX: Z47.1 Aftercare following joint replacement surgery (principal); Z96.642 Presence of left artificial hip joint; M97.02XA Periprosthetic fracture around internal prosthetic left hip joint, initial encounter | CPT/HCPCS: 73502; 99212 ==

== ENCOUNTER 2021-08-04 08:05 | Outpatient (REF) | payer MEDICARE, SELFPAY | END 2021-08-04 08:06 | disposition home or self-care (01) | LOC: HO.HOSX 08:05 | PROVIDERS: Visit Provider Physician Assistant | DX: Z13.89 Encounter for screening for other disorder (principal) ==

== ENCOUNTER → 2021-09-26 12:06 | Outpatient (BNVA) | payer MEDICARE, MEDICAID, SELFPAY | PROVIDERS: PCP Internal Medicine; Visit Provider Nurse Practitioner Gerontology | DX: E11.65 Type 2 diabetes mellitus with hyperglycemia (principal); E78.5 Hyperlipidemia, unspecified; Z79.4 Long term (current) use of insulin | CPT/HCPCS: 82947; 99212 ==

== ENCOUNTER 2021-11-28 07:16 | Outpatient (REF) | payer MEDICARE, MEDICAID, SELFPAY ==
[2021-11-28 07:35] LABS: MANUAL DIFF FLAG NO
[2021-11-28 08:03] LABS: Basophils Percent Auto 0.3 % (0-2); Eosinophils Absolute Auto 0.2 X10*3/uL (0.0-0.4); Hematocrit 38.8 % (37.0-47.0); Hemoglobin 12.8 g/dl (12.0-16.0); Imm Gran Abs Auto 0.06 X10*3/uL (0.00-0.03); Imm Gran Pct Auto 0.6 % (0.0-0.4); Immature Retic Fraction 7.9 % (3.0-15.9); Lymphocytes Absolute Auto 3.6 X10*3/uL (1.2-4.9); Lymphocytes Percent Auto 33.2 % (20-40); Mean Corpuscular Hemoglobin 31.1 pg (27.0-33.0); Mean Corpuscular Volume 94.2 fL (80.0-98.0); Mean Platelet Volume 11.1 fL (9.4-12.3); Monocytes Absolute Auto 0.7 X10*3/uL (0.1-1.2); Monocytes Percent Auto 6.1 % (2-11); Neutrophils Absolute Auto 6.3 x10*3/uL (2.0-8.3); Neutrophils Percent Auto 57.8 % (45-73); Platelet Count 172 X10*3/uL (160-400); Red Blood Count 4.12 X10*6/uL (4.20-5.50); Red Cell Distribution Width 14.3 % (11.0-16.0); Retic HGB Equivalent 36.7 pg (30.0-35.0); Reticulocyte Percent 1.3 % (0.5-1.8); Reticulocytes Absolute 0.053 X10*6/uL (0.026-0.095); White Blood Count 10.8 X10*3/uL (4.8-10.8)
[2021-11-28 08:27] LABS: Alanine Aminotransferase 36 U/L (0-31); Albumin Level 3.9 g/dL (3.5-5.0); Alkaline Phosphatase 97 U/L (39-117); Anion Gap 13 (12-20); Aspartate Amino Transferase 24 U/L (5-31); Bilirubin Total 0.6 mg/dL (0.0-1.0); Blood Urea Nitrogen 15 mg/dL (9-16); Calcium 9.2 mg/dL (8.4-10.2); Carbon Dioxide 23 mmol/L (22-29); Chloride 106 mmol/L (96-108); Cholesterol 121 mg/dL; Estimated Glomerular Filt Rate > 60; Glucose Fasting 183 mg/dL (60-99); HDL Cholesterol 41 mg/dL; Iron 47 mcg/dL (30-160); LDL Cholesterol Calculated 44 mg/dl; Percent Iron Saturation 17 % (15-50); Sodium 138 mmol/L (135-145); Total Iron Binding Capacity 282 mcg/dL (228-428); Total Protein 7.4 g/dL (6.5-8.0); Triglycerides 183 mg/dL; Unsaturated Iron Binding 235 ug/dL
[2021-11-28 08:49] LABS: Ferritin 148 ng/mL (10-250); Thyroid Stimulating Hormone 0.69 uIU/mL (0.32-4.0); Vitamin D 25-OH Total 18.1 ng/mL (>30)
[2021-11-28 08:57] LABS: Folate 9.6 ng/mL (> or = 4.0); Vitamin B12 416 pg/mL (200-900)
[2021-11-28 10:35] LABS: Microalbum/Creatinine Ratio Ur 18.4 ug/mg cr
[2021-11-30 18:45] LABS: LDL Cholesterol Direct 42 mg/dL (<100)
== END 2021-11-28 07:17 | disposition home or self-care (01) ==
LOC: HO.LAB 07:16
PROVIDERS: PCP Internal Medicine; Visit Provider Nurse Practitioner Gerontology
DX: E11.65 Type 2 diabetes mellitus with hyperglycemia (principal); Z79.4 Long term (current) use of insulin; M81.0 Age-related osteoporosis without current pathological fracture
CPT/HCPCS: 36415; 80053; 80061; 82043; 82306; 82607; 82728; 82746; 83540; 83721; 84443; 85025; 85045

== ENCOUNTER 2022-03-14 01:40 | Emergency (ER) | payer MEDICARE, MEDICAID, SELFPAY ==
[2022-03-14 01:53] VITALS: BP 99/57; PULSE 172; RESP 19; TEMP 36.7; O2SAT 96; BMI 27.4
--- NOTE | 2022-03-14 02:03 | ED.ARRPALP ---
HPI - Arrhythmia/Palpitations General Chief Complaint: Headache Stated Complaint: Headache Time Seen by Provider: 03/14/22 01:52 Source: patient and family Mode of arrival: ambulatory Limitations: altered mental status History of Present Illness HPI narrative: 86-year-old female presents to the emergency room after complaining of headache to her family patient drives and has a heart rate in the 170s patient is unable to have any complaints other than headache which she states is no longer experiencing she denies any falls or injuries patient is a diabetic but does not take any blood thinners does not have any medications the slower heart rate down she has no history of atrial fibrillation she denies chest pain at this time. But the patient is very unreliable historian. Related Data Home Medications Medication Instructions Recorded Confirmed blood-glucose meter (FreeStyle 03/06/21 01/27/22 Lite Meter kit) Previous Rx's Medication Instructions Recorded miscellaneous medical supply #1 ea 03/22/20 omeprazole 20 mg capsule,delayed 20 mg PO DAILY #90 caps 02/04/21 release insulin glargine 100 unit/mL (3 14 unit (0.14 mL) subcut DAILY 30 03/21/21 mL) subcutaneous pen days #15 mL cholecalciferol (vitamin D3) 50 50 mcg PO DAILY #30 caps 03/25/21 mcg (2,000 unit) capsule (Vitamin D3) metoprolol succinate 25 mg 75 mg PO BID@0830,2029 #180 tabs 05/14/21 tablet,extended release 24 hr acetaminophen 325 mg tablet 325 - 650 mg PO Q4-6H PRN fever or 06/12/21 pain #30 tabs diclofenac sodium 1 % topical gel 4 g topical QID #100 grams 07/16/21 (Voltaren Arthritis Pain) atorvastatin 80 mg tablet 80 mg PO DAILY #90 tabs 07/21/21 blood sugar diagnostic (FreeStyle #50 ea 09/26/21 Lite Strips) lancets 28 gauge (FreeStyle #100 ea 09/26/21 Lancets) pen needle, diabetic 32 gauge x #100 ea 09/26/21 (BD Ultra-Fine Esmer Pen Needle) amitriptyline 25 mg tablet 25 mg PO DAILY #90 tabs 10/17/21 gabapentin 800 mg tablet 800 mg PO BID 90 days #180 tabs 10/17/21 donepezil 5 mg tablet (Aricept) 5 mg PO BEDTIME #30 tabs 01/27/22 dulaglutide 1.5 mg/0.5 mL 1.5 mg (0.5 mL) subcut QWEEK #2 mL 03/04/22 subcutaneous pen injector (Trulicity) Allergies Allergy/AdvReac Type Severity Reaction Status Date / Time No Known Allergies Allergy Verified 01/27/22 14:27 [No Known Allergies*] Review of Systems Review of Systems: Yes Unobtainable due to mental status [facility] Past Medical History Medical History Anemia Closed fracture of left hip Dementia Fall Fracture of femoral neck, left Gait instability GERD (gastroesophageal reflux disease) History of paroxysmal supraventricular tachycardia HTN (hypertension) Hypercholesterolemia Migraine Peripheral vascular disease PVC (premature ventricular contraction) Sinus tachycardia Subclinical hyperthyroidism SVT (supraventricular tachycardia) Transaminitis Vitamin D deficiency Surgical History History of cholecystectomy History of left hip replacement Hx of colonoscopy Family History Family History Father No problems noted. Mother No problems noted. Social History Social History Household Members: Family Household Members Other:: lives with adult children Housing: House Unable to assess alcohol history related to: Unknown Alcohol intake: never Patient Tobacco Use Status: Never used Tobacco e-Cigarette/Vaping Use: Never Used Second Hand Smoke Exposure: No Advance Directives: Yes Advance Directives on File: Yes Advance Directives Date on File: 05/15/21 service: No Current occupational status: unemployed and disabled Cognitive needs: Yes (wheel chair/cane) Hearing needs: Yes (hearing aide) Vision needs: No Physical Exam Vital Signs: Vital Signs: Last Vital Signs Temp 98.1 F 03/14/22 01:53 Pulse 105 H 03/14/22 03:22 Resp 17 03/14/22 03:22 BP 128/71 03/14/22 03:22 Pulse Ox 98 03/14/22 03:22 O2 Del Method 03/14/22 03:22 BMI result Body Mass Index 27.4 Neurological exam: CN II- XII tested. Patient is alert and oriented to person place and time. Patient has no dysphagia or dysarthia, denies good vision in all four vision santos no nystagmus on exam, good strength to upper and lower extremities with normal reflexes to brachioradialis, wrist, patella and achilles. Negative romberg, good finger to nose and heel to lindsay. General: Well-appearing well-nourished in no signs of distress HEENT: Normocephalic atraumatic Neck: No signs of JVD, no masses no tenderness or lymphadenopathy Cardiovascular: Irregularly irregular Respiratory: Clear to auscultation bilaterally Abdomen: Soft nontender no masses Extremities: Normal pedal pulses no signs of edema Skin: Dry warm no rashes Back: No tenderness full ROM MDM - Arrhythmia/Palpitations MDM Narrative Medical decision making narrative: Concern for headache I will give patient for CT scan but my main concern is the rapid heart rate patient is not on any blood thinners has no history atrial fibrillation I will get a EKG to make sure this is atrial fibrillation I will treat the patient also the patient on fluids I will get a complete cardiac workup on the patient as well. 0210 Found to be in SVT I will start on adenosine I explained the results to the patient and daughter. Prepared them for the feeling and findings on the monitor. I repeated the EKG prior to adenosine still with SVT. She did convert to a sinus tachycardia I will give diltiazem orally IV and fluids HR improved headache is gone. I will send home and have her continue her metoprolol with PCP follow up. Differential Diagnosis Differential diagnosis: Likely palpitations, sinus tachycardia, artial fibrillation, artial flutter, ventricular premature beats, supraventricular tachycardia and ventricular tachycardia Medical Records Attestation: I reviewed the patient's medical records. Lab Data Attestation: I reviewed the patient's lab results. Result diagrams: 03/14/22 02:04 03/14/22 02:04 Labs: Lab Results 03/14/22 03/14/22 03/14/22 Range/Units 02:04 02:04 02:04 WBC 10.9 H (4.8-10.8) X10*3/uL RBC 4.38 (4.20-5.50) X10*6/uL Hgb 13.7 (12.0-16.0) g/dl Hct 40.9 (37.0-47.0) % MCV 93.4 (80.0-98.0) fL MCH 31.3 (27.0-33.0) pg MCHC 33.5 (31.0-35.0) g/dl RDW 14.1 (11.0-16.0) % Plt Count 184 (160-400) X10*3/uL MPV 10.6 (9.4-12.3) fL Immature Gran % (Auto) 0.3 (0.0-0.4) % Neut % (Auto) 56.6 (45-73) % Lymph % (Auto) 35.3 (20-40) % [place] % (Auto) 6.9 (2-11) % Eos % (Auto) 0.5 (0-4) % Baso % (Auto) 0.4 (0-2) % Lymph # (Auto) 3.9 (1.2-4.9) X10*3/uL [place] # (Auto) 0.8 (0.1-1.2) X10*3/uL Eos # (Auto) 0.1 (0.0-0.4) X10*3/uL Baso # (Auto) 0.0 (0.0-0.2) X10*3/uL Abs Immat Gran (auto) 0.03 (0.00-0.03) X10*3/uL Absolute Neuts (auto) 6.2 (2.0-8.3) x10*3/uL Absolute Nucleated RBC 0.000 (0.0-0.012) X10*3/uL Nucleated RBC % (auto) 0.0 (0.0-0.2) /100WBC Sodium 141 (135-145) mmol/L Potassium 3.6 (3.3-5.1) mmol/L Chloride 104 (96-108) mmol/L Carbon Dioxide 18 L (22-29) mmol/L Anion Gap 23 H (12-20) BUN 17 H (9-16) mg/dL Creatinine 0.99 (0.5-1.4) mg/dL Estim Creat Clear Calc 40.5 Estimated GFR 53 Random Glucose 260 H (60-115) mg/dL Calcium 9.4 (8.4-10.2) mg/dL Total Bilirubin 0.9 (0.0-1.0) mg/dL Direct Bilirubin 0.4 (0.0-0.5) mg/dL AST 58 H (5-31) U/L ALT 71 H (0-31) U/L Alkaline Phosphatase 102 (39-117) U/L Troponin I High Sens 16.2 D (<3.5-17.0) ng/L Total Protein 7.4 (6.5-8.0) g/dL Albumin 4.1 (3.5-5.0) g/dL Lipase 9 (8-78) U/L Urine Color Urine Appearance Urine pH (5.0-9.0) Ur Specific [place] (1.005-1.025) Urine Protein (Neg-Trace) mg/dL Urine Glucose (UA) (Negative) mg/dL Urine Ketones (Negative) mg/dL Urine Blood (Negative) Urine Nitrite (Negative) Ur Leukocyte Esterase (Negative) Urine RBC (0-2) /HPF Urine WBC (0-5) /HPF Ur Squamous Epith Cells (0-2) /HPF Urine Bacteria (None Seen) Hyaline Casts (0-2) /LPF COVID-19 ([facility] ENRIQUE) (Negative) COVID-19 Clin Com 03/14/22 03/14/22 Range/Units 02:04 04:12 WBC (4.8-10.8) X10*3/uL RBC (4.20-5.50) X10*6/uL Hgb (12.0-16.0) g/dl Hct (37.0-47.0) % MCV (80.0-98.0) fL MCH (27.0-33.0) pg MCHC (31.0-35.0) g/dl RDW (11.0-16.0) % Plt Count (160-400) X10*3/uL MPV (9.4-12.3) fL Immature Gran % (Auto) (0.0-0.4) % Neut % (Auto) (45-73) % Lymph % (Auto) (20-40) % [place] % (Auto) (2-11) % Eos % (Auto) (0-4) % Baso % (Auto) (0-2) % Lymph # (Auto) (1.2-4.9) X10*3/uL [place] # (Auto) (0.1-1.2) X10*3/uL Eos # (Auto) (0.0-0.4) X10*3/uL Baso # (Auto) (0.0-0.2) X10*3/uL Abs Immat Gran (auto) (0.00-0.03) X10*3/uL Absolute Neuts (auto) (2.0-8.3) x10*3/uL Absolute Nucleated RBC (0.0-0.012) X10*3/uL Nucleated RBC % (auto) (0.0-0.2) /100WBC Sodium (135-145) mmol/L Potassium (3.3-5.1) mmol/L Chloride (96-108) mmol/L Carbon Dioxide (22-29) mmol/L Anion Gap (12-20) BUN (9-16) mg/dL Creatinine (0.5-1.4) mg/dL Estim Creat Clear Calc Estimated GFR Random Glucose (60-115) mg/dL Calcium (8.4-10.2) mg/dL Total Bilirubin (0.0-1.0) mg/dL Direct Bilirubin (0.0-0.5) mg/dL AST (5-31) U/L ALT (0-31) U/L Alkaline Phosphatase (39-117) U/L Troponin I High Sens (<3.5-17.0) ng/L Total Protein (6.5-8.0) g/dL Albumin (3.5-5.0) g/dL Lipase (8-78) U/L Urine Color Yellow Urine Appearance Clear Urine pH 6.5 (5.0-9.0) Ur Specific [place] 1.010 (1.005-1.025) Urine Protein Negative (Neg-Trace) mg/dL Urine Glucose (UA) 250 H (Negative) mg/dL Urine Ketones 15 (Negative) mg/dL Urine Blood Trace H (Negative) Urine Nitrite Negative (Negative) Ur Leukocyte Esterase Negative (Negative) Urine RBC 0-2 (0-2) /HPF Urine WBC 0-5 (0-5) /HPF Ur Squamous Epith Cells 0-2 (0-2) /HPF Urine Bacteria None Seen (None Seen) Hyaline Casts 0-2 (0-2) /LPF COVID-19 ([facility] ENRIQUE) Negative (Negative) COVID-19 Clin Com See Note ECG Data Attestation: I personally reviewed and interpreted this ECG as follows: ECG interpretation date: 03/14/22 ECG interpretation time: 02:09 Prior ECG tracings: not available for review Interpretation: EKG Rate 169 supraventricular tachy[address]. I will place on monitor and given adenosine x1 Procedures Procedure Narrative Procedure Narrative: Patient got an IV cardioversion with adenosine she was given 6 mg IV arm was lifted up patient converted to normal sinus rhythm afterwards and then was started on oral diltiazem and IV diltiazem. Critical Care Time Critical Care Time Critical Care Time: Yes Total Critical Care Time: 50 Attestation: 86-year-old female found to have a very abnormal vital signs and in the room immediately patient was cardioverted with adenosine required multiple reassessments medications and complete cardiac workup patient did well Discharge Plan Discharge Clinical Impression: Dementia, Headache, Sustained SVT Patient Disposition: Home, Self-Care Instructions: Supraventricular Tachycardia (ED), Dementia (ED), Acute Headache (ED) Additional Instructions: Please call to follow up with [email or web address] doctor. If you have any other concerns please return to the ED. Prescriptions: No Action (DME) miscellaneous medical supply Misc See Rx Instructions .ROUTE .MEDSUPPLY Qty: 1 0RF Rx Instructions: As directed omeprazole 20 mg capsule,delayed release(DR/EC) 20 mg PO DAILY Qty: 90 3RF cholecalciferol (vitamin D3) [Vitamin D3] 50 mcg (2,000 unit) capsule 50 mcg PO DAILY Qty: 30 6RF atorvastatin 80 mg tablet 80 mg PO DAILY Qty: 90 2RF gabapentin 800 mg tablet 800 mg PO BID 90 Days Qty: 180 2RF amitriptyline 25 mg tablet 25 mg PO DAILY Qty: 90 3RF Trulicity 1.5 mg/0.5 mL pen injector 1.5 mg subcut QWEEK Qty: 2 3RF metoprolol succinate 25 mg Tablet Extended Release 24 Hr 75 mg PO BID@30,2029 Qty: 180 0RF Protocol: Hold for SBP/HR < HOLD for SBP < : 90 HOLD for HR < : 60 donepezil [Aricept] 5 mg tablet 5 mg PO BEDTIME Qty: 30 0RF diclofenac sodium [Voltaren Arthritis Pain] 1 % gel 4 g topical QID Qty: 100 6RF Rx Instructions: apply to single knee, ankle, foot; for foot includes sole/toes/top of foot acetaminophen 325 mg tablet 325 - 650 mg PO Q4-6H PRN (Reason: fever or pain) Qty: 30 0RF (DME) blood-glucose meter [FreeStyle Lite Meter] Kit See Rx Instructions .Route Rx Instructions: 2 times a day (DME) FreeStyle Lite Strips Strip See Rx Instructions .Route Qty: 50 11RF Rx Instructions: 2 times a day (DME) lancets [FreeStyle Lancets] 28 gauge misc See Rx Instructions .ROUTE .MEDSUPPLY Qty: 100 8RF Rx Instructions: Twice times a day (DME) pen needle, diabetic [BD Ultra-Fine Esmer Pen Needle] 32 gauge x 5/32 needle See Rx Instructions .ROUTE .MEDSUPPLY Qty: 100 3RF Rx Instructions: As directed once daily insulin glargine 100 unit/mL (3 mL) insulin pen 14 unit subcut DAILY 30 Days Qty: 15 11RF
[2022-03-14] MEDS: 0.9 % Sodium Chloride 1,000 ML 999 ML IV (02:06)
[2022-03-14 02:10] LABS: MANUAL DIFF FLAG NO
[2022-03-14 02:11] LABS: Basophils Percent Auto 0.4 % (0-2); Eosinophils Absolute Auto 0.1 X10*3/uL (0.0-0.4); Eosinophils Percent Auto 0.5 % (0-4); Hematocrit 40.9 % (37.0-47.0); Hemoglobin 13.7 g/dl (12.0-16.0); Imm Gran Abs Auto 0.03 X10*3/uL (0.00-0.03); Imm Gran Pct Auto 0.3 % (0.0-0.4); Lymphocytes Absolute Auto 3.9 X10*3/uL (1.2-4.9); Lymphocytes Percent Auto 35.3 % (20-40); Mean Corpuscular HGB Conc 33.5 g/dl (31.0-35.0); Mean Corpuscular Hemoglobin 31.3 pg (27.0-33.0); Mean Corpuscular Volume 93.4 fL (80.0-98.0); Mean Platelet Volume 10.6 fL (9.4-12.3); Monocytes Absolute Auto 0.8 X10*3/uL (0.1-1.2); Monocytes Percent Auto 6.9 % (2-11); Neutrophils Absolute Auto 6.2 x10*3/uL (2.0-8.3); Neutrophils Percent Auto 56.6 % (45-73); Platelet Count 184 X10*3/uL (160-400); Red Blood Count 4.38 X10*6/uL (4.20-5.50); Red Cell Distribution Width 14.1 % (11.0-16.0); White Blood Count 10.9 X10*3/uL (4.8-10.8)
[2022-03-14] MEDS: Acetaminophen 325 MG TABLET 650 MG PO (02:21)
[2022-03-14] MEDS: Adenosine 6 MG/2 ML VIAL IVPUSH (02:21)
[2022-03-14 02:32] LABS: Troponin-I High Sensitivity 16.2 ng/L (<3.5-17.0)
[2022-03-14 02:39] LABS: Alanine Aminotransferase 71 U/L (0-31); Albumin Level 4.1 g/dL (3.5-5.0); Alkaline Phosphatase 102 U/L (39-117); Anion Gap 23 (12-20); Aspartate Amino Transferase 58 U/L (5-31); Bilirubin Direct 0.4 mg/dL (0.0-0.5); Bilirubin Total 0.9 mg/dL (0.0-1.0); Blood Urea Nitrogen 17 mg/dL (9-16); Calcium 9.4 mg/dL (8.4-10.2); Carbon Dioxide 18 mmol/L (22-29); Chloride 104 mmol/L (96-108); Creatinine Clr Calc Pharmacy 40.5; Estimated Glomerular Filt Rate 53; Glucose Random 260 mg/dL (60-115); Lipase 9 U/L (8-78); Potassium 3.6 mmol/L (3.3-5.1); Sodium 141 mmol/L (135-145); Total Protein 7.4 g/dL (6.5-8.0)
[2022-03-14 02:43] VITALS: BP 149/88; PULSE 112; RESP 18; O2SAT 98
[2022-03-14 02:43] LABS: COVID-19 Test Negative (Negative)
[2022-03-14] MEDS: dilTIAZem HCL CD 120 MG CAP.ER.DEG PO (02:43)
[2022-03-14] MEDS: dilTIAZem HCL 50 MG/10 ML VIAL 10 MG IVPUSH (03:14)
[2022-03-14 03:16] VITALS: BP 142/79; PULSE 110; RESP 18; O2SAT 97
[2022-03-14 03:22] VITALS: BP 128/71; PULSE 105; RESP 17; O2SAT 98
[2022-03-14 04:18] LABS: Appearance Urine Clear; Color Urine Yellow; Glucose Urine UA 250 mg/dL (Negative); Leukocyte Esterase Urine Negative (Negative); Nitrite Urine Negative (Negative); PH 6.5 (5.0-9.0); UMIC TRIGGER UACC YES; Urine Blood Trace (Negative); Urine Ketones 15 mg/dL (Negative); Urine Protein Negative (Neg-Trace)
[2022-03-14 04:20] LABS: Bacteria Urine None Seen (None Seen); Hyaline Casts Urine 0-2 /LPF (0-2); RBC Urine 0-2 /HPF (0-2); Squamous Epithelial Cell Urine 0-2 /HPF (0-2); WBC Urine 0-5 /HPF (0-5)
--- NOTE | 2022-03-16 11:25 | ECG_ITS ---
Test Reason : CP Blood Pressure : / mmHG Vent. Rate : 120 BPM Atrial Rate : 120 BPM P-R Int : 176 ms QRS Dur : 072 ms QT Int : 324 ms P-R-T Axes : 040 019 049 degrees QTc Int : 457 ms Sinus tachycardia Nonspecific ST abnormality Lateral leads Abnormal ECG When compared with ECG of 14-MAR-2022 02:12, ST no longer depressed in Inferior leads QRS duration hasdecreased Referred By: Lukasz Reagan Electronically Signed By:NIDIA COSTA MD
== END 2022-03-14 04:37 | disposition home or self-care (01) ==
PROVIDERS: Emergency Provider Student in an Organized Health Care Education/Training Program; PCP Internal Medicine
DX: I47.1 Supraventricular tachycardia (principal); R51.9 Headache, unspecified; F03.90 Unspecified dementia, unspecified severity, without behavioral disturbance, psychotic disturbance, mood disturbance, and anxiety; Z20.822 Contact with and (suspected) exposure to COVID-19; E11.9 Type 2 diabetes mellitus without complications; I10 Essential (primary) hypertension; E78.00 Pure hypercholesterolemia, unspecified; Z79.84 Long term (current) use of oral hypoglycemic drugs; Z79.899 Other long term (current) drug therapy
CPT/HCPCS: 70450; 71046; 80048; 80076; 81001; 83690; 84484; 85025; 87635; 93005; 96361; 96374; 96375; 99284; 99285; J0153

== ENCOUNTER 2022-03-26 13:51 | Emergency (ER) | payer MEDICARE, MEDICAID, SELFPAY ==
--- NOTE | ~2022-03-26 | CT_ITS ---
EXAMINATION: CT ANGIOGRAM OF THE CHEST WITH AND WITHOUT CONTRAST (CT PULMONARY ANGIOGRAM FOR PE) CLINICAL INFORMATION: Reason for Exam tachycardia CP COMPARISON: None TECHNIQUE: Prior to contrast administration, noncontrast localization images were obtained. Subsequently, multidetector volumetric imaging was performed from the thoracic inlet to below the diaphragms following the administration of 75 mL Omnipaque 350 intravenous contrast. No contrast reaction reported Sagittal, coronal, and MIP oblique sagittal reformatted images were obtained on the CT workstation, uploaded to PACS, and reviewed. This CT examination was performed using dose optimization techniques as appropriate, variously including the following: *Automated exposure control *Adjustment of mA and/or kV according to patient size (this includes techniques or standardized protocols for targeted exams where dose is matched to indication/reason for exam; i.e. extremities or head) *Use of iterative reconstruction technique Total exam dose-length product 260 mGy-cm FINDINGS: QUALITY OF STUDY/CONTRAST BOLUS: Suboptimal. PULMONARY ARTERIES: Assessment for segmental pulmonary emboli in the lower lobes is centrally nondiagnostic due to since of respiratory motion artifact. No evidence of central or segmental pulmonary embolus elsewhere. THORACIC AORTA: No aneurysm or dissection. LUNG: Somewhat limited assessment of the lower lungs due to extensive respiratory motion artifact. 4 mm right upper lobe subpleural pulmonary nodule image 182/467. 7 mm sessile pleural-based nodule in the lateral right middle lobe on image 232. No other pulmonary nodules line for motion. No airspace consolidation. Linear subsegmental atelectasis at the lung bases. Central airways are clear. PLEURA: No pleural effusion or pneumothorax. MEDIASTINUM: No cardiomegaly. Dense mitral annular calcifications. Coronary artery vascular calcifications are present. No mediastinal or hilar lymphadenopathy. No evidence of septal bowing or right heart strain. CHEST WALL/AXILLA: No axillary or internal mammary lymphadenopathy. OSSEOUS STRUCTURES: No acute or suspicious osseous abnormality. Levoconvex scoliotic curvature the thoracic spinal multilevel disc degenerative change. UPPER ABDOMEN: Small calcified splenic granulomas. Upper abdominal viscera otherwise unremarkable. No reflux of contrast into the hepatic veins to suggest elevated right heart pressures. CT/CT angio chest PE protocol IMPRESSION: 1. Limited/nondiagnostic assessment for segmental pulmonary emboli in the lower lobes due to respiratory motion artifact. No evidence of central or segmental pulmonary embolus elsewhere. 2. No airspace consolidation or effusions. 3. 4 mm right upper lobe and 7 mm right middle lobe pulmonary nodules. Consider follow-up CT in 6 months time per [employer] guidelines. VTE: Negative with significant limitation as above
--- NOTE | 2022-03-26 13:52 | ECG_ITS ---
Test Reason : tachycardia Blood Pressure : / mmHG Vent. Rate : 121 BPM Atrial Rate : 121 BPM P-R Int : 154 ms QRS Dur : 084 ms QT Int : 304 ms P-R-T Axes : 032 -36 047 degrees QTc Int : 431 ms Sinus tachycardia Left anterior fascicular block Possible Left atrial enlargement Abnormal ECG When compared with ECG of 14-MAR-2022 02:15, Left anterior fascicular block is new Referred By: Generic ED Physician Electronically Signed By:NIDIA COSTA MD
[2022-03-26 14:03] VITALS: BP 146/85; PULSE 118; RESP 16; TEMP 36.4; O2SAT 95; BMI 27.6
[2022-03-26 14:31] LABS: Hematocrit 43.6 % (37.0-47.0); Hemoglobin 14.3 g/dl (12.0-16.0); Mean Corpuscular HGB Conc 32.8 g/dl (31.0-35.0); Mean Corpuscular Hemoglobin 30.9 pg (27.0-33.0); Mean Corpuscular Volume 94.2 fL (80.0-98.0); Mean Platelet Volume 10.2 fL (9.4-12.3); Platelet Count 251 X10*3/uL (160-400); Red Blood Count 4.63 X10*6/uL (4.20-5.50); Red Cell Distribution Width 14.4 % (11.0-16.0); White Blood Count 8.9 X10*3/uL (4.8-10.8)
[2022-03-26 14:41] LABS: Anion Gap 17 (12-20); Blood Urea Nitrogen 15 mg/dL (9-16); Calcium 10.1 mg/dL (8.4-10.2); Carbon Dioxide 28 mmol/L (22-29); Chloride 104 mmol/L (96-108); Creatinine Clr Calc Pharmacy 47.7; Estimated Glomerular Filt Rate > 60; Glucose Random 224 mg/dL (60-115); Potassium 4.8 mmol/L (3.3-5.1); Sodium 144 mmol/L (135-145)
[2022-03-26 14:48] LABS: Troponin-I High Sensitivity 20.1 ng/L (<3.5-17.0)
--- NOTE | 2022-03-26 18:16 | ED_ITS ---
HPI - Chest Pain General Chief Complaint: Chest Pain Stated Complaint: Fast heart rate sent from Po Time Seen by Provider: 03/26/22 18:13 Source: family Limitations: no limitations History of Present Illness HPI narrative: This is a 86-year-old female who was sent in for tachycardia. The patient had been seen here on March 14 for headache and also was found to be in SVT, was converted with adenosine. The patient remained in a sinus tachycardia. The patient follow-up with her PCP today and was still found to be somewhat tachycardic, was sent in for evaluation. Patient reportedly complained of chest pain earlier. She is demented however. Our states that it is difficult to elicit reliable information from her. She does have some headache. She denies any chest pain. She has not been noted to have any shortness of breath, cough, fever. She has been eating normally according to her daughter. She does ambulate. She has no history of blood clots, is not on any blood thinners. She does have history of diabetes. Related Data Home Medications Medication Instructions Recorded Confirmed blood-glucose meter (FreeStyle 03/06/21 03/26/22 Lite Meter kit) Previous Rx's Medication Instructions Recorded miscellaneous medical supply #1 ea 03/22/20 omeprazole 20 mg capsule,delayed 20 mg PO DAILY #90 caps 02/04/21 release insulin glargine 100 unit/mL (3 14 unit (0.14 mL) subcut DAILY 30 03/21/21 mL) subcutaneous pen days #15 mL cholecalciferol (vitamin D3) 50 50 mcg PO DAILY #30 caps 03/25/21 mcg (2,000 unit) capsule (Vitamin D3) metoprolol succinate 25 mg 75 mg PO BID@0830,2030 #180 tabs 05/14/21 tablet,extended release 24 hr acetaminophen 325 mg tablet 325 - 650 mg PO Q4-6H PRN fever or 06/12/21 pain #30 tabs diclofenac sodium 1 % topical gel 4 g topical QID #100 grams 07/16/21 (Voltaren Arthritis Pain) atorvastatin 80 mg tablet 80 mg PO DAILY #90 tabs 07/21/21 blood sugar diagnostic (FreeStyle #50 ea 09/26/21 Lite Strips) lancets 28 gauge (FreeStyle #100 ea 09/26/21 Lancets) pen needle, diabetic 32 gauge x #100 ea 09/26/2132 (BD Ultra-Fine Esmer Pen Needle) amitriptyline 25 mg tablet 25 mg PO DAILY #90 tabs 10/17/21 gabapentin 800 mg tablet 800 mg PO BID 90 days #180 tabs 10/17/21 donepezil 5 mg tablet (Aricept) 5 mg PO BEDTIME #30 tabs 01/27/22 dulaglutide 1.5 mg/0.5 mL 1.5 mg (0.5 mL) subcut QWEEK #2 mL 03/04/22 subcutaneous pen injector (Trulicity) Allergies Allergy/AdvReac Type Severity Reaction Status Date / Time No Known Allergies Allergy Verified 03/26/22 14:05 [No Known Allergies*] Review of Systems Review of Systems: Yes Unobtainable due to mental status Constitutional: Constitutional: Denies fever(s) Cardiovascular: Cardiovascular: Reports no additional cardiovascular complaints Respiratory: Respiratory: Reports no additional respiratory complaints Gastrointestinal: Gastrointestinal: Reports no additional gastrointestinal complaints Neurologic: Reports as per [facility] Past Medical History Medical History (Updated 03/26/22 @ 21:46 by Kris Mcpherson MD) Anemia Closed fracture of left hip Dementia Fall Fracture of femoral neck, left Gait instability GERD (gastroesophageal reflux disease) History of paroxysmal supraventricular tachycardia HTN (hypertension) Hypercholesterolemia Migraine Peripheral vascular disease PVC (premature ventricular contraction) Sinus tachycardia Subclinical hyperthyroidism SVT (supraventricular tachycardia) Transaminitis Vitamin D deficiency Surgical History History of cholecystectomy History of left hip replacement Hx of colonoscopy Family History Family History Father No problems noted. Mother No problems noted. Social History Social History Household Members: Family Household Members Other:: lives with adult children Housing: House Unable to assess alcohol history related to: Unknown Alcohol intake: never Patient Tobacco Use Status: Never used Tobacco e-Cigarette/Vaping Use: Never Used Second Hand Smoke Exposure: No Advance Directives: Yes Advance Directives on File: Yes Advance Directives Date on File: 05/15/21 service: No Current occupational status: unemployed and disabled Cognitive needs: Yes (wheel chair/cane) Hearing needs: Yes (hearing aide) Vision needs: No Physical Exam Vital Signs: Vital Signs: Last Vital Signs Temp 97.8 F 03/26/22 21:51 Pulse 93 03/26/22 21:51 Resp 16 03/26/22 21:51 BP 130/76 03/26/22 21:51 Pulse Ox 96 03/26/22 21:51 O2 Del Method 03/26/22 21:51 BMI result Body Mass Index 27.6 Const: Other: PERRLA Conj Mccammon Mucous membranes moist Throat clear Neck supple Lungs CTA Heart tachycardic RR no murmurs rubs or gallops Abd soft, non tender, non distended Extremities no pitting edema Neuro alert, non focal MDM - Chest Pain MDM Narrative Medical decision making narrative: Patient with dementia, had SVT recently, then sinus tachycardia, had follow-up with her PCP and was referred here due to tachycardia. Patient initially did have sinus tachycardia. During the course of her ED stay however her P came down to the 90s. Patient has no anemia. Her pulse oximetry was 93-95%, and given her tachycardia, CT was done to rule out pulmonary embolism, and was negative for any central vessel PE. Patient's TSH is normal. She is afebrile. EKG did not suggest a flutter. Patient does not appear to be in pain. Patient does not appear dehydrated and has normal renal function. Patient is safe for outpatient follow-up, may need cardiology evaluation for Medical Records Data Attestation: I reviewed the patient's medical records. Lab Data Attestation: I reviewed the patient's lab results. Result diagrams: 03/26/22 14:23 03/26/22 14:23 Labs: Lab Results 03/26/22 03/26/22 03/26/22 Range/Units 14:23 14:23 14:23 WBC 8.9 (4.8-10.8) X10*3/uL RBC 4.63 (4.20-5.50) X10*6/uL Hgb 14.3 (12.0-16.0) g/dl Hct 43.6 (37.0-47.0) % MCV 94.2 (80.0-98.0) fL MCH 30.9 (27.0-33.0) pg MCHC 32.8 (31.0-35.0) g/dl RDW 14.4 (11.0-16.0) % Plt Count 251 D (160-400) X10*3/uL MPV 10.2 (9.4-12.3) fL Absolute Nucleated RBC 0.000 (0.0-0.012) X10*3/uL Nucleated RBC % (auto) 0.0 (0.0-0.2) /100WBC Sodium 144 (135-145) mmol/L Potassium 4.8 D (3.3-5.1) mmol/L Chloride 104 (96-108) mmol/L Carbon Dioxide 28 (22-29) mmol/L Anion Gap 17 (12-20) BUN 15 (9-16) mg/dL Creatinine 0.75 (0.5-1.4) mg/dL Estim Creat Clear Calc 47.7 Estimated GFR > 60 Random Glucose 224 H (60-115) mg/dL Calcium 10.1 D (8.4-10.2) mg/dL Troponin I High Sens 20.1 H (<3.5-17.0) ng/L TSH 0.74 (0.32-4.0) uIU/mL 03/26/ Range/Units 18:56 WBC (4.8-10.8) X10*3/uL RBC (4.20-5.50) X10*6/uL Hgb (12.0-16.0) g/dl Hct (37.0-47.0) % MCV (80.0-98.0) fL MCH (27.0-33.0) pg MCHC (31.0-35.0) g/dl RDW (11.0-16.0) % Plt Count (160-400) X10*3/uL MPV (9.4-12.3) fL Absolute Nucleated RBC (0.0-0.012) X10*3/uL Nucleated RBC % (auto) (0.0-0.2) /100WBC Sodium (135-145) mmol/L Potassium (3.3-5.1) mmol/L Chloride (96-108) mmol/L Carbon Dioxide (22-29) mmol/L Anion Gap (12-20) BUN (9-16) mg/dL Creatinine (0.5-1.4) mg/dL Estim Creat Clear Calc Estimated GFR Random Glucose (60-115) mg/dL Calcium (8.4-10.2) mg/dL Troponin I High Sens (<3.5-17.0) ng/L TSH Cancelled (0.32-4.0) uIU/mL Imaging Data CTA chest: Radiologist's impression: IMPRESSION: 1.? Limited/nondiagnostic assessment for segmental pulmonary emboli in the lower lobes due to respiratory motion artifact. No evidence of central or segmental pulmonary embolus elsewhere. 2.? No airspace consolidation or effusions. 3.? 4 mm right upper lobe and 7 mm right middle lobe pulmonary nodules. Consider follow-up CT in 6 months time per [employer] guidelines. ECG Data ECG #1: ECG interpretation date: 03/26/22 ECG interpretation time: 18:16 Prior ECG tracings: available for review Interpretation: Sinus tachycardia with a rate of 121. Left anterior fascicular block, new compared to prior. Baseline artifact. No obvious ischemic changes per Discharge Plan Discharge Clinical Impression: Tachycardia Patient Disposition: Home, Self-Care Instructions: Tachycardia (ED) Additional Instructions: Follow-up with her primary care physician. Continue current medications. Return for any new or worsened symptoms. Prescriptions: No Action (DME) miscellaneous medical supply Misc See Rx Instructions .ROUTE .MEDSUPPLY Qty: 1 0RF Rx Instructions: As directed omeprazole 20 mg capsule,delayed release(DR/EC) 20 mg PO DAILY Qty: 90 3RF cholecalciferol (vitamin D3) [Vitamin D3] 50 mcg (2,000 unit) capsule 50 mcg PO DAILY Qty: 30 6RF atorvastatin 80 mg tablet 80 mg PO DAILY Qty: 90 2RF gabapentin 800 mg tablet 800 mg PO BID 90 Days Qty: 180 2RF amitriptyline 25 mg tablet 25 mg PO DAILY Qty: 90 3RF Trulicity 1.5 mg/0.5 mL pen injector 1.5 mg subcut QWEEK Qty: 2 3RF metoprolol succinate 25 mg Tablet Extended Release 24 Hr 75 mg PO BID@0830,2030 Qty: 180 0RF Protocol: Hold for SBP/HR < HOLD for SBP < : 90 HOLD for HR < : 60 donepezil [Aricept] 5 mg tablet 5 mg PO BEDTIME Qty: 30 0RF diclofenac sodium [Voltaren Arthritis Pain] 1 % gel 4 g topical QID Qty: 100 6RF Rx Instructions: apply to single knee, ankle, foot; for foot includes sole/toes/top of foot acetaminophen 325 mg tablet 325 - 650 mg PO Q4-6H PRN (Reason: fever or pain) Qty: 30 0RF (DME) blood-glucose meter [FreeStyle Lite Meter] Kit See Rx Instructions .Route Rx Instructions: 2 times a day (DME) FreeStyle Lite Strips Strip See Rx Instructions .Route Qty: 50 11RF Rx Instructions: 2 times a day (DME) lancets [FreeStyle Lancets] 28 gauge misc See Rx Instructions .ROUTE .MEDSUPPLY Qty: 100 8RF Rx Instructions: Twice times a day (DME) pen needle, diabetic [BD Ultra-Fine Esmer Pen Needle] 32 gauge x 5/32 needle See Rx Instructions .ROUTE .MEDSUPPLY Qty: 100 3RF Rx Instructions: As directed once daily insulin glargine 100 unit/mL (3 mL) insulin pen 14 unit subcut DAILY 30 Days Qty: 15 11RF
[2022-03-26] MEDS: iohexoL 350 MG/ML 100 ML INFUS..BTL IV (19:11)
[2022-03-26 19:39] VITALS: BP 121/64; PULSE 100; RESP 16; O2SAT 97
[2022-03-26 19:39] LABS: TSH reflex Free T4 0.74 uIU/mL (0.32-4.0)
[2022-03-26 20:09] VITALS: BP 116/52; PULSE 101; RESP 14; TEMP 36.6; O2SAT 94
[2022-03-26 21:51] VITALS: BP 130/76; PULSE 93; RESP 16; TEMP 36.6; O2SAT 96
== END 2022-03-26 22:25 | disposition home or self-care (01) ==
PROVIDERS: Emergency Provider Emergency Medicine; PCP Internal Medicine
DX: R07.89 Other chest pain (principal); R00.0 Tachycardia, unspecified; Z79.899 Other long term (current) drug therapy
CPT/HCPCS: 36415; 71275; 80048; 84443; 84484; 85027; 93005; 99284; Q9967

== ENCOUNTER → 2022-06-04 14:20 | Outpatient (BNVA) | payer MEDICARE, MEDICAID, SELFPAY | PROVIDERS: PCP Internal Medicine; Referring Provider Internal Medicine; Visit Provider Internal Medicine Cardiovascular Disease | DX: I47.1 Supraventricular tachycardia (principal) | CPT/HCPCS: 99202 ==

== ENCOUNTER 2022-07-06 19:03 | Emergency (ER) | payer MEDICARE, MEDICAID, SELFPAY ==
--- NOTE | ~2022-07-06 | CT_ITS ---
EXAMINATION: CT ABDOMEN AND PELVIS WITH CONTRAST CLINICAL INFORMATION: Abdominal pain. Nausea vomiting and diarrhea. COMPARISON: CT scan abdomen pelvis 06/27/2018 TECHNIQUE: Multidetector volumetric images were obtained from the superior aspect of the liver through the pubic symphysis following administration 85 mL of Omnipaque 350 intravenous contrast. Sagittal and coronal reformatted images were obtained on the technologist's workstation. Oral contrast: No This CT examination was performed using dose optimization techniques as appropriate, variously including the following: *Automated exposure control *Adjustment of mA and/or kV according to patient size (this includes techniques or standardized protocols for targeted exams where dose is matched to indication/reason for exam; i.e. extremities or head) *Use of iterative reconstruction technique DLP: 438 mGy-cm FINDINGS: LUNG BASES: Lung bases normally aerated. Heart size normal. Heavy calcification of mitral valve annulus. Heavy calcification of coronary arteries. LIVER, GALLBLADDER, AND BILIARY TREE: Status post cholecystectomy. Mild intrahepatic bile duct dilatation. Extrahepatic CBD measures 5 mm. PANCREAS: Unremarkable. SPLEEN: Small calcifications within the spleen. ADRENAL GLANDS: Unremarkable. KIDNEYS AND URETERS: The kidneys are normal in size, shape, and attenuation. No hydronephrosis, hydroureter, or calculi seen. No perinephric stranding. BLADDER: Partially obscured by streak artifact from left hip prosthesis. No obvious abnormality of the bladder. GASTROINTESTINAL TRACT: The small and large bowel are unremarkable. The appendix is unremarkable. ABDOMINAL WALL: No significant hernia is appreciated. LYMPH NODES: Normal. VASCULAR: Vascular calcifications of aorta and iliac arteries. There is no aneurysm. PELVIC VISCERA: Pelvis obscured by streak artifact from left hip replacement. OSSEOUS STRUCTURES: Status post left hip replacement. Dextroscoliosis of thoracolumbar spine. Multilevel degenerative spondylosis spine. CT/CT abdomen pelvis w IV con IMPRESSION: No acute abnormality CT scan abdomen pelvis. Fleischner guidelines were followed.
[2022-07-06 19:21] VITALS: BP 101/51; BP 110/76; PULSE 114; PULSE 123; RESP 20; TEMP 36.6; O2SAT 94; O2SAT 96; BMI 17.6
--- NOTE | 2022-07-06 19:52 | ED.NAVMDI ---
HPI - Nausea/Vomiting/Diarrhea General Chief complaint: Nausea/Vomiting/Diarrhea Stated complaint: VOMITING,DIARRHEA PER EMS Time Seen by Provider: 07/06/22 19:16 History of Present Illness HPI Narrative: patient is an 86-year-old female presents today with having nausea vomiting diarrhea. Positive history of diabetes. Positive history of hypercholesterolemia positive history of GERD. Diarrhea is mostly brown. She is from home. No fever no chills no diaphoresis. Symptoms been ongoing for about 24 hours. Related Data Home Medications Medication Instructions Recorded Confirmed blood-glucose meter (FreeStyle 03/06/21 06/04/22 Lite Meter kit) Previous Rx's Medication Instructions Recorded miscellaneous medical supply #1 ea 03/22/20 omeprazole 20 mg capsule,delayed 20 mg PO DAILY #90 caps 02/04/21 release cholecalciferol (vitamin D3) 50 50 mcg PO DAILY #30 caps 03/25/21 mcg (2,000 unit) capsule (Vitamin D3) metoprolol succinate 25 mg 75 mg PO BID@0830,2030 #180 tabs 05/14/21 tablet,extended release 24 hr acetaminophen 325 mg tablet 325 - 650 mg PO Q4-6H PRN fever or 06/12/21 pain #30 tabs diclofenac sodium 1 % topical gel 4 g topical QID #100 grams 07/16/21 (Voltaren Arthritis Pain) atorvastatin 80 mg tablet 80 mg PO DAILY #90 tabs 07/21/21 blood sugar diagnostic (FreeStyle #50 ea 09/26/21 Lite Strips) lancets 28 gauge (FreeStyle #100 ea 09/26/21 Lancets) pen needle, diabetic 32 gauge x #100 ea 09/26/21 (BD Ultra-Fine Esmer Pen Needle) amitriptyline 25 mg tablet 25 mg PO DAILY #90 tabs 10/17/21 gabapentin 800 mg tablet 800 mg PO BID 90 days #180 tabs 10/17/21 dulaglutide 1.5 mg/0.5 mL 1.5 mg (0.5 mL) subcut QWEEK #2 mL 03/04/22 [facility] insulin glargine 100 unit/mL (3 14 unit (0.14 mL) subcut DAILY 30 03/27/22 mL) subcutaneous pen days #15 mL donepezil 10 mg tablet 10 mg PO BEDTIME #30 tabs 05/19/22 ondansetron 4 mg disintegrating 4 mg PO TID PRN nausea and 07/06/22 tablet vomiting 5 days #10 tabs Allergies Allergy/AdvReac Type Severity Reaction Status Date / Time No Known Allergies Allergy Verified 07/06/22 19:26 [No Known Allergies*] Review of Systems Review of Systems: Positive nausea vomiting diarrhea generalized malaise Yes all other systems are reviewed and are negative [facility] Past Medical History Attestation statement: The following information was validated with the patient. Medical History Anemia Closed fracture of left hip Dementia Fall Fracture of femoral neck, left Gait instability GERD (gastroesophageal reflux disease) History of paroxysmal supraventricular tachycardia HTN (hypertension) Hypercholesterolemia Migraine Peripheral vascular disease PVC (premature ventricular contraction) Sinus tachycardia Subclinical hyperthyroidism SVT (supraventricular tachycardia) Transaminitis Vitamin D deficiency Surgical History History of cholecystectomy History of left hip replacement Hx of colonoscopy Family History Family History Father No problems noted. Mother No problems noted. Social History Social History Household Members: Family Household Members Other:: lives with adult children Housing: House Unable to assess alcohol history related to: Unknown Alcohol intake: never Patient Tobacco Use Status: Never used Tobacco e-Cigarette/Vaping Use: Never Used Second Hand Smoke Exposure: No Advance Directives: Yes Advance Directives on File: Yes Advance Directives Date on File: 05/15/21 service: No Current occupational status: unemployed and disabled Cognitive needs: Yes (wheel chair/cane) Hearing needs: Yes (hearing aide) Vision needs: No Physical Exam Vital Signs: Vital Signs: Last Vital Signs Temp 98.0 F 07/06/22 23:20 Pulse 100 07/06/22 23:20 Resp 17 07/06/22 23:20 BP 118/64 07/06/22 23:20 Pulse Ox 95 07/06/22 23:20 O2 Del Method 07/06/22 23:20 BMI result Body Mass Index 17.6 Appearance: Alert. Oriented X3. No acute distress. Eyes: Pupils equal, round and reactive to light. ENT: Pharynx normal. Neck: Normal inspection. Neck supple. No lymph nodes noted. No crepitus CVS: Normal heart rate and rhythm. Pulses normal. Normal S1 and S2 Respiratory: No respiratory distress. Breath sounds normal. No Wheezing. No rales Abdomen: Soft and nontender. No rigidity. No distention. good BS x4 Skin: Skin warm and dry. Normal skin color. Normal skin turgor. Extremities: No lower extremity edema. Neurovascular intact to all extremities. No Lacerations. No Rash Neuro: Oriented X 3. No motor deficit. No sensory deficit. Moving all extermities. No slurred speech Medications Administered Discontinued Medications Generic Name Dose Route Start Last Admin Trade Name Freq PRN Reason Stop Dose Admin Sodium Chloride 1,000 mls @ 999 mls/hr 07/06/22 19:45 07/06/22 21:49 Ns IV 07/06/22 20:45 999 mls/hr .Q1H1M RAMAN Administration Iohexol 100 ml 07/06/22 22:10 07/06/22 22:10 Iohexol 350 Mg/Ml 100 Ml Infus..Btl IV 07/06/22 22:11 85 ml ONCE ONE Administration Ondansetron HCl 4 mg 07/06/22 19:43 07/06/22 21:49 Ondansetron Hcl 4 Mg/2 Ml Vial IVPUSH 07/06/22 19:44 4 mg ONCE ONE Administration Medical Decision Making Medical Decision Making [facility] Narrative: patient had nausea vomiting diarrhea. No travel history. No coughing or congestion or upper respiratory symptoms. CT scan of the abdomen did not show any acute evidence of obstruction, abscess, perforation. Patient given IV fluid Zofran for nausea with good resolution of symptoms. Now tolerating fluids. No fever no chills. currently in stable condition. Will discharge patient home. Differential Diagnosis Differential Diagnoses: The differential diagnosis associated with the presentation includes obstruction, abscess, perforation Lab Data [facility] Lab Attestation statement: I reviewed the patient's lab results. 07/06/22 20:24 07/06/22 20:24 Labs: Lab Results 07/06/22 07/06/22 Range/Units 20:24 20:24 WBC 11.1 H (4.8-10.8) X10*3/uL RBC 4.69 (4.20-5.50) X10*6/uL Hgb 14.4 (12.0-16.0) g/dl Hct 43.9 (37.0-47.0) % MCV 93.6 (80.0-98.0) fL MCH 30.7 (27.0-33.0) pg MCHC 32.8 (31.0-35.0) g/dl RDW 14.3 (11.0-16.0) % Plt Count 179 D (160-400) X10*3/uL MPV 10.4 (9.4-12.3) fL Immature Gran % (Auto) 0.5 H (0.0-0.4) % Neut % (Auto) 76.6 H (45-73) % Lymph % (Auto) 15.7 L (20-40) % [place] % (Auto) 6.2 (2-11) % Eos % (Auto) 0.8 (0-4) % Baso % (Auto) 0.2 (0-2) % Lymph # (Auto) 1.8 (1.2-4.9) X10*3/uL [place] # (Auto) 0.7 (0.1-1.2) X10*3/uL Eos # (Auto) 0.1 (0.0-0.4) X10*3/uL Baso # (Auto) 0.0 (0.0-0.2) X10*3/uL Abs Immat Gran (auto) 0.06 H (0.00-0.03) X10*3/uL Absolute Neuts (auto) 8.5 H (2.0-8.3) x10*3/uL Absolute Nucleated RBC 0.000 (0.0-0.012) X10*3/uL Nucleated RBC % (auto) 0.0 (0.0-0.2) /100WBC Sodium 146 H (135-145) mmol/L Potassium 4.4 (3.3-5.1) mmol/L Chloride 107 (96-108) mmol/L Carbon Dioxide 26 (22-29) mmol/L Anion Gap 17 (12-20) BUN 25 H (9-16) mg/dL Creatinine 1.29 (0.5-1.4) mg/dL Estim Creat Clear Calc 22.8 Estimated GFR 39 Random Glucose 281 H (60-115) mg/dL Calcium 10.1 (8.4-10.2) mg/dL Total Bilirubin 1.1 H (0.0-1.0) mg/dL Direct Bilirubin 0.4 (0.0-0.5) mg/dL AST 15 (5-31) U/L ALT 33 H (0-31) U/L Alkaline Phosphatase 101 (39-117) U/L Total Protein 7.6 (6.5-8.0) g/dL Albumin 4.1 (3.5-5.0) g/dL Lipase 6 L (8-78) U/L Independent Historian Clinical information obtained from an independent historian. History obtained from or confirmed by: Other additional history obtained from family Chronic Conditions Patient?s care impacted by: Diabetes and Hypertension Social Determinants Patient?s care significantly limited by Social Determinants of Health including: Inadequate housing Discharge Plan Discharge Clinical Impression: Dehydration, Nausea & vomiting Patient Disposition: Home, Self-Care Instructions: Dehydration (ED), Acute Nausea and Vomiting (ED) Additional Instructions: please hydrate. Zofran for nausea. Prescriptions: New ondansetron 4 mg tablet,disintegrating 4 mg PO TID PRN (Reason: nausea and vomiting) 5 Days Qty: 10 0RF No Action (DME) miscellaneous medical supply Misc See Rx Instructions .ROUTE .MEDSUPPLY Qty: 1 0RF Rx Instructions: As directed omeprazole 20 mg capsule,delayed release(DR/EC) 20 mg PO DAILY Qty: 90 3RF cholecalciferol (vitamin D3) [Vitamin D3] 50 mcg (2,000 unit) capsule 50 mcg PO DAILY Qty: 30 6RF atorvastatin 80 mg tablet 80 mg PO DAILY Qty: 90 2RF gabapentin 800 mg tablet 800 mg PO BID 90 Days Qty: 180 2RF amitriptyline 25 mg tablet 25 mg PO DAILY Qty: 90 3RF Trulicity 1.5 mg/0.5 mL pen injector 1.5 mg subcut QWEEK Qty: 2 3RF insulin glargine 100 unit/mL (3 mL) insulin pen 14 unit subcut DAILY 30 Days Qty: 15 0RF metoprolol succinate 25 mg Tablet Extended Release 24 Hr 75 mg PO BID@0830,2029 Qty: 180 0RF Protocol: Hold for SBP/HR < HOLD for SBP < : 90 HOLD for HR < : 60 donepezil 10 mg tablet 10 mg PO BEDTIME Qty: 30 1RF diclofenac sodium [Voltaren Arthritis Pain] 1 % gel 4 g topical QID Qty: 100 6RF Rx Instructions: apply to single knee, ankle, foot; for foot includes sole/toes/top of foot acetaminophen 325 mg tablet 325 - 650 mg PO Q4-6H PRN (Reason: fever or pain) Qty: 30 0RF (DME) blood-glucose meter [FreeStyle Lite Meter] Kit See Rx Instructions .Route Rx Instructions: 2 times a day (DME) FreeStyle Lite Strips Strip See Rx Instructions .Route Qty: 50 11RF Rx Instructions: 2 times a day (DME) lancets [FreeStyle Lancets] 28 gauge misc See Rx Instructions .ROUTE .MEDSUPPLY Qty: 100 8RF Rx Instructions: Twice times a day (DME) pen needle, diabetic [BD Ultra-Fine Esmer Pen Needle] 32 gauge x 5/32 needle See Rx Instructions .ROUTE .MEDSUPPLY Qty: 100 3RF Rx Instructions: As directed once daily Referrals: Physician,Unknown J [Primary Care Provider] -
[2022-07-06 20:32] LABS: MANUAL DIFF FLAG NO
[2022-07-06 20:41] LABS: Basophils Percent Auto 0.2 % (0-2); Eosinophils Absolute Auto 0.1 X10*3/uL (0.0-0.4); Eosinophils Percent Auto 0.8 % (0-4); Hematocrit 43.9 % (37.0-47.0); Hemoglobin 14.4 g/dl (12.0-16.0); Imm Gran Abs Auto 0.06 X10*3/uL (0.00-0.03); Imm Gran Pct Auto 0.5 % (0.0-0.4); Lymphocytes Absolute Auto 1.8 X10*3/uL (1.2-4.9); Lymphocytes Percent Auto 15.7 % (20-40); Mean Corpuscular HGB Conc 32.8 g/dl (31.0-35.0); Mean Corpuscular Hemoglobin 30.7 pg (27.0-33.0); Mean Corpuscular Volume 93.6 fL (80.0-98.0); Mean Platelet Volume 10.4 fL (9.4-12.3); Monocytes Absolute Auto 0.7 X10*3/uL (0.1-1.2); Monocytes Percent Auto 6.2 % (2-11); Neutrophils Absolute Auto 8.5 x10*3/uL (2.0-8.3); Neutrophils Percent Auto 76.6 % (45-73); Platelet Count 179 X10*3/uL (160-400); Red Blood Count 4.69 X10*6/uL (4.20-5.50); Red Cell Distribution Width 14.3 % (11.0-16.0); White Blood Count 11.1 X10*3/uL (4.8-10.8)
[2022-07-06 20:53] LABS: Alanine Aminotransferase 33 U/L (0-31); Albumin Level 4.1 g/dL (3.5-5.0); Alkaline Phosphatase 101 U/L (39-117); Anion Gap 17 (12-20); Aspartate Amino Transferase 15 U/L (5-31); Bilirubin Direct 0.4 mg/dL (0.0-0.5); Bilirubin Total 1.1 mg/dL (0.0-1.0); Blood Urea Nitrogen 25 mg/dL (9-16); Calcium 10.1 mg/dL (8.4-10.2); Carbon Dioxide 26 mmol/L (22-29); Chloride 107 mmol/L (96-108); Creatinine Clr Calc Pharmacy 22.8; Estimated Glomerular Filt Rate 39; Glucose Random 281 mg/dL (60-115); Lipase 6 U/L (8-78); Potassium 4.4 mmol/L (3.3-5.1); Sodium 146 mmol/L (135-145); Total Protein 7.6 g/dL (6.5-8.0)
[2022-07-06] MEDS: 0.9 % Sodium Chloride 1,000 ML 999 ML IV (21:49)
[2022-07-06] MEDS: ondansetron HCL 4 MG/2 ML VIAL IVPUSH (21:49)
[2022-07-06] MEDS: iohexoL 350 MG/ML 100 ML INFUS..BTL IV (22:10)
[2022-07-06 23:20] VITALS: BP 118/64; PULSE 100; RESP 17; TEMP 36.7; O2SAT 95
== END 2022-07-07 00:17 | disposition home or self-care (01) ==
PROVIDERS: Emergency Provider Emergency Medicine Emergency Medical Services
DX: E86.0 Dehydration (principal); R11.2 Nausea with vomiting, unspecified; R19.7 Diarrhea, unspecified; Z79.899 Other long term (current) drug therapy
CPT/HCPCS: 36415; 74177; 80048; 80076; 83690; 85025; 96374; 99283; 99284; J2405; Q9967

== ENCOUNTER 2022-11-26 07:28 | Outpatient (REF) | payer MEDICARE, MEDICAID, SELFPAY ==
[2022-11-26 07:40] LABS: MANUAL DIFF FLAG NO
[2022-11-26 07:47] LABS: Basophils Absolute Auto 0.1 X10*3/uL (0.0-0.2); Basophils Percent Auto 0.6 % (0-2); Eosinophils Absolute Auto 0.3 X10*3/uL (0.0-0.4); Eosinophils Percent Auto 3.4 % (0-4); Hematocrit 39.1 % (37.0-47.0); Hemoglobin 12.8 g/dl (12.0-16.0); Imm Gran Abs Auto 0.03 X10*3/uL (0.00-0.03); Imm Gran Pct Auto 0.3 % (0.0-0.4); Lymphocytes Absolute Auto 2.9 X10*3/uL (1.2-4.9); Lymphocytes Percent Auto 32.7 % (20-40); Mean Corpuscular HGB Conc 32.7 g/dl (31.0-35.0); Mean Corpuscular Hemoglobin 30.8 pg (27.0-33.0); Mean Corpuscular Volume 94.2 fL (80.0-98.0); Mean Platelet Volume 10.2 fL (9.4-12.3); Monocytes Absolute Auto 0.7 X10*3/uL (0.1-1.2); Monocytes Percent Auto 7.9 % (2-11); Neutrophils Absolute Auto 4.9 x10*3/uL (2.0-8.3); Neutrophils Percent Auto 55.1 % (45-73); Platelet Count 173 X10*3/uL (160-400); Red Blood Count 4.15 X10*6/uL (4.20-5.50); Red Cell Distribution Width 13.8 % (11.0-16.0); White Blood Count 8.9 X10*3/uL (4.8-10.8)
[2022-11-26 08:11] LABS: Alanine Aminotransferase 50 U/L (0-31); Albumin Level 3.9 g/dL (3.5-5.0); Alkaline Phosphatase 96 U/L (39-117); Anion Gap 13 (12-20); Aspartate Amino Transferase 41 U/L (5-31); Bilirubin Total 0.6 mg/dL (0.0-1.0); Blood Urea Nitrogen 13 mg/dL (9-16); Calcium 10.3 mg/dL (8.4-10.2); Carbon Dioxide 29 mmol/L (22-29); Chloride 106 mmol/L (96-108); Cholesterol 119 mg/dL; Estimated Glomerular Filt Rate > 60; Glucose Random 185 mg/dL (60-115); HDL Cholesterol 47 mg/dL; LDL Cholesterol Calculated 51 mg/dl; Potassium 4.2 mmol/L (3.3-5.1); Sodium 144 mmol/L (135-145); Total Protein 7.8 g/dL (6.5-8.0); Triglycerides 109 mg/dL
[2022-11-26 08:31] LABS: Free T4 (Free Thyroxine) 0.84 ng/dL (0.71-1.85); Thyroid Stimulating Hormone 0.78 uIU/mL (0.32-4.0); Vitamin D 25-OH Total 19.7 ng/mL (>30)
[2022-11-26 08:41] LABS: Folate 12.4 ng/mL (> or = 4.0); Vitamin B12 520 pg/mL (200-900)
[2022-11-26 10:44] LABS: Estimated Average Glucose 192 mg/dL; Hemoglobin A1c % 8.3 %
== END 2022-11-26 07:29 | disposition home or self-care (01) ==
LOC: HO.LAB 07:28
PROVIDERS: PCP Internal Medicine; Visit Provider Internal Medicine
DX: E11.65 Type 2 diabetes mellitus with hyperglycemia (principal); E78.00 Pure hypercholesterolemia, unspecified; E55.9 Vitamin D deficiency, unspecified; M85.80 Other specified disorders of bone density and structure, unspecified site
CPT/HCPCS: 36415; 80053; 80061; 82306; 82607; 82746; 83036; 84439; 84443; 85025

== ENCOUNTER 2023-03-02 13:45 | Outpatient (AMB) | payer OTHER, SELFPAY ==
[2023-03-02 14:10] VITALS: BP 112/62; PULSE 74; O2SAT 91; BMI 23.4
--- NOTE | 2023-03-02 14:10 | A.OFFPC_ITS ---
Vital Signs 03/02/23 14:10 Height 5 ft 1 in Weight 123 lb 14.397 oz BMI 23.4 BP 112/62 Blood Pressure Location Lt brachial Position Sitting Pulse 74 Pulse Source Pulse Oximeter Pulse Oximetry (%) 91 L Oxygen Delivery Method Room Air Intake Visit Reasons: DM Allergies No Known Allergies [No Known Allergies*] Allergy (Verified 03/02/23 14:11) Medication List - Last Reconciled 03/02/23 by Kathryn Bhardwaj MD acetaminophen 325 - 650 mg (1 - 2 x 325 mg) PO Q4-6H PRN [Adult pull ups As directed] atorvastatin 80 mg PO DAILY blood sugar diagnostic (FreeStyle Lite Strips) 2 times a day blood-glucose meter (FreeStyle Lite Meter kit) 2 times a day cholecalciferol (vitamin D3) (Vitamin D3) 50 mcg PO DAILY diclofenac sodium 1% (Voltaren Arthritis Pain) 4 grams topical QID donepezil 10 mg PO BEDTIME dulaglutide (Trulicity) 1.5 mg (0.5 mL) subcut QWEEK gabapentin 800 mg PO BID 90 days insulin glargine 14 units (0.14 mL) subcut DAILY 30 days lancets (FreeStyle Lancets) Twice times a day lidocaine 5% 1 patch topical DAILY linagliptin (Tradjenta) 5 mg PO DAILY metoprolol succinate ER 75 mg See Protocol PO BID@ miscellaneous medical supply As directed omeprazole 20 mg PO DAILY pen needle, diabetic (BD Ultra-Fine Esmer Pen Needle) As directed once daily quetiapine (Seroquel) 25 mg PO BEDTIME Tobacco use date assessed: 07/31/22 Fall risk assessment: No Falls in past year Last assessed Fall Risk: 03/02/23 Dental Screening Dental Screen Date: 03/02/23 Did you have a dental visit in the last 12 months?: No Did you have a dental problem in the last 6 months where you did not have access to dental care?: No Was dental information given to patient?: No HPI DM HPI Details 87-year-old female with diabetes mellitu s dementia hypertension hypercholesterolemia GERD last seen in November 2022 patient is here for follow-up complains of not sleeping and confused, also R hip pain, PFSH Medical History Anemia Closed fracture of left hip Dementia Fall Fracture of femoral neck, left Gait instability GERD (gastroesophageal reflux disease) History of paroxysmal supraventricular tachycardia HTN (hypertension) Hypercholesterolemia Migraine Peripheral vascular disease PVC (premature ventricular contraction) Sinus tachycardia Subclinical hyperthyroidism SVT (supraventricular tachycardia) Transaminitis Vitamin D deficiency Surgical History History of cholecystectomy History of left hip replacement Hx of colonoscopy Family History Father No problems noted. Mother No problems noted. Social History Household Members: Family Household Members Other:: lives with adult children Housing: House Unable to assess alcohol history related to: Unknown Alcohol intake: never Patient Tobacco Use Status: Never used Tobacco e-Cigarette/Vaping Use: Never Used Second Hand Smoke Exposure: No Advance Directives Date on File: 05/15/21 service: No Current occupational status: unemployed and disabled Cognitive needs: Yes (wheel chair/cane) Hearing needs: Yes (hearing aide) Vision needs: Yes (glasses) Questionnaire PHQ-9 Over the last 2 weeks, how often have you been bothered by any of the following problems? 1. Little interest or pleasure in doing things: not at all 2. Feeling down, depressed, or hopeless: not at all 3. Trouble falling or staying asleep, or sleeping too much: not at all 4. Feeling tired or having little energy: not at all 5. Poor appetite or overeating: not at all 6. Feeling bad about yourself - or that you are a failure or have let yourself or your family down: not at all 7. Trouble concentrating on things, such as reading the newspaper or watching television: not at all 8. Moving or speaking so slowly that other people could have noticed. Or the opposite - being so fidgety or restless that you have been moving around a lot more than usual: not at all 9. Thoughts that you would be better off or of hurting yourself in some way: not at all Total score: 0 Depression Screening Interpretation: Negative Source: Developed by Drs. Eduardo Cortez, Aggie B.WWood Wiseman and colleagues, with an educational carine from [employer]. Thrive Questionnaire Date Thrive assessed: 07/31/22 AUDIT C Alcohol Use Questionnaire (AUDIT-C) 1. How often do you have a drink containing alcohol?: Never 2. How many drinks containing alcohol do you have on a typical day when you are drinking?: 1 or 2 3. How often do you have six or more drinks on one occasion?: Never Total Score: 0 SUZIE-7 AMB Questionnaire SUZIE-7 Date SUZIE - 7 assessed: 07/31/22 Source: Developed by Drs. Eduardo Cortez, Wood Domínguez and colleagues, with an educational carine from [employer]. Physical exam (Primary Care) Vital Signs: Last Vital Signs Pulse 74 03/02/23 14:10 BP 112/62 03/02/23 14:10 Pulse Ox 91 L 03/02/23 14:10 Oxygen Delivery Method Room Air 03/02/23 14:10 BMI result Body Mass Index 23.4 Tobacco/Smoking Status: Tobacco use Status Tobacco use date assessed 07/31/22 03/02/23 14:11 Patient Tobacco Use Status Never used Tobacco 03/02/23 14:11 e-Cigarette/Vaping Use Never Used 03/02/23 14:11 PHQ-9: PHQ-9 Score PHQ-9: Total score 0 03/02/23 14:26 Depression Screening Interpretation: Negative Thrive Assessment: Date of Thrive Assessment Date Thrive assessed 07/31/22 03/02/23 14:11 Const General: alert; No acute distress Eyes Conjunctivae: conjunctivae normal Resp Auscultation: clear to auscultation bilaterally Cardio Rate: regular rate Rhythm: regular rhythm GI Inspection: Yes normal to inspection Extrem General: Yes normal to inspection and No edema Results AMB Hemoglobin A1c AMB Hemoglobin A1c 7.4 % Last Edit by Corinna Gallo CMA on 03/02/23 14 :26 Results Reviewed Results Reviewed: Laboratory Last Values Hgb A1c (Clinic) 7.4 % (4.0-6.0) H 03/02/23 14:12 Assessment and Plan Assessment & Plan (1) HTN (hypertension): Code(s): I10 - Essential (primary) hypertension Qualifiers: Hypertension type: essential hypertension Qualified Code(s): I10 - Essential (primary) hypertension Plan: Continue with blood pressure medication. Decrease salt intake and exercise patient takes metoprolol 75 mg twice a day (2) GERD (gastroesophageal reflux disease): Code(s): K21.9 - Gastro-esophageal reflux disease without esophagitis Plan: Avoid the foods that causes that usually spicy foods, tomato products, juices, coffee, soda and foods that your sensitive to. After eating do not lie down, allow 3-4 hours before in lie down. And keep the head of bed above 30 degrees to avoid the acid from going up. On omeprazole (3) Hypercholesterolemia: Code(s): E78.00 - Pure hypercholesterolemia, unspecified Plan: Avoid fried foods, chicken skin, eggs, butter margarine, pastries and meat. Be it pork or beef they have a lot of cholesterol LDL goal of less than 100 and triglyceride of less than 150. Patient is on atorvastatin 80 mg once a day (4) Type 2 diabetes mellitus with hyperglycemia: Code(s): E11.65 - Type 2 diabetes mellitus with hyperglycemia Plan: Decrease the amount of carbohydrate intake, pasta, bread, rice and potatoes are all sugar and that is aside from all the sweet stuff, remember that fruits are good but they are Sweet also. Hemoglobin A1c goal of less than 7.0 patient is taking Trulicity 1.5 mg once a week Lantus at 14 units once a day Tradjenta 5 mg once a day (5) Dementia: Code(s): F03.90 - Unspecified dementia, unspecified severity, without behavioral dis turbance, psychotic disturbance, mood disturbance, and anxiety Plan: Continue did Aricept. (6) Low back pain: Code(s): M54.50 - Low back pain, unspecified Orders: Orders AMB Hemoglobin A1c Today Z13.9 - Encounter for screening, unspecified Medications: New quetiapine (Seroquel) 25 mg PO BEDTIME 30 tabs 3RF F03.90 - Unspecified dementia, unspecified severity, without behavioral disturbance, psychotic disturbance, mood disturbance, and anxiety lidocaine 5% leave on most painful area for up to 12 hrs 1 patch topical DAILY 30 ea 4RF M54.50 - Low back pain, unspecified Discontinued amitriptyline Discontinued Reason: Doctor's Order 25 mg PO DAILY 90 tabs 3RF Coding Level of Care Code Est Pt Level 4 (03640) Diagnoses Essential hypertension I10 Hypertension type: essential hypertension GERD (gastroesophageal reflux disease) K21.9 Hypercholesterolemia E78.00 Type 2 diabetes mellitus with hyperglycemia E11.65 Late onset Alzheimer's dementia without behavioral disturbance F03.90 Low back pain M54.50 Additional Codes PHQ-9 - 35867 - PHQ-9 Billing: ([id number])
== END 2023-03-02 15:07 | disposition home or self-care (01) ==
PROVIDERS: PCP Internal Medicine; Visit Provider Internal Medicine
DX: I10 Essential (primary) hypertension (principal); K21.9 Gastro-esophageal reflux disease without esophagitis; E11.65 Type 2 diabetes mellitus with hyperglycemia; F03.90 Unspecified dementia, unspecified severity, without behavioral disturbance, psychotic disturbance, mood disturbance, and anxiety; E78.00 Pure hypercholesterolemia, unspecified; M54.50 Low back pain, unspecified
CPT/HCPCS: 83036; 99214

== ENCOUNTER 2023-04-15 13:16 | Outpatient (AMB) | payer OTHER, SELFPAY ==
[2023-04-15 13:24] VITALS: BP 132/68; PULSE 103; O2SAT 93; BMI 22.7
--- NOTE | 2023-04-15 13:24 | A.OFFPC_ITS ---
Vital Signs 04/15/23 13:24 Height 5 ft 1 in Weight 120 lb 5.958 oz BMI 22.7 BP 132/68 Blood Pressure Location Lt brachial Position Sitting Pulse 103 H Pulse Source Pulse Oximeter Pulse Oximetry (%) 93 Oxygen Delivery Method Room Air Intake Visit Reasons: inability to eat/ taking meds Allergies No Known Allergies [No Known Allergies*] Allergy (Verified 04/15/23 13:24) Medication List - Last Reconciled 04/15/23 by Kathryn Bhardwaj MD acetaminophen 325 - 650 mg (1 - 2 x 325 mg) PO Q4-6H PRN [Adult pull ups As directed] atorvastatin 80 mg PO DAILY blood sugar diagnostic (FreeStyle Lite Strips) 2 times a day blood-glucose meter (FreeStyle Lite Meter kit) 2 times a day cholecalciferol (vitamin D3) (Vitamin D3) 50 mcg PO DAILY diclofenac sodium 1% (Voltaren Arthritis Pain) 4 grams topical QID gabapentin 800 mg PO BID 90 days insulin glargine 14 units (0.14 mL) subcut DAILY 30 days lancets (FreeStyle Lancets) Twice times a day lidocaine 5% 1 patch topical DAILY linagliptin (Tradjenta) 5 mg PO DAILY metoprolol succinate ER 75 mg See Protocol PO BID@ miscellaneous medical supply As directed omeprazole 20 mg PO DAILY pen needle, diabetic (BD Ultra-Fine Esmer Pen Needle) As directed once daily quetiapine (Seroquel) 25 mg PO BEDTIME Tobacco use date assessed: 07/31/22 Fall risk assessment: No Falls in past year Last assessed Fall Risk: 04/15/23 Dental Screening Dental Screen Date: 04/15/23 Did you have a dental visit in the last 12 months?: No Did you have a dental problem in the last 6 months where you did not have access to dental care?: No Was dental information given to patient?: No HPI inability to eat/ taking meds HPI Details 87-year-old female with uncontrolled fabio betes mellitus hypertension hypercholesterolemia and GERD dementia coming in for follow-up. February last seen with A1c of 7.4 complete blood work done November with LDL of is 51 PFSH Medical History Anemia Closed fracture of left hip Dementia Fall Fracture of femoral neck, left Gait instability GERD (gastroesophageal reflux disease) History of paroxysmal supraventricular tachycardia HTN (hypertension) Hypercholesterolemia Migraine Peripheral vascular disease PVC (premature ventricular contraction) Sinus tachycardia Subclinical hyperthyroidism SVT (supraventricular tachycardia) Transaminitis Vitamin D deficiency Surgical History History of cholecystectomy History of left hip replacement Hx of colonoscopy Family History Father No problems noted. Mother No problems noted. Social History Household Members: Family Household Members Other:: lives with adult children Housing: House Unable to assess alcohol history related to: Unknown Alcohol intake: never Patient Tobacco Use Status: Never used Tobacco e-Cigarette/Vaping Use: Never Used Second Hand Smoke Exposure: No Advance Directives Date on File: 05/15/21 service: No Current occupational status: unemployed and disabled Cognitive needs: Yes (wheel chair/cane) Hearing needs: Yes (hearing aide) Vision needs: Yes (glasses) Questionnaire PHQ-9 Over the last 2 weeks, how often have you been bothered by any of the following problems? 1. Little interest or pleasure in doing things: not at all 2. Feeling down, depressed, or hopeless: not at all 3. Trouble falling or staying asleep, or sleeping too much: not at all 4. Feeling tired or having little energy: not at all 5. Poor appetite or overeating: not at all 6. Feeling bad about yourself - or that you are a failure or have let yourself or your family down: not at all 7. Trouble concentrating on things, such as reading the newspaper or watching television: not at all 8. Moving or speaking so slowly that other people could have noticed. Or the opposite - being so fidgety or restless that you have been moving around a lot more than usual: not at all 9. Thoughts that you would be better off or of hurting yourself in some way: not at all Total score: 0 Depression Screening Interpretation: Negative Depression Screening Done: Yes Source: Developed by Drs. Eduardo Cortez, Aggie Baig, Wood Foote and colleagues, with an educational carnie from [employer]. Thrive Questionnaire Date Thrive assessed: 07/31/22 AUDIT C Alcohol Use Questionnaire (AUDIT-C) 1. How often do you have a drink containing alcohol?: Never 2. How many drinks containing alcohol do you have on a typical day when you are drinking?: 1 or 2 3. How often do you have six or more drinks on one occasion?: Never Total Score: 0 SUZIE-7 AMB Questionnaire SUZIE-7 Date SUZIE - 7 assessed: 07/31/22 Source: Developed by Drs. Eduardo Cortez, Aggie Baig, Wood Foote and colleagues, with an educational carine from [employer]. Physical exam (Primary Care) Vital Signs: Last Vital Signs Pulse 103 H 04/15/23 13:24 BP 132/68 04/15/23 13:24 Pulse Ox 93 04/15/23 13:24 Oxygen Delivery Method Room Air 04/15/23 13:24 BMI result Body Mass Index 22.7 Tobacco/Smoking Status: Tobacco use Status Tobacco use date assessed 07/31/22 04/15/23 13:25 Patient Tobacco Use Status Never used Tobacco 04/15/23 13:25 e-Cigarette/Vaping Use Never Used 04/15/23 13:25 PHQ-9: PHQ-9 Score PHQ-9: Total score 0 04/15/23 13:37 Depression Screening Interpretation: Negative Thrive Assessment: Date of Thrive Assessment Date Thrive assessed 07/31/22 04/15/23 13:25 Office Procedures Flu Questionnaire Does the patient have a severe egg allergy?: No Does the patient have severe life threatening allergies?: No Does the patient have a fever or illness today?: No Has the patient ever had Guillain-Early Branch Syndrome?: No Has the patient ever had any past reaction to a flu shot?: No Immunizations flu vacc [id number] 6mos up(PF) 60 mcg(15 mcgx4)/0.5 mL IM syringe Performing Provider: Kathryn Bhardwaj MD [facility] [place] [facility] Administered by: SHANE Hernandez on 04/15/23 13:50 Dose Route Admin Location Dispensed Lot Number Expiration Date 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 (2) Type 2 diabetes mellitus with hyperglycemia: Code(s): E11.65 - Type 2 diabetes mellitus with hyperglycemia Plan: Has been placed on Trulicity due to her diabetes not completely controlled. But with her at this age and with the side effect of not eating as well as nausea so will stop Trulicity and will continue just to monitor blood sugars (3) Dementia: Code(s): F03.90 - Unspecified dementia, unspecified severity, without behavioral disturbance, psychotic disturbance, mood disturbance, and anxiety Plan: Patient has been sleeping a lot will stop Aricept. Orders: Orders Comprehensive Met. Panel Today E11.65 - Type 2 diabetes mellitus with hyperglycemia IRON PROFILE Today E11.65 - Type 2 diabetes mellitus with hyperglycemia Vitamin B12 and Folate Today E11.65 - Type 2 diabetes mellitus with hyperglycemia Ferritin Today E11.65 - Type 2 diabetes mellitus with hyperglycemia Complete Blood Count Auto Diff Today E11.65 - Type 2 diabetes mellitus with hyperglycemia Thyroid Stimulating Hormone Today E11.65 - Type 2 diabetes mellitus with hyperglycemia Reticulocyte Count Today E11.65 - Type 2 diabetes mellitus with hyperglycemia UA CC w/rflx Micro + Cult Today E11.65 - Type 2 diabetes mellitus with hyperglycemia, R30.0 - Dysuria Influenza 5019-1002 Immunization Today Z23 - Encounter for immunization Medications: Refilled lidocaine 5% leave on most painful area for up to 12 hrs 1 patch topical DAILY 30 ea 4RF M54.50 - Low back pain, unspecified Discontinued dulaglutide (Trulicity) Discontinued Reason: Doctor's Order 1.5 mg (0.5 mL) subcut QWEEK 2 mL 3RF E11.65 - Type 2 diabetes mellitus with hyperglycemia donepezil Discontinued Reason: Doctor's Order 10 mg PO BEDTIME 30 tabs 1RF F02.80 - Dementia in other diseases classified elsewhere, unspecified severity, without behavioral disturbance, psychotic disturbance, mood disturbance, and anxiety, G30.1 - Alzheimer's disease with late onset Coding Level of Care Code Est Pt Level 4 (86716) Diagnoses Nausea R11.0 Type 2 diabetes mellitus with hyperglycemia E11.65 Late onset Alzheimer's dementia without behavioral disturbance F03.90 Additional Codes PHQ-9 - 15584 - PHQ-9 Billing: ([id number])
== END 2023-04-15 13:50 | disposition home or self-care (01) ==
PROVIDERS: PCP Internal Medicine; Visit Provider Internal Medicine
DX: R11.0 Nausea (principal); E11.65 Type 2 diabetes mellitus with hyperglycemia; F03.90 Unspecified dementia, unspecified severity, without behavioral disturbance, psychotic disturbance, mood disturbance, and anxiety; Z23 Encounter for immunization
CPT/HCPCS: 90471; 90686; 99214

== ENCOUNTER 2023-06-29 13:18 | Outpatient (AMB) | payer OTHER, SELFPAY ==
[2023-06-29 13:22] VITALS: BP 118/62; PULSE 57; O2SAT 94; BMI 23.6
--- NOTE | 2023-06-29 13:22 | MHC.PC.OV ---
Vital Signs 06/29/23 13:22 Height 5 ft 1 in Weight 125 lb 0.034 oz BMI 23.6 BP 118/62 Blood Pressure Location Lt brachial Position Sitting Pulse 57 Pulse Source Pulse Oximeter Pulse Oximetry (%) 94 Oxygen Delivery Method Room Air Intake Visit Reasons: 3mth f/u Public Message Service Supervisor Required: No Allergies No Known Allergies [No Known Allergies*] Allergy (Verified 06/29/23 13:22) Medication List - Last Reconciled 06/29/23 by Kathryn Bhardwaj MD acetaminophen 325 - 650 mg (1 - 2 x 325 mg) PO Q4-6H PRN [Adult pull ups As directed] atorvastatin 80 mg PO DAILY blood sugar diagnostic (FreeStyle Lite Strips) Three thimes a day blood-glucose meter (FreeStyle Lite Meter kit) 2 times a day cholecalciferol (vitamin D3) (Vitamin D3) 50 mcg PO DAILY diclofenac sodium 1% (Voltaren Arthritis Pain) 4 grams topical QID gabapentin 800 mg PO BID 90 days insulin glargine 14 units (0.14 mL) subcut DAILY 30 days lancets (FreeStyle Lancets) Twice times a day lidocaine 5% 1 patch topical DAILY linagliptin (Tradjenta) 5 mg PO DAILY metoprolol succinate ER 75 mg See Protocol PO BID@ miscellaneous medical supply As directed omeprazole 20 mg PO DAILY pen needle, diabetic (BD Ultra-Fine Esmer Pen Needle) As directed once daily quetiapine (Seroquel) 25 mg PO BEDTIME Tobacco use date assessed: 06/29/23 Fall risk assessment: No Falls in past year Last assessed Fall Risk: 06/29/23 Dental Screening Dental Screen Date: 06/29/23 HPI 3mth f/u HPI Details 87-year-old female with diabetes mellitus and dementia last seen in April 2023 concern about nausea because of Trulicity and this was discontinued. Patient is here for follow-up. [facility] Medical History Anemia Closed fracture of left hip Dementia Fall Fracture of femoral neck, left Gait instability GERD (gastroesophageal reflux disease) History of paroxysmal supraventricular tachycardia HTN (hypertension) Hypercholesterolemia Migraine Peripheral vascular disease PVC (premature ventricular contraction) Sinus tachycardia Subclinical hyperthyroidism SVT (supraventricular tachycardia) Transaminitis Vitamin D deficiency Surgical History History of cholecystectomy History of left hip replacement Hx of colonoscopy Family History Father No problems noted. Mother No problems noted. Social History Household Members: Family Household Members Other:: lives with adult children Housing: House Unable to assess alcohol history related to: Unknown Alcohol intake: never Patient Tobacco Use Status: Never used Tobacco e-Cigarette/Vaping Use: Never Used Second Hand Smoke Exposure: No Advance Directives Date on File: 05/15/21 service: No Current occupational status: unemployed and disabled Cognitive needs: Yes (wheel chair/cane) Hearing needs: Yes (hearing aide) Vision needs: Yes (glasses) Questionnaire Thrive Questionnaire Date Thrive assessed: 06/29/23 AUDIT C Alcohol Use Questionnaire (AUDIT-C) 1. How often do you have a drink containing alcohol?: Never 2. How many drinks containing alcohol do you have on a typical day when you are drinking?: 1 or 2 3. How often do you have six or more drinks on one occasion?: Never Total Score: 0 SUZIE-7 AMB Questionnaire SUZIE-7 Date SUZIE - 7 assessed: 06/29/23 Source: Developed by Drs. Eduardo Cortez, Aggie Baig, Wood Foote and colleagues, with an educational carine from [employer]. Physical exam (Primary Care) Vital Signs: Last Vital Signs Pulse 57 06/29/23 13:22 BP 118/62 06/29/23 13:22 Pulse Ox 94 06/29/23 13:22 Oxygen Delivery Method Room Air 06/29/23 13:22 BMI result Body Mass Index 23.6 Tobacco/Smoking Status: Tobacco use Status Tobacco use date assessed 06/29/23 06/29/23 13:23 Patient Tobacco Use Status Never used Tobacco 06/29/23 13:23 e-Cigarette/Vaping Use Never Used 06/29/23 13:23 Thrive Assessment: Date of Thrive Assessment Date Thrive assessed 06/29/23 06/29/23 13:23 Const General: alert; No acute distress Eyes Conjunctivae: conjunctivae normal Resp Auscultation: clear to auscultation bilaterally Cardio Rate: regular rate Rhythm: regular rhythm GI Inspection: Yes normal to inspection Extrem General: Yes normal to inspection and No edema Results AMB Hemoglobin A1c AMB Hemoglobin A1c 11.0 % Last Edit by ZHANNA Resendez on 06/29/23 13:41 Results Reviewed Results Reviewed: Laboratory Last Values Hgb A1c (Clinic) 11.0 % (4.0-6.0) H 06/29/23 13:06 Assessment and Plan Assessment & Plan (1) Type 2 diabetes mellitus with hyperglycemia: Code(s): E11.65 - Type 2 diabetes mellitus with hyperglycemia Plan: Decrease the amount of carbohydrate intake, pasta, bread, rice and potatoes are all sugar and that is aside from all the sweet stuff, remember that fruits are good but they are Sweet also. Hemoglobin A1c goal of less than 7.0. Patient was very nauseous the last time and was taken off Trulicity. Presently on Tradjenta 5 mg once a day insulin at 14 units once a day. advised to check the BS TID pre meal and - will adjust insulin (2) Hypercholesterolemia: Code(s): E78.00 - Pure hypercholesterolemia, unspecified Plan: Avoid fried foods, chicken skin, eggs, butter margarine, pastries and meat. Be it pork or beef they have a lot of cholesterol November 2022 last blood work at goal with atorvastatin 80 mg once a day (3) GERD (gastroesophageal reflux disease): Code(s): K21.9 - Gastro-esophageal reflux disease without esophagitis Plan: Avoid the foods that causes that usually spicy foods, tomato products, juices, coffee, soda and foods that your sensitive to. After eating do not lie down, allow 3-4 hours before in lie down. And keep the head of bed above 30 degrees to avoid the acid from going up. (4) HTN (hypertension): Code(s): I10 - Essential (primary) hypertension Qualifiers: Hypertension type: essential hypertension Qualified Code(s): I10 - Essential (primary) hypertension Plan: Continue with blood pressure medication. Decrease salt intake and exercise patient takes metoprolol 75 mg twice a day (5) Dementia: Code(s): F03.90 - Unspecified dementia, unspecified severity, without behavioral disturbance, psychotic disturbance, mood disturbance, and anxiety Plan: Conservative management. Orders: Orders AMB Hemoglobin A1c Today E11.65 - Type 2 diabetes mellitus with hyperglycemia Medications: New empagliflozin (Jardiance) 10 mg PO DAILY 30 tabs 3RF E11.65 - Type 2 diabetes mellitus with hyperglycemia Changed From blood sugar diagnostic (FreeStyle Lite Strips) 2 times a day 50 ea 11RF E11.65 - Type 2 diabetes mellitus with hyperglycemia To blood sugar diagnostic (FreeStyle Lite Strips) Three thimes a day 100 ea 11RF E11.65 - Type 2 diabetes mellitus with hyperglycemia Coding Level of Care Code Est Pt Level 4 (03506) Diagnoses Type 2 diabetes mellitus with hyperglycemia E11.65 Hypercholesterolemia E78.00 GERD (gastroesophageal reflux disease) K21.9 Essential hypertension I10 Hypertension type: essential hypertension Late onset Alzheimer's dementia without behavioral disturbance F03.90
== END 2023-06-29 14:21 | disposition home or self-care (01) ==
PROVIDERS: PCP Internal Medicine; Visit Provider Internal Medicine
DX: E11.65 Type 2 diabetes mellitus with hyperglycemia (principal); F03.90 Unspecified dementia, unspecified severity, without behavioral disturbance, psychotic disturbance, mood disturbance, and anxiety; E78.00 Pure hypercholesterolemia, unspecified; K21.9 Gastro-esophageal reflux disease without esophagitis; I10 Essential (primary) hypertension
CPT/HCPCS: 83036; 99214

== ENCOUNTER 2023-07-15 14:50 | Outpatient (AMB) | payer OTHER, SELFPAY ==
[2023-07-15 14:57] VITALS: BP 124/68; PULSE 63; O2SAT 94; BMI 24.2
--- NOTE | 2023-07-15 14:57 | MHC.PC.OV ---
Vital Signs 07/15/23 14:57 Height 5 ft 1 in Weight 127 lb 13.89 oz BMI 24.2 BP 124/68 Blood Pressure Location Lt brachial Position Sitting Pulse 63 Pulse Source Pulse Oximeter Pulse Oximetry (%) 94 Oxygen Delivery Method Room Air Intake Visit Reasons: DM Commercial Loan Coordinator Required: No Allergies No Known Allergies [No Known Allergies*] Allergy (Verified 07/15/23 14:58) Tobacco use date assessed: 07/15/23 Fall risk assessment: No Falls in past year Last assessed Fall Risk: 07/15/23 Dental Screening Dental Screen Date: 07/15/23 HPI DM HPI Details 87-year-old female with uncontrolled diabetes mellitus hypercholesterolemia GERD hypertension and dementia last seen in June 29 and had patient come here because of uncontrolled A1c 11 patient was advised to monitor blood sugar and adjust insulin patient is on Jardiance 10 mg once a day Lantus at 14 units once a day Tradjenta 5 mg once a day review of the blood sugar showed a.m. blood sugars of 210, 189, 221, for the noon time 175, 257, 175 family was able to check her blood sugar before breakfast and before lunch only. Discussed with the family on the need to check blood sugars before dinner if she wants only to check twice then they can before breakfast 1 day before dinner 1 day before breakfast 1 day. [facility] Medical History Anemia Closed fracture of left hip Dementia Fall Fracture of femoral neck, left Gait instability GERD (gastroesophageal reflux disease) History of paroxysmal supraventricular tachycardia HTN (hypertension) Hypercholesterolemia Migraine Peripheral vascular disease PVC (premature ventricular contraction) Sinus tachycardia Subclinical hyperthyroidism SVT (supraventricular tachycardia) Transaminitis Vitamin D deficiency Surgical History History of cholecystectomy History of left hip replacement Hx of colonoscopy Family History Father No problems noted. Mother No problems noted. Social History Household Members: Family Household Members Other:: lives with adult children Housing: House Unable to assess alcohol history related to: Unknown Alcohol intake: never Patient Tobacco Use Status: Never used Tobacco e-Cigarette/Vaping Use: Never Used Second Hand Smoke Exposure: No Advance Directives Date on File: 05/15/21 service: No Current occupational status: unemployed and disabled Cognitive needs: Yes (wheel chair/cane) Hearing needs: Yes (hearing aide) Vision needs: Yes (glasses) Questionnaire Thrive Questionnaire Date Thrive assessed: 06/29/23 AUDIT C Alcohol Use Questionnaire (AUDIT-C) 1. How often do you have a drink containing alcohol?: Never 2. How many drinks containing alcohol do you have on a typical day when you are drinking?: 1 or 2 3. How often do you have six or more drinks on one occasion?: Never Total Score: 0 SUZIE-7 AMB Questionnaire SUZIE-7 Date SUZIE - 7 assessed: 06/29/23 Source: Developed by Drs. Eduardo Cortez, Aggie Baig, Wood Foote and colleagues, with an educational carine from [employer]. Physical exam (Primary Care) Vital Signs: Last Vital Signs Pulse 63 07/15/23 14:57 BP 124/68 07/15/23 14:57 Pulse Ox 94 07/15/23 14:57 Oxygen Delivery Method Room Air 07/15/23 14:57 BMI result Body Mass Index 24.2 Tobacco/Smoking Status: Tobacco use Status Tobacco use date assessed 07/15/23 07/15/23 14:58 Patient Tobacco Use Status Never used Tobacco 07/15/23 14:58 e-Cigarette/Vaping Use Never Used 07/15/23 14:58 Thrive Assessment: Date of Thrive Assessment Date Thrive assessed 06/29/23 07/15/23 14:58 Const General: alert; No acute distress Eyes Conjunctivae: conjunctivae normal Resp Auscultation: clear to auscultation bilaterally Cardio Rate: regular rate Rhythm: regular rhythm GI Inspection: Yes normal to inspection Extrem General: Yes normal to inspection and No edema Assessment and Plan Assessment & Plan (1) Type 2 diabetes mellitus with hyperglycemia: Code(s): E11.65 - Type 2 diabetes mellitus with hyperglycemia Plan: Decrease the amount of carbohydrate intake, pasta, bread, rice and potatoes are all sugar and that is aside from all the sweet stuff, remember that fruits are good but they are Sweet also. Hemoglobin A1c goal of less than 7.0. Patient is on multiple medications Tradjenta 5 mg once a day Lantus at 14 units once a day Jardiance 10 mg once a day so with this advised patient to increase the Lantus to 17 units and monitor blood sugars. (2) Hypercholesterolemia: Code(s): E78.00 - Pure hypercholesterolemia, unspecified Plan: Avoid fried foods, chicken skin, eggs, butter margarine, pastries and meat. Be it pork or beef they have a lot of cholesterol LDL goal of less than 100. Patient on atorvastatin 80 mg once a day (3) GERD (gastroesophageal reflux disease): Code(s): K21.9 - Gastro-esophageal reflux disease without esophagitis Plan: Avoid the foods that causes that usually spicy foods, tomato products, juices, coffee, soda and foods that your sensitive to. After eating do not lie down, allow 3-4 hours before in lie down. And keep the head of bed above 30 degrees to avoid the acid from going up. (4) HTN (hypertension): Code(s): I10 - Essential (primary) hypertension Qualifiers: Hypertension type: essential hypertension Qualified Code(s): I10 - Essential (primary) hypertension Plan: Continue with blood pressure medication. Decrease salt intake and exercise taking metoprolol 75 mg twice a day (5) Dementia: Code(s): F03.90 - Unspecified dementia, unspecified severity, without behavioral disturbance, psychotic disturbance, mood disturbance, and anxiety Plan: Supportive treatment Medications: Changed From insulin glargine 14 units (0.14 mL) subcut DAILY 30 days 15 mL 12RF E11.65 - Type 2 diabetes mellitus with hyperglycemia To insulin glargine 17 units (0.17 mL) subcut DAILY 30 days 5.1 mL 12RF E11.65 - Type 2 diabetes mellitus with hyperglycemia Coding Level of Care Code Est Pt Level 4 (94279) Diagnoses Type 2 diabetes mellitus with hyperglycemia E11.65 Hypercholesterolemia E78.00 GERD (gastroesophageal reflux disease) K21.9 Essential hypertension I10 Hypertension type: essential hypertension Late onset Alzheimer's dementia without behavioral disturbance F03.90
== END 2023-07-15 16:06 | disposition home or self-care (01) ==
PROVIDERS: PCP Internal Medicine; Visit Provider Internal Medicine
DX: E11.65 Type 2 diabetes mellitus with hyperglycemia (principal); F03.90 Unspecified dementia, unspecified severity, without behavioral disturbance, psychotic disturbance, mood disturbance, and anxiety; E78.00 Pure hypercholesterolemia, unspecified; K21.9 Gastro-esophageal reflux disease without esophagitis; I10 Essential (primary) hypertension
CPT/HCPCS: 99214

== ENCOUNTER 2023-08-19 13:50 | Outpatient (AMB) | payer OTHER, SELFPAY ==
[2023-08-19 13:51] VITALS: BP 110/58; PULSE 57; O2SAT 90; BMI 22.9
--- NOTE | 2023-08-19 13:51 | A.OFFPC_ITS ---
Vital Signs 08/19/23 13:51 Height 5 ft 1 in Weight 121 lb 4.068 oz BMI 22.9 BP 110/58 L Blood Pressure Location Lt brachial Position Sitting Pulse 57 Pulse Source Pulse Oximeter Pulse Oximetry (%) 90 L Oxygen Delivery Method Room Air Intake Visit Reasons: 4 week f/u Allergies No Known Allergies [No Known Allergies*] Allergy (Verified 08/19/23 13:51) Tobacco use date assessed: 07/15/23 Fall risk assessment: No Falls in past year Last assessed Fall Risk: 08/19/23 Dental Screening Dental Screen Date: 08/19/23 Did you have a dental visit in the last 12 months?: Yes Did you have a dental problem in the last 6 months where you did not have access to dental care?: No Was dental information given to patient?: Patient has dentist HPI 4 week f/u HPI Details 87 year old male with diabetes mellitus who is A1c has been in 11 patient was advised to increase the insulin and advised to follow-up today she is on Tradjenta 5 mg once a day Lantus increased to 17 units once a day Jardiance 10 mg once a day. Family brought in the machine but all the blood fountain gar numbers are just in the morning which were normal. Patient's family was not able to get the blood sugar at different time. Meanwhile blood pressure remains to be controlled and cholesterol last tested in November 2022 patient is advised to follow-up next month [facility] Medical History Anemia Closed fracture of left hip Dementia Fall Fracture of femoral neck, left Gait instability GERD (gastroesophageal reflux disease) History of paroxysmal supraventricular tachycardia HTN (hypertension) Hypercholesterolemia Migraine Peripheral vascular disease PVC (premature ventricular contraction) Sinus tachycardia Subclinical hyperthyroidism SVT (supraventricular tachycardia) Transaminitis Vitamin D deficiency Surgical History History of cholecystectomy History of left hip replacement Hx of colonoscopy Family History Father No problems noted. Mother No problems noted. Social History Household Members: Family Household Members Other:: lives with adult children Housing: House Unable to assess alcohol history related to: Unknown Alcohol intake: never Patient Tobacco Use Status: Never used Tobacco e-Cigarette/Vaping Use: Never Used Second Hand Smoke Exposure: No Advance Directives Date on File: 05/15/21 service: No Current occupational status: unemployed and disabled Cognitive needs: Yes (wheel chair/cane) Hearing needs: Yes (hearing aide) Vision needs: Yes (glasses) Questionnaire PHQ-9 Over the last 2 weeks, how often have you been bothered by any of the following problems? 1. Little interest or pleasure in doing things: not at all 2. Feeling down, depressed, or hopeless: not at all 3. Trouble falling or staying asleep, or sleeping too much: not at all 4. Feeling tired or having little energy: not at all 5. Poor appetite or overeating: not at all 6. Feeling bad about yourself - or that you are a failure or have let yourself or your family down: not at all 7. Trouble concentrating on things, such as reading the newspaper or watching television: not at all 8. Moving or speaking so slowly that other people could have noticed. Or the opposite - being so fidgety or restless that you have been moving around a lot more than usual: not at all 9. Thoughts that you would be better off or of hurting yourself in some way: not at all Total score: 0 Depression Screening Interpretation: Negative Depression Screening Done: Yes Source: Developed by Drs. Eduardo Cortez, Aggie Baig, Wood Foote and colleagues, with an educational carine from [employer]. Thrive Questionnaire Date Thrive assessed: 06/29/23 AUDIT C Alcohol Use Questionnaire (AUDIT-C) 1. How often do you have a drink containing alcohol?: Never 2. How many drinks containing alcohol do you have on a typical day when you are drinking?: 1 or 2 3. How often do you have six or more drinks on one occasion?: Never Total Score: 0 SUZIE-7 AMB Questionnaire SUZIE-7 Date SUZIE - 7 assessed: 06/29/23 Source: Developed by Drs. Eduardo Cortez, Aggie Baig, Wood Foote and colleagues, with an educational carine from [employer]. Physical exam (Primary Care) Vital Signs: Last Vital Signs Pulse 57 08/19/23 13:51 BP 110/58 L 08/19/23 13:51 Pulse Ox 90 L 08/19/23 13:51 Oxygen Delivery Method Room Air 08/19/23 13:51 BMI result Body Mass Index 22.9 Tobacco/Smoking Status: Tobacco use Status Tobacco use date assessed 07/15/23 08/19/23 13:52 Patient Tobacco Use Status Never used Tobacco 08/19/23 13:52 e-Cigarette/Vaping Use Never Used 08/19/23 13:52 PHQ-9: PHQ-9 Score PHQ-9: Total score 0 08/19/23 13:52 Depression Screening Interpretation: Negative Thrive Assessment: Date of Thrive Assessment Date Thrive assessed 06/29/23 08/19/23 13:52 Const General: alert; No acute distress Eyes Conjunctivae: conjunctivae normal Resp Auscultation: clear to auscultation bilaterally Cardio Rate: regular rate Rhythm: regular rhythm GI Inspection: Yes normal to inspection Extrem General: Yes normal to inspection and No edema Assessment and Plan Assessment & Plan (1) Type 2 diabetes mellitus with hyperglycemia: Code(s): E11.65 - Type 2 diabetes mellitus with hyperglycemia Plan: Decrease the amount of carbohydrate intake, pasta, bread, rice and potatoes are all sugar and that is aside from all the sweet stuff, remember that fruits are good but they are Sweet also. Hemoglobin A1c goal of less than 7.0. Patient is on Jardiance 10 mg once a day Lantus 17 units once a day Tradjenta 5 mg once a day (2) HTN (hypertension): Code(s): I10 - Essential (primary) hypertension Qualifiers: Hypertension type: essential hypertension Qualified Code(s): I10 - Essential (primary) hypertension Plan: Continue with blood pressure medication. Decrease salt intake and exercise patient is on metoprolol 75 mg once a day (3) Hypercholesterolemia: Code(s): E78.00 - Pure hypercholesterolemia, unspecified Plan: Avoid fried foods, chicken skin, eggs, butter margarine, pastries and meat. Be it pork or beef they have a lot of cholesterol November 2022 last blood work LDL goal of less than 100. (4) Dementia: Code(s): F03.90 - Unspecified dementia, unspecified severity, without behavioral disturbance, psychotic disturbance, mood disturbance, and anxiety Coding Level of Care Code Est Pt Level 4 (42038) Diagnoses Type 2 diabetes mellitus with hyperglycemia E11.65 Essential hypertension I10 Hypertension type: essential hypertension Hypercholesterolemia E78.00 Late onset Alzheimer's dementia without behavioral disturbance F03.90 Additional Codes PHQ-9 - 09183 - PHQ-9 Billing: ([id number])
== END 2023-08-19 14:13 | disposition home or self-care (01) ==
PROVIDERS: PCP Internal Medicine; Visit Provider Internal Medicine
DX: E11.65 Type 2 diabetes mellitus with hyperglycemia (principal); F03.90 Unspecified dementia, unspecified severity, without behavioral disturbance, psychotic disturbance, mood disturbance, and anxiety; I10 Essential (primary) hypertension; E78.00 Pure hypercholesterolemia, unspecified
CPT/HCPCS: 99214

== ENCOUNTER 2024-03-06 12:52 | Outpatient (AMB) | payer OTHER, SELFPAY ==
--- NOTE | 2024-03-06 13:08 | MHC.PC.OV ---
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 Last blood work was in 11/24/2022. [facility] Medical History Anemia Closed fracture of left hip Dementia Fall Fracture of femoral neck, left Gait instability GERD (gastroesophageal reflux disease) History of paroxysmal supraventricular tachycardia HTN (hypertension) Hypercholesterolemia Migraine Peripheral vascular disease PVC (premature ventricular contraction) Sinus tachycardia Subclinical hyperthyroidism SVT (supraventricular tachycardia) Transaminitis Vitamin D deficiency Surgical History History of left hip replacement Hx of colonoscopy History of cholecystectomy Family History Father No problems noted. Mother No problems noted. Social History Household Members: Family Household Members Other:: lives with adult children Housing: House Unable to assess alcohol history related to: Unknown Alcohol intake: never Patient Tobacco Use Status: Never used Tobacco e-Cigarette/Vaping Use: Never Used Second Hand Smoke Exposure: No Advance Directives Date on File: 05/15/21 service: No Current occupational status: unemployed and disabled Cognitive needs: Yes (wheel chair/cane) Hearing needs: Yes (hearing aide) Vision needs: Yes (glasses) Questionnaire Thrive Questionnaire Date Thrive assessed: 06/29/23 Are you currently unemployed and looking for a job?: Yes SUZIE-7 AMB Questionnaire SUZIE-7 Date SUZIE - 7 assessed: 06/29/23 Source: Developed by Drs. Eduardo Cortez, Aggie Baig, Wood Foote and colleagues, with an educational carine from [employer]. Physical exam (Primary Care) Vital Signs: Last Vital Signs Pulse 64 03/06/24 13:12 BP 120/66 03/06/24 13:12 Pulse Ox 99 03/06/24 13:12 Oxygen Delivery Method Room Air 03/06/24 13:12 BMI result Body Mass Index 23.2 Tobacco/Smoking Status: Tobacco use Status Tobacco use date assessed 07/15/23 03/06/24 13:09 Patient Tobacco Use Status Never used Tobacco 03/06/24 13:09 e-Cigarette/Vaping Use Never Used 03/06/24 13:09 Thrive Assessment: Date of Thrive Assessment Date Thrive assessed 06/29/23 03/06/24 13:09 Const General: alert; No acute distress Eyes Conjunctivae: conjunctivae normal Resp Auscultation: clear to auscultation bilaterally Cardio Rate: regular rate Rhythm: regular rhythm GI Inspection: Yes normal to inspection Extrem General: Yes normal to inspection and No edema Results AMB Hemoglobin A1c AMB Hemoglobin A1c 7.5 % Last Edit by ZHANNA Multani on 03/06/24 13:21 Results Reviewed Results Reviewed: Laboratory Last Values Hgb A1c (Clinic) 7.5 % (4.0-6.0) H 03/06/24 13:05 Assessment and Plan Assessment & Plan (1) Type 2 diabetes mellitus with hyperglycemia: Code(s): E11.65 - Type 2 diabetes mellitus with hyperglycemia Plan: Decrease the amount of carbohydrate intake, pasta, bread, rice and potatoes are all sugar and that is aside from all the sweet stuff, remember that fruits are good but they are Sweet also. Hemoglobin A1c goal of less than 7.0 on Jardiance 10 mg once a day insulin at 17 units once a day Tradjenta 5 mg once a day (2) Hypercholesterolemia: Code(s): E78.00 - Pure hypercholesterolemia, unspecified Plan: Avoid fried foods, chicken skin, eggs, butter margarine, pastries and meat. Be it pork or beef they have a lot of cholesterol LDL goal of less than 100 and triglyceride of less than 150 on atorvastatin 80 mg once a day will need blood work. (3) GERD (gastroesophageal reflux disease): Code(s): K21.9 - Gastro-esophageal reflux disease without esophagitis Plan: Avoid the foods that causes that usually spicy foods, tomato products, juices, coffee, soda and foods that your sensitive to. After eating do not lie down, allow 3-4 hours before in lie down. And keep the head of bed above 30 degrees to avoid the acid from going up. (4) HTN (hypertension): Code(s): I10 - Essential (primary) hypertension Qualifiers: Hypertension type: essential hypertension Qualified Code(s): I10 - Essential (primary) hypertension Plan: Continue with blood pressure medication. Decrease salt intake and exercise patient is on metoprolol 75 mg twice a day (5) Dementia: Code(s): F03.90 - Unspecified dementia, unspecified severity, without behavioral disturbance, psychotic disturbance, mood disturbance, and anxiety Plan: Supportive treatment Orders: Orders Comprehensive Met. Panel Today E11.65 - Type 2 diabetes mellitus with hyperglycemia Creatinine Urine Today E11.65 - Type 2 diabetes mellitus with hyperglycemia Lipid Panel Today E11.65 - Type 2 diabetes mellitus with hyperglycemia, E78.00 - Pure hypercholesterolemia, unspecified Thyroid Stimulating Hormone Today E11.65 - Type 2 diabetes mellitus with hyperglycemia Vitamin B12 and Folate Today E11.65 - Type 2 diabetes mellitus with hyperglycemia Hemoglobin A1c Today E11.65 - Type 2 diabetes mellitus with hyperglycemia AMB Hemoglobin A1c Today E11.65 - Type 2 diabetes mellitus with hyperglycemia Complete Blood Count Auto Diff Today E11.65 - Type 2 diabetes mellitus with hyperglycemia Microalbumin, Random (w Creat) Today E11.65 - Type 2 diabetes mellitus with hyperglycemia Free T4 (Free Thyroxine) Today E11.65 - Type 2 diabetes mellitus with hyperglycemia Vitamin D 25-OH Total Today E11.65 - Type 2 diabetes mellitus with hyperglycemia Referrals Ophthalmology Referral E11.65 - Type 2 diabetes mellitus with hyperglycemia Coding Level of Care Code Est Pt Level 4 (70310) Diagnoses Type 2 diabetes mellitus with hyperglycemia E11.65 Hypercholesterolemia E78.00 GERD (gastroesophageal reflux disease) K21.9 Essential hypertension I10 Hypertension type: essential hypertension Late onset Alzheimer's dementia without behavioral disturbance F03.90
[2024-03-06 13:12] VITALS: BP 120/66; PULSE 64; O2SAT 99; BMI 23.2
== END 2024-03-06 13:52 | disposition home or self-care (01) ==
PROVIDERS: PCP Internal Medicine; Visit Provider Internal Medicine
DX: E11.65 Type 2 diabetes mellitus with hyperglycemia (principal); F03.90 Unspecified dementia, unspecified severity, without behavioral disturbance, psychotic disturbance, mood disturbance, and anxiety; E78.00 Pure hypercholesterolemia, unspecified; K21.9 Gastro-esophageal reflux disease without esophagitis; I10 Essential (primary) hypertension

== ENCOUNTER → 2024-03-06 12:52 | Outpatient (BNVA) | payer OTHER, SELFPAY | PROVIDERS: PCP Internal Medicine; Visit Provider Internal Medicine | DX: E11.65 Type 2 diabetes mellitus with hyperglycemia (principal); E78.00 Pure hypercholesterolemia, unspecified; K21.9 Gastro-esophageal reflux disease without esophagitis | CPT/HCPCS: 83036; 99212 ==

== ENCOUNTER 2024-06-16 14:15 | Outpatient (AMB) | payer OTHER, SELFPAY ==
[2024-06-16 14:17] VITALS: BP 120/82; PULSE 68; O2SAT 95; BMI 23.1
--- NOTE | 2024-06-16 14:17 | MHC.PC.OV ---
Vital Signs 06/16/24 14:17 Height 5 ft 1 in Weight 122 lb 2.177 oz BMI 23.1 BP 120/82 Blood Pressure Location Lt brachial Position Sitting Pulse 68 Pulse Source Pulse Oximeter Pulse Oximetry (%) 95 Oxygen Delivery Method Room Air Intake Visit Reasons: DM Submarine Element Coordinator Required: No Accompanied by: Self / Same As Patient Allergies No Known Allergies [No Known Allergies*] Allergy (Verified 06/16/24 14:17) Tobacco use date assessed: 06/16/24 Fall risk assessment: No Falls in past year Last assessed Fall Risk: 06/16/24 Dental Screening Dental Screen Date: 06/16/24 Did you have a dental visit in the last 12 months?: No Did you have a dental problem in the last 6 months where you did not have access to dental care?: No Was dental information given to patient?: No HPI DM HPI Details The patient is an 88-year-old female presenting with dermatological irritation and for a routine wellness check. The patient has a history of dementia, and her caregiver expressed concerns about skin redness due to frequent scrubbing. Dermatitis was noted, exacerbated by the patient's habit of frequently rubbing the skin, leading to redness. The caregiver has been applying a cream for relief, with instructions to be cautious not to apply it near the eyes due to potential rubbing. The patient also has a past medical history of hypercholesterolemia, diabetes mellitus, and hypertension. Skin and cholesterol levels were last assessed a couple of years ago, and her latest blood glucose measurement was reported at 7.3, which was not addressed during this visit. She has been utilizing a walking aid, demonstrating some degree of mobility, and has been monitored for pressure ulcers, with none being reported. The caregiver reported previous use of vapor rub which agitated the skin further and was subsequently discontinued. A new concern was voiced about her back pain, which has been managed with pads, but reports of requiring pain relief are ongoing. The patient did not receive her annual influenza vaccination and it was scheduled during this visit. Hearing impairment was noted, as she often struggles to hear during conversations. [facility] Medical History Anemia Closed fracture of left hip Dementia Fall Fracture of femoral neck, left Gait instability GERD (gastroesophageal reflux disease) History of paroxysmal supraventricular tachycardia HTN (hypertension) Hypercholesterolemia Migraine Peripheral vascular disease PVC (premature ventricular contraction) Sinus tachycardia Subclinical hyperthyroidism SVT (supraventricular tachycardia) Transaminitis Vitamin D deficiency Surgical History History of left hip replacement Hx of colonoscopy History of cholecystectomy Family History Father No problems noted. Mother No problems noted. Social History Household Members: Family Household Members Other:: lives with adult children Housing: House Unable to assess alcohol history related to: Unknown Alcohol intake: never Patient Tobacco Use Status: Never used Tobacco e-Cigarette/Vaping Use: Never Used Second Hand Smoke Exposure: No Advance Directives Date on File: 05/15/21 service: No Current occupational status: unemployed and disabled Cognitive needs: Yes (wheel chair/cane) Hearing needs: Yes (hearing aide) Vision needs: Yes (glasses) Questionnaire PHQ-9 Over the last 2 weeks, how often have you been bothered by any of the following problems? 1. Little interest or pleasure in doing things: not at all 2. Feeling down, depressed, or hopeless: not at all 3. Trouble falling or staying asleep, or sleeping too much: not at all 4. Feeling tired or having little energy: not at all 5. Poor appetite or overeating: not at all 6. Feeling bad about yourself - or that you are a failure or have let yourself or your family down: not at all 7. Trouble concentrating on things, such as reading the newspaper or watching television: not at all 8. Moving or speaking so slowly that other people could have noticed. Or the opposite - being so fidgety or restless that you have been moving around a lot more than usual: not at all 9. Thoughts that you would be better off or of hurting yourself in some way: not at all Total score: 0 Depression Screening Interpretation: Negative Depression Screening Done: Yes Source: Developed by Drs. Eduardo Cortez, Aggie Baig, Wood Foote and colleagues, with an educational carine from [employer]. Thrive Questionnaire Date Thrive assessed: 06/16/24 I am a: Patient What is your living situation today?: I have a steady place to live Within the past 12 months, did the food you bought not last and you didn't have the money to get more?: Never true Within the past 12 months, did you worry whether your food would run out before you got money to buy more?: Never true Do you have trouble paying for medicines?: No Do you have trouble getting transportation to medical appointments?: No Do you have trouble paying your heating and electricity bill?: No Do you have trouble taking care of your child, family member or friend?: No Do you have trouble with day-to-day activities such as bathing, preparing meals, shopping, managing finances, etc.?: No Are you currently unemployed and looking for a job?: Yes Are you interested in more education?: No Please select the resources that you would like help with: None Currently or been in a relationship where the following occur: No concerns reported THRIVE Score: 0 AUDIT C Alcohol Use Questionnaire (AUDIT-C) 1. How often do you have a drink containing alcohol?: Never 2. How many drinks containing alcohol do you have on a typical day when you are drinking?: 1 or 2 3. How often do you have six or more drinks on one occasion?: Never Total Score: 0 SUZIE-7 AMB Questionnaire SUZIE-7 Date SUZIE - 7 assessed: 06/16/24 Feeling nervous, anxious, or on edge: 0 = Not at all Not being able to stop or control worryin = Not at all Worrying too much about different things: 0 = Not at all Trouble relaxin = Not at all Being so restless that it is hard to sit still: 0 = Not at all Becoming easily annoyed or irritable: 0 = Not at all Feeling afraid as if something awful might happen: 0 = Not at all Total SUZIE-7 score (0-4 normal; 5-9 mild; 10-14 moderate; 15-21 severe): 0 Source: Developed by Drs. Eduardo Cortez, Aggie Baig, Wood Foote and colleagues, with an educational carine from [employer]. Physical exam (Primary Care) Vital Signs: Last Vital Signs Pulse 68 06/16/24 14:17 BP 120/82 06/16/24 14:17 Pulse Ox 95 06/16/24 14:17 Oxygen Delivery Method Room Air 06/16/24 14:17 BMI result Body Mass Index 23.1 Tobacco/Smoking Status: Tobacco use Status Tobacco use date assessed 06/16/24 06/16/24 14:20 Patient Tobacco Use Status Never used Tobacco 06/16/24 14:20 e-Cigarette/Vaping Use Never Used 06/16/24 14:20 PHQ-9: PHQ-9 Score PHQ-9: Total score 0 06/16/24 14:35 Depression Screening Interpretation: Negative Thrive Assessment: Date of Thrive Assessment Date Thrive assessed 06/16/24 06/16/24 14:20 Currently or been in a relationship where the following occur: No concerns reported Const General: alert; No acute distress Eyes Conjunctivae: conjunctivae normal Resp Auscultation: clear to auscultation bilaterally Cardio Rate: regular rate Rhythm: regular rhythm GI Inspection: Yes normal to inspection Extrem General: Yes normal to inspection and No edema Office Procedures Flu Questionnaire Does the patient have a severe egg allergy?: No Does the patient have severe life threatening allergies?: No Does the patient have a fever or illness today?: No Has the patient ever had Guillain-Crowell Syndrome?: No Has the patient ever had any past reaction to a flu shot?: No Results AMB Hemoglobin A1c AMB Hemoglobin A1c 7.3 % Last Edit by ZHANNA Guerin on 06/16/24 14:37 Immunizations Fluarix Triv [id number] (PF) 45 mcg (15 mcg x 3)/0.5 mL IM syringe Performing Provider: Kathryn Bhardwaj MD [facility] Administered by: ZHANNA Guerin on 06/16/24 14:44 Dose Route Admin Location Dispensed Lot Number Expiration Date NDC Principal Biostatistician 0.5 mL IM Left Deltoid 0.5 mL [id number] 12/04/24 [id number] [employer] VIS Given Date VIS Provided VIS Publication Date 06/16/24 Single Vaccine 21 Eligibility Eligibility Date Funding Source Not [facility] Eligible 06/16/24 Private Results Reviewed Results Reviewed: Laboratory Last Values Hgb A1c (Clinic) 7.3 % (4.0-6.0) H 06/16/24 14:20 Coding Level of Care Code Est Pt Level 4 (35352) Complex EM visit Add On G2211 Diagnoses Type 2 diabetes mellitus with hyperglycemia E11.65 Hypercholesterolemia E78.00 GERD (gastroesophageal reflux disease) K21.9 Essential hypertension I10 Hypertension type: essential hypertension Late onset Alzheimer's dementia without behavioral disturbance F03.90 Allergic contact dermatitis L23.9 Assessment & Plan Assessment & Plan (1) Type 2 diabetes mellitus with hyperglycemia: Code(s): E11.65 - Type 2 diabetes mellitus with hyperglycemia Category: Medical Plan: Decrease the amount of carbohydrate intake, pasta, bread, rice and potatoes are all sugar and that is aside from all the sweet stuff, remember that fruits are good but they are Sweet also. Hemoglobin A1c goal of less than 7.0 patient on Jardiance 10 mg once a day glargine insulin Tradjenta 5 mg once a day. (2) Hypercholesterolemia: Code(s): E78.00 - Pure hypercholesterolemia, unspecified Category: Medical Plan: Avoid fried foods, chicken skin, eggs, butter margarine, pastries and meat. Be it pork or beef they have a lot of cholesterol patient needs blood work and is on atorvastatin 80 mg once a day (3) GERD (gastroesophageal reflux disease): Code(s): K21.9 - Gastro-esophageal reflux disease without esophagitis Category: Medical Plan: Avoid the foods that causes that usually spicy foods, tomato products, juices, coffee, soda and foods that your sensitive to. After eating do not lie down, allow 3-4 hours before in lie down. And keep the head of bed above 30 degrees to avoid the acid from going up. (4) HTN (hypertension): Code(s): I10 - Essential (primary) hypertension Category: Medical Qualifiers: Hypertension type: essential hypertension Qualified Code(s): I10 - Essential (primary) hypertension Plan: Continue with blood pressure medication. Decrease salt intake and exercise patient is on metoprolol 75 mg twice a day (5) Dementia: Code(s): F03.90 - Unspecified dementia, unspecified severity, without behavioral disturbance, psychotic disturbance, mood disturbance, and anxiety Category: Medical Plan: Supportive treatment (6) Allergic contact dermatitis: Comment: fore head Code(s): L23.9 - Allergic contact dermatitis, unspecified cause Category: Medical Plan: call if wants a cream for this Plan - Continue monitoring and management of dementia with caregiver support. - Avoidance of irritants and rubbing to manage dermatological irritation. Consideration of topical corticosteroid cream if needed to alleviate dermatitis to be cautiously administered avoiding contact with eyes. - Regular assessment of blood glucose levels and management of Diabetes Mellitus with medication adherence. - Remain on current antihypertensive medications with periodic blood pressure checks as stable readings are noted. - Recommend use of hearing aids to assist with hearing impairment. - Back pain management with non-pharmacological approaches, avoid NSAIDs or further pharmacotherapy unless necessary, reassess effectiveness periodically. - Administer influenza vaccination as planned. - Continue regular monitoring of lipid levels and current cholesterol medication adherence. Orders: Orders AMB Hemoglobin A1c Today Z13.9 - Encounter for screening, unspecified Influenza [id number] Immunization Today Z23 - Encounter for immunization
== END 2024-06-16 14:47 | disposition home or self-care (01) ==
PROVIDERS: PCP Internal Medicine; Visit Provider Internal Medicine
DX: E11.65 Type 2 diabetes mellitus with hyperglycemia (principal); K21.9 Gastro-esophageal reflux disease without esophagitis; F03.90 Unspecified dementia, unspecified severity, without behavioral disturbance, psychotic disturbance, mood disturbance, and anxiety; E78.00 Pure hypercholesterolemia, unspecified; I10 Essential (primary) hypertension; L23.9 Allergic contact dermatitis, unspecified cause; Z23 Encounter for immunization

== ENCOUNTER → 2024-06-16 14:15 | Outpatient (BNVA) | payer OTHER, SELFPAY | PROVIDERS: PCP Internal Medicine; Visit Provider Internal Medicine | DX: Z23 Encounter for immunization (principal); E11.65 Type 2 diabetes mellitus with hyperglycemia; E78.00 Pure hypercholesterolemia, unspecified; K21.9 Gastro-esophageal reflux disease without esophagitis; I10 Essential (primary) hypertension; L23.9 Allergic contact dermatitis, unspecified cause | CPT/HCPCS: 83036; 90471; 90656; 99212 ==

== ENCOUNTER 2024-08-14 07:23 | Outpatient (REF) | payer OTHER, SELFPAY ==
[2024-08-14 07:49] LABS: MANUAL DIFF FLAG NO
[2024-08-14 08:02] LABS: Basophils Percent Auto 0.4 % (0-2); Eosinophils Absolute Auto 0.5 X10*3/uL (0.0-0.4); Eosinophils Percent Auto 7.1 % (0-4); Hematocrit 41.1 % (37.0-47.0); Hemoglobin 13.4 g/dl (12.0-16.0); Imm Gran Abs Auto 0.02 X10*3/uL (0.00-0.03); Imm Gran Pct Auto 0.3 % (0.0-0.4); Lymphocytes Absolute Auto 2.5 X10*3/uL (1.2-4.9); Lymphocytes Percent Auto 35.3 % (20-40); Mean Corpuscular HGB Conc 32.6 g/dl (31.0-35.0); Mean Corpuscular Hemoglobin 30.2 pg (27.0-33.0); Mean Corpuscular Volume 92.8 fL (80.0-98.0); Mean Platelet Volume 10.4 fL (9.4-12.3); Monocytes Absolute Auto 0.5 X10*3/uL (0.1-1.2); Monocytes Percent Auto 7.5 % (2-11); Neutrophils Absolute Auto 3.4 x10*3/uL (2.0-8.3); Neutrophils Percent Auto 49.4 % (45-73); Platelet Count 177 X10*3/uL (160-400); Red Blood Count 4.43 X10*6/uL (4.20-5.50); Red Cell Distribution Width 15.5 % (11.0-16.0); White Blood Count 6.9 X10*3/uL (4.8-10.8)
[2024-08-14 08:08] LABS: Estimated Average Glucose 154 mg/dL
[2024-08-14 08:28] LABS: Alanine Aminotransferase 21 U/L (0-31); Albumin Level 3.5 g/dL (3.5-5.0); Alkaline Phosphatase 70 U/L (39-117); Anion Gap 9 (12-20); Aspartate Amino Transferase 22 U/L (5-31); Bilirubin Total 0.5 mg/dL (0.0-1.0); Blood Urea Nitrogen 12 mg/dL (9-16); Calcium 9.2 mg/dL (8.4-10.2); Carbon Dioxide 28 mmol/L (22-29); Chloride 112 mmol/L (96-108); Cholesterol 102 mg/dL (<200); Estimated Glomerular Filt Rate > 60; Glucose Random 113 mg/dL (60-115); HDL Cholesterol 40 mg/dL (>40); LDL Cholesterol Calculated 48 mg/dL (<100); Sodium 145 mmol/L (135-145); Total Protein 8.1 g/dL (6.5-8.0); Triglycerides 70 mg/dL (<150)
[2024-08-14 08:49] LABS: Free T4 (Free Thyroxine) 1.04 ng/dL (0.71-1.85); Thyroid Stimulating Hormone 0.59 uIU/mL (0.32-4.0); Vitamin D 25-OH Total 35.8 ng/mL (>30)
[2024-08-14 08:56] LABS: Folate 11.7 ng/mL (> or = 4.0); Vitamin B12 683 pg/mL (200-900)
[2024-08-14 09:38] LABS: Creatinine Urine 90.66 mg/dL; Microalbum/Creatinine Ratio Ur 15.4 ug/mg cr (<30)
== END 2024-08-14 07:24 | disposition home or self-care (01) ==
LOC: HO.LAB 07:23
PROVIDERS: PCP Internal Medicine; Visit Provider Internal Medicine
DX: E11.65 Type 2 diabetes mellitus with hyperglycemia (principal); E78.00 Pure hypercholesterolemia, unspecified
CPT/HCPCS: 36415; 80053; 80061; 82043; 82306; 82570; 82607; 82746; 83036; 84439; 84443; 85025

== ENCOUNTER 2024-09-19 13:21 | Outpatient (AMB) | payer OTHER, SELFPAY ==
--- NOTE | 2024-09-19 13:23 | A.OFFPC_ITS ---
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 Required: No Accompanied by: Self / Same As Patient Allergies No Known Allergies [No Known Allergies*] Allergy (Verified 09/19/24 13:24) Tobacco use date assessed: 09/19/24 Fall risk assessment: No Falls in past year Last assessed Fall Risk: 09/19/24 Dental Screening Dental Screen Date: 09/19/24 Did you have a dental visit in the last 12 months?: No Did you have a dental problem in the last 6 months where you did not have access to dental care?: No Was dental information given to patient?: No [facility] Medical History Anemia Closed fracture of left hip Dementia Fall Fracture of femoral neck, left Gait instability GERD (gastroesophageal reflux disease) History of paroxysmal supraventricular tachycardia HTN (hypertension) Hypercholesterolemia Migraine Peripheral vascular disease PVC (premature ventricular contraction) Sinus tachycardia Subclinical hyperthyroidism SVT (supraventricular tachycardia) Transaminitis Vitamin D deficiency Surgical History History of left hip replacement Hx of colonoscopy History of cholecystectomy Family History Father No problems noted. Mother No problems noted. Social History Household Members: Family Household Members Other:: lives with adult children Housing: House Unable to assess alcohol history related to: Unknown Alcohol intake: never Patient Tobacco Use Status: Never used Tobacco e-Cigarette/Vaping Use: Never Used Second Hand Smoke Exposure: No Advance Directives Date on File: 05/15/21 service: No Current occupational status: unemployed and disabled Cognitive needs: Yes (wheel chair/cane) Hearing needs: Yes (hearing aide) Vision needs: Yes (glasses) Questionnaire PHQ-9 Over the last 2 weeks, how often have you been bothered by any of the following problems? 1. Little interest or pleasure in doing things: not at all 2. Feeling down, depressed, or hopeless: not at all 3. Trouble falling or staying asleep, or sleeping too much: not at all 4. Feeling tired or having little energy: not at all 5. Poor appetite or overeating: not at all 6. Feeling bad about yourself - or that you are a failure or have let yourself o r your family down: not at all 7. Trouble concentrating on things, such as reading the newspaper or watching television: not at all 8. Moving or speaking so slowly that other people could have noticed. Or the opposite - being so fidgety or restless that you have been moving around a lot more than usual: not at all 9. Thoughts that you would be better off or of hurting yourself in some way: not at all Total score: 0 Depression Screening Interpretation: Negative Depression Screening Done: Yes Source: Developed by Drs. Eduardo Cortez, Aggie Baig, Wood Foote and colleagues, with an educational carine from [employer]. Thrive Questionnaire Date Thrive assessed: 09/19/24 I am a: Patient What is your living situation today?: I have a steady place to live Within the past 12 months, did the food you bought not last and you didn't have the money to get more?: Never true Within the past 12 months, did you worry whether your food would run out before you got money to buy more?: Never true Do you have trouble paying for medicines?: No Do you have trouble getting transportation to medical appointments?: No Do you have trouble paying your heating and electricity bill?: No Do you have trouble taking care of your child, family member or friend?: No Do you have trouble with day-to-day activities such as bathing, preparing meals, shopping, managing finances, etc.?: No Are you currently unemployed and looking for a job?: Yes Are you interested in more education?: No Please select the resources that you would like help with: None Currently or been in a relationship where the following occur: No concerns reported THRIVE Score: 0 AUDIT C Alcohol Use Questionnaire (AUDIT-C) 1. How often do you have a drink containing alcohol?: Never 2. How many drinks containing alcohol do you have on a typical day when you are drinking?: 1 or 2 3. How often do you have six or more drinks on one occasion?: Never Total Score: 0 SUZIE-7 AMB Questionnaire SUZIE-7 Date SUZIE - 7 assessed: 09/19/24 Feeling nervous, anxious, or on edge: 0 = Not at all Not being able to stop or control worryin = Not at all Worrying too much about different things: 0 = Not at all Trouble relaxin = Not at all Being so restless that it is hard to sit still: 0 = Not at all Becoming easily annoyed or irritable: 0 = Not at all Feeling afraid as if something awful might happen: 0 = Not at all Total SUZIE-7 score (0-4 normal; 5-9 mild; 10-14 moderate; 15-21 severe): 0 Source: Developed by Drs. Eduardo Cortez, Aggie Baig, Wood Foote and colleagues, with an educational carine from [employer]. Physical exam (Primary Care) Vital Signs: Last Vital Signs Pulse 69 09/19/24 13:24 BP 118/62 09/19/24 13:24 Pulse Ox 97 09/19/24 13:24 Oxygen Delivery Method Room Air 09/19/24 13:24 BMI result Body Mass Index 22.9 Tobacco/Smoking Status: Tobacco use Status Tobacco use date assessed 09/19/24 09/19/24 13:34 Patient Tobacco Use Status Never used Tobacco 09/19/24 13:34 e-Cigarette/Vaping Use Never Used 09/19/24 13:34 PHQ-9: PHQ-9 Score PHQ-9: Total score 0 09/19/24 13:34 Depression Screening Interpretation: Negative Thrive Assessment: Date of Thrive Assessment Date Thrive assessed 09/19/24 09/19/24 13:34 Currently or been in a relationship where the following occur: No concerns reported Const General: alert; No acute distress Eyes Conjunctivae: conjunctivae normal Resp Auscultation: clear to auscultation bilaterally Cardio Rate: regular rate Rhythm: regular rhythm GI Inspection: Yes normal to inspection Extrem General: Yes normal to inspection and No edema Coding Level of Care Code Est Pt Level 4 (89837) Complex EM visit Add On G2211 Diagnoses Type 2 diabetes mellitus with hyperglycemia E11.65 Hypercholesterolemia E78.00 Essential hypertension I10 Hypertension type: essential hypertension GERD (gastroesophageal reflux disease) K21.9 Late onset Alzheimer's dementia without behavioral disturbance F03.90 Urinary incontinence R32 Assessment & Plan Assessment & Plan (1) Type 2 diabetes mellitus with hyperglycemia: Code(s): E11.65 - Type 2 diabetes mellitus with hyperglycemia Category: Medical Plan: Decrease the amount of carbohydrate intake, pasta, bread, rice and potatoes are all sugar and that is aside from all the sweet stuff, remember that fruits are good but they are Sweet also. Hemoglobin A1c goal of less than 7.0 patient on Jardiance 10 mg once a day Lantus insulin 17 units once a day Tradjenta at 5 mg once a day (2) Hypercholesterolemia: Code(s): E78.00 - Pure hypercholesterolemia, unspecified Category: Medical Plan: Avoid fried foods, chicken skin, eggs, butter margarine, pastries and meat. Be it pork or beef they have a lot of cholesterol LDL goal of less than 100 and triglyceride of less than 150 on atorvastatin 80 mg once a day (3) HTN (hypertension): Code(s): I10 - Essential (primary) hypertension Category: Medical Qualifiers: Hypertension type: essential hypertension Qualified Code(s): I10 - Essential (primary) hypertension Plan: Continue with blood pressure medication. Decrease salt intake and exercise on metoprolol 75 mg twice a day (4) GERD (gastroesophageal reflux disease): Code(s): K21.9 - Gastro-esophageal reflux disease without esophagitis Category: Medical Plan: Avoid the foods that causes that usually spicy foods, tomato products, juices, coffee, soda and foods that your sensitive to. After eating do not lie down, allow 3-4 hours before in lie down. And keep the head of bed above 30 degrees to avoid the acid from going up. (5) Dementia: Code(s): F03.90 - Unspecified dementia, unspecified severity, without behavioral disturbance, psychotic disturbance, mood disturbance, and anxiety Category: Medical Plan: Conservative treatment supportive treatment (6) Urinary incontinence: Code(s): R32 - Unspecified urinary incontinence Category: Medical Plan History of Present Illness The patient is an 89-year-old female presenting for follow-up regarding her chronic conditions, specifically diabetes mellitus, hypercholesterolemia, and hyperthyroidism. The patient has a notable medical history that includes osteopenia, particularly concerning the left hip, which has previously resulted in a fracture requiring hemiarthroplasty. Diabetes management includes monitoring of hemoglobin A1c levels, which improved from 7.3 in June 2024 to 7.0 in August 2024. The patient's current treatment regimen includes Jardiance 10 mg daily, Lantus insulin 17 units daily, and Tradjenta 5 mg daily, with a goal to maintain hemoglobin A1c below 7.0. For hypercholesterolemia, the patient's LDL has successfully been reduced to 48, with atorvastatin 80 mg daily as part of the treatment plan. The goal remains to keep LDL below 100 and triglycerides below 150. The patient also has known issues with gastroesophageal reflux, for which conservative and supportive treatment measures are in place. She reports no current anemia, has high-normal sodium levels, and normal kidney, liver, vitamin B12, vitamin D, folic acid, and thyroid function. Additional history includes scoliosis, monitored in association with reported back pain, which has been managed with medication and patches. The patient maintains independence but experiences episodes of urinary incontinence, requiring medium-size adult diapers. Current mobility is somewhat limited, leading to fatigue with small movements. Health Maintenance - Vaccinations are up to date, including shingles, tetanus, and pneumonia shots. - Regular monitoring of hemoglobin A1c levels for diabetes management. - LDL cholesterol levels maintained below 100 with atorvastatin. - Eye exams are up to date. - Normal laboratory screenings, including kidney and liver function, vitamin B12, vitamin D, and folic acid levels. Social History - The patient primarily stays indoors and has limited mobility, walking within the house but experiencing fatigue. - No reports of substance use or smoking. - Nutrition appears adequate, with no specific dietary restrictions noted beyond general management of diagnosed conditions. Review of Systems - Cardiovascular: Denies any chest pain or palpitations. - Musculoskeletal: Reports back pain due to scoliosis. - Gastrointestinal: Reports symptoms of reflux managed conservatively. - Genitourinary: Reports urinary incontinence. - Endocrine: Denies any issues apart from diabetes management. - Psychological: Denies depression, anxiety, or mood changes. Physical Exam Results - Labs: Hemoglobin A1c 7.0, LDL 48, normal B12, vitamin D, folic acid levels. - Kidney and liver function tests are normal. Plan The treatment plan for the patient's conditions remains consistent with current pharmacological interventions including Jardiance, Lantus insulin, Tradjenta for diabetes mellitus, and atorvastatin for hypercholesterolemia. The conservative management of gastroesophageal reflux disease involves continuous supportive interventions. Regular follow-up and monitoring of the patient's chronic conditions, including adjustments to medications based on lab findings or symptom exacerbation, are prioritized. The management strategies aim to maintain stable control over the patient's chronic diseases and reduce the risk of complications. Patient was informed and verbally consented to the use of an ambient scribe for clinic note documentation during this visit. Discussion Notes During the visit, I discussed with the patient the significance of maintaining her current treatment regimen and the goals for her diabetes and cholesterol management. I emphasized the importance of keeping her hemoglobin A1c below 7.0 and her LDL cholesterol below 100. The patient understands the rationale behind the prescribed medications, including Jardiance, Lantus insulin, Tradjenta, and atorvastatin, and is agreeable to continue these treatments. We reviewed the conservative treatment plan for her gastroesophageal reflux and emphasized the necessity of adult diapers for her urinary incontinence. The importance of the patient's vaccinations, which are up-to-date, and routine follow-up visits were also part of our discussion. I offered reassurance regarding her laboratory test results, indicating stable management of her chronic conditions. Patient Instructions - Continue taking Jardiance, Lantus insulin, and Tradjenta as prescribed. - Maintain current dosage of atorvastatin 80 mg daily. - Use medium adult diapers as needed for urinary incontinence. - Adhere to the conservative treatment plan for reflux. - Continue routine monitoring and follow-ups for diabetes management. - Contact the office if experiencing worsening symptoms or new concerns. Medications: New [ADULT [employer] MEDIUM] As directed 240 ea 12RF R32 - Unspecified urinary incontinence
[2024-09-19 13:24] VITALS: BP 118/62; PULSE 69; O2SAT 97; BMI 22.9
== END 2024-09-19 14:21 | disposition home or self-care (01) ==
LOC: HO.HMCH 13:21
PROVIDERS: PCP Internal Medicine; Visit Provider Internal Medicine
DX: E11.65 Type 2 diabetes mellitus with hyperglycemia (principal); F03.90 Unspecified dementia, unspecified severity, without behavioral disturbance, psychotic disturbance, mood disturbance, and anxiety; E78.00 Pure hypercholesterolemia, unspecified; I10 Essential (primary) hypertension; K21.9 Gastro-esophageal reflux disease without esophagitis; R32 Unspecified urinary incontinence

== ENCOUNTER → 2024-09-19 13:21 | Outpatient (BNVA) | payer OTHER, SELFPAY | PROVIDERS: PCP Internal Medicine; Visit Provider Internal Medicine | DX: E11.65 Type 2 diabetes mellitus with hyperglycemia (principal); E78.00 Pure hypercholesterolemia, unspecified; I10 Essential (primary) hypertension; K21.9 Gastro-esophageal reflux disease without esophagitis; F03.90 Unspecified dementia, unspecified severity, without behavioral disturbance, psychotic disturbance, mood disturbance, and anxiety; R32 Unspecified urinary incontinence; E05.90 Thyrotoxicosis, unspecified without thyrotoxic crisis or storm; M85.88 Other specified disorders of bone density and structure, other site; Z79.4 Long term (current) use of insulin; Z79.899 Other long term (current) drug therapy | CPT/HCPCS: 96127; 99212 ==

== ENCOUNTER 2025-01-01 14:07 | Outpatient (AMB) | payer OTHER, SELFPAY ==
[2025-01-01 14:09] VITALS: BP 132/58; PULSE 69; RESP 18; TEMP 36.3; O2SAT 98; BMI 22.9
--- NOTE | 2025-01-01 14:09 | MHC.PC.OV ---
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 Director Required: No Accompanied by: daughter in law Allergies No Known Allergies (No Known Allergies*) Allergy (Verified 01/01/25 14:10) Tobacco use date assessed: 01/01/25 Fall risk assessment: No Falls in past year Last assessed Fall Risk: 01/01/25 Dental Screening Dental Screen Date: 01/01/25 Did you have a dental visit in the last 12 months?: No Did you have a dental problem in the last 6 months where you did not have access to dental care?: No Was dental information given to patient?: No PFSH Medical History Anemia PVC (premature ventricular contraction) Sinus tachycardia SVT (supraventricular tachycardia) Fracture of femoral neck, left Closed fracture of left hip Fall Peripheral vascular disease Transaminitis Subclinical hyperthyroidism HTN (hypertension) GERD (gastroesophageal reflux disease) Hypercholesterolemia History of paroxysmal supraventricular tachycardia Vitamin D deficiency Migraine Gait instability Dementia Surgical History History of left hip replacement Hx of colonoscopy History of cholecystectomy Family History Father No problems noted. Mother No problems noted. Social History Household Members: Family Household Members Other:: lives with adult children Housing: House Unable to assess alcohol history related to: Unknown Alcohol intake: never Patient Tobacco Use Status: Never used Tobacco e-Cigarette/Vaping Use: Never Used Second Hand Smoke Exposure: No Advance Directives Date on File: 05/15/21 service: No Current occupational status: unemployed and disabled Cognitive needs: Yes (wheel chair/cane) Hearing needs: Yes (hearing aide) Vision needs: Yes (glasses) Questionnaire PHQ-9 Over the last 2 weeks, how often have you been bothered by any of the following problems? 1. Little interest or pleasure in doing things: not at all 2. Feeling down, depressed, or hopeless: not at all 3. Trouble falling or staying asleep, or sleeping too much: not at all 4. Feeling tired or having little energy: not at all 5. Poor appetite or overeating: not at all 6. Feeling bad about yourself - or that you are a failure or have let yourself or your family down: not at all 7. Trouble concentrating on things, such as reading the newspaper or watching television: not at all 8. Moving or speaking so slowly that other people could have noticed. Or the opposite - being so fidgety or restless that you have been moving around a lot more than usual: not at all 9. Thoughts that you would be better off or of hurting yourself in some way: not at all Total score: 0 Depression Screening Interpretation: Negative Depression Screening Done: Yes Source: Developed by Drs. Eduardo Cortez, Aggie Baig, Wood Foote and colleagues, with an educational carine from [employer]. Thrive Questionnaire Date Thrive assessed: 01/01/25 I am a: Patient What is your living situation today?: I have a steady place to live Within the past 12 months, did the food you bought not last and you didn't have the money to get more?: Never true Within the past 12 months, did you worry whether your food would run out before you got money to buy more?: Never true Do you have trouble paying for medicines?: No Do you have trouble getting transportation to medical appointments?: No Do you have trouble paying your heating and electricity bill?: No Do you have trouble taking care of your child, family member or friend?: No Do you have trouble with day-to-day activities such as bathing, preparing meals, shopping, managing finances, etc.?: No Are you currently unemployed and looking for a job?: Yes Are you interested in more education?: No Please select the resources that you would like help with: None Currently or been in a relationship where the following occur: No concerns reported THRIVE Score: 0 AUDIT C Alcohol Use Questionnaire (AUDIT-C) 1. How often do you have a drink containing alcohol?: Never 3. How often do you have six or more drinks on one occasion?: Never Total Score: 0 SUZIE-7 AMB Questionnaire SUZIE-7 Date SUZIE - 7 assessed: 01/01/25 Feeling nervous, anxious, or on edge: 0 = Not at all Not being able to stop or control worryin = Not at all Worrying too much about different things: 0 = Not at all Trouble relaxin = Not at all Being so restless that it is hard to sit still: 0 = Not at all Becoming easily annoyed or irritable: 0 = Not at all Feeling afraid as if something awful might happen: 0 = Not at all Total SUZIE-7 score (0-4 normal; 5-9 mild; 10-14 moderate; 15-21 severe): 0 Source: Developed by Drs. Eduardo Cortez, Aggie Baig, Wood Foote and colleagues, with an educational carine from [employer]. Physical exam (Primary Care) Vital Signs: Last Vital Signs Temp 97.3 F 01/01/25 14:09 Pulse 69 01/01/25 14:09 Resp 18 01/01/25 14:09 BP 132/58 L 01/01/25 14:09 Pulse Ox 98 01/01/25 14:09 Oxygen Delivery Method Room Air 01/01/25 14:09 BMI result Body Mass Index 22.9 Tobacco/Smoking Status: Tobacco use Status Tobacco use date assessed 01/01/25 01/01/25 14:22 Patient Tobacco Use Status Never used Tobacco 01/01/25 14:22 e-Cigarette/Vaping Use Never Used 01/01/25 14:22 PHQ-9: PHQ-9 Score PHQ-9: Total score 0 01/01/25 14:45 Depression Screening Interpretation: Negative Thrive Assessment: Date of Thrive Assessment Date Thrive assessed 01/01/25 01/01/25 14:22 Currently or been in a relationship where the following occur: No concerns reported Const General: alert; No acute distress Eyes Conjunctivae: conjunctivae normal Resp Auscultation: clear to auscultation bilaterally Cardio Rate: regular rate Rhythm: regular rhythm GI Inspection: Yes normal to inspection Extrem General: Yes normal to inspection and No edema Results AMB Hemoglobin A1c AMB Hemoglobin A1c 6.8 % Last Edit by Tri Kirk CMA on 01/01/25 14:23 Results Reviewed Results Reviewed: Laboratory Last Values Hgb A1c (Clinic) 6.8 % (4.0-6.0) H 01/01/25 14:23 Coding Level of Care Code Est Pt Level 4 (35184) Complex EM visit Add On G2211 Diagnoses Type 2 diabetes mellitus with hyperglycemia E11.65 Essential hypertension I10 Hypertension type: essential hypertension Hypercholesterolemia E78.00 GERD (gastroesophageal reflux disease) K21.9 Late onset Alzheimer's dementia without behavioral disturbance F03.90 Assessment & Plan Assessment & Plan (1) Type 2 diabetes mellitus with hyperglycemia: Code(s): E11.65 - Type 2 diabetes mellitus with hyperglycemia Category: Medical Plan: Decrease the amount of carbohydrate intake, pasta, bread, rice and potatoes are all sugar and that is aside from all the sweet stuff, remember that fruits are good but they are Sweet also. Hemoglobin A1c goal of less than 7.0 patient is on Jardiance 10 mg once a day glargine 17 units once a day Tradjenta 5 mg once a day (2) HTN (hypertension): Code(s): I10 - Essential (primary) hypertension Category: Medical Qualifiers: Hypertension type: essential hypertension Qualified Code(s): I10 - Essential (primary) hypertension Plan: Continue with blood pressure medication. Decrease salt intake and exercise patient takes metoprolol at 75 mg twice a day (3) Hypercholesterolemia: Code(s): E78.00 - Pure hypercholesterolemia, unspecified Category: Medical Plan: Avoid fried foods, chicken skin, eggs, butter margarine, pastries and meat. Be it pork or beef they have a lot of cholesterol on atorvastatin 80 mg once a day (4) GERD (gastroesophageal reflux disease): Code(s): K21.9 - Gastro-esophageal reflux disease without esophagitis Category: Medical Plan: Avoid the foods that causes that usually spicy foods, tomato products, juices, coffee, soda and foods that your sensitive to. After eating do not lie down, allow 3-4 hours before in lie down. And keep the head of bed above 30 degrees to avoid the acid from going up. (5) Dementia: Code(s): F03.90 - Unspecified dementia, unspecified severity, without behavioral disturbance, psychotic disturbance, mood disturbance, and anxiety Category: Medical Plan: Supportive treatment Plan History of Present Illness The patient is an 89-year-old female presenting for a follow-up visit. She has a history of subclinical hyperthyroidism, hypertension, gastroesophageal reflux disease (GERD), hypercholesterolemia, diabetes mellitus, and supraventricular tachycardia (SVT). Her last blood work was conducted on August 14, 2024, showing normal blood count, electrolytes, and renal function. Blood sugar was recorded at 113 mg/dL with a hemoglobin A1c of 6.8%. Liver function tests were normal, and LDL cholesterol was 48 mg/dL. The patient is currently on Jardiance 10 mg once daily, glargine 17 units once daily, and Tradjenta 5 mg once daily for diabetes management. Her blood pressure is managed with metoprolol 75 mg once daily. For hypercholesterolemia, she takes atorvastatin 80 mg once daily. GERD is managed with supportive treatment. Health Maintenance Social History - Functional status: Patient is active at home, engaging in activities such as organizing and walking around the house. Review of Systems Physical Exam Results - Labs: Normal blood count, electrolytes, and renal function as of August 14, 2024. - Labs: Blood sugar 113 mg/dL, hemoglobin A1c 6.8%, normal liver function, LDL cholesterol 48 mg/dL. Plan The patient's diabetes management includes maintaining a hemoglobin A1c goal of less than 7.0%, with current medications including Jardiance, glargine, and Tradjenta. Blood pressure management involves metoprolol, and cholesterol levels are controlled with atorvastatin. Supportive treatment is provided for GERD. The patient is advised to continue current medications and follow up in six months for a complete physical examination. Patient was informed and verbally consented to the use of an ambient scribe for clinic note documentation during this visit. Discussion Notes Patient Instructions - Continue taking all prescribed medications as directed. - Schedule a follow-up appointment in six months for a complete physical examination. Orders: Orders AMB Hemoglobin A1c Today Z13.9 - Encounter for screening, unspecified
== END 2025-01-01 14:50 | disposition home or self-care (01) ==
LOC: HO.HMCH 14:07
PROVIDERS: PCP Internal Medicine; Visit Provider Internal Medicine
DX: E11.65 Type 2 diabetes mellitus with hyperglycemia (principal); I10 Essential (primary) hypertension; E78.00 Pure hypercholesterolemia, unspecified; K21.9 Gastro-esophageal reflux disease without esophagitis; F03.90 Unspecified dementia, unspecified severity, without behavioral disturbance, psychotic disturbance, mood disturbance, and anxiety; Z13.9 Encounter for screening, unspecified

== ENCOUNTER → 2025-01-01 14:07 | Outpatient (BNVA) | payer OTHER, SELFPAY | PROVIDERS: PCP Internal Medicine; Visit Provider Internal Medicine | DX: E11.65 Type 2 diabetes mellitus with hyperglycemia (principal); I10 Essential (primary) hypertension; E78.00 Pure hypercholesterolemia, unspecified; K21.9 Gastro-esophageal reflux disease without esophagitis; F03.90 Unspecified dementia, unspecified severity, without behavioral disturbance, psychotic disturbance, mood disturbance, and anxiety | CPT/HCPCS: 83036; 96127; 99212 ==

== ENCOUNTER 2025-01-25 21:29 | Emergency (ER) | payer OTHER, SELFPAY ==
[2025-01-25 21:46] VITALS: BP 145/55; PULSE 67; RESP 16; TEMP 36.7; O2SAT 93; BMI 22.4
[2025-01-25 22:20] VITALS: BP 115/47; PULSE 62; RESP 18; O2SAT 94
--- NOTE | 2025-01-25 23:00 | ED_ITS ---
HPI - Headache General Chief Complaint: Headache Stated Complaint: migraine Time Seen by Provider: 01/25/25 22:03 Source: patient Mode of arrival: ambulatory Limitations: no limitations History of Present Illness ED Provider: Dr. Carolina Pacheco HPI Narrative: Patient comes to the emergency room complaining of a headache. According to the patient and her family, patient does have history of migraines. Patient recently moved from [place]. Patient states that she tried taking Tylenol without any relief. Patient does not have any specific medications for migraines. Patient complaining of photophobia and nausea. Headache is mostly in both sides of the head. Patient denies any fall, no trauma, denies being on any blood thinners. Related Data Previous Rx's ?Medication ?Instructions ?Recorded miscellaneous medical supply #1 ea 03/22/20 blood-glucose meter (FreeStyle #1 ea 01/19/23 Lite Meter kit) Adult pull ups #1 ea 02/25/23 blood sugar diagnostic (FreeStyle #100 ea 06/29/23 Lite Strips) gabapentin 800 mg tablet 800 mg PO BID 90 days #180 t abs 05/08/24 lancets 28 gauge (FreeStyle #100 ea 05/15/24 Lancets) cholecalciferol (vitamin D3) 50 50 mcg PO DAILY #30 ca ps 08/02/24 mcg (2,000 unit) capsule (Vitamin D3) ADULT PULLUPS MEDIUM #240 ea 09/19/24 lidocaine 5 % topical patch 1 patch topical DAILY #30 ea 09/25/24 linagliptin 5 mg tablet (Tradjenta) 5 mg PO DAILY #90 tabs 09/25/24 atorvastatin 80 mg tablet 80 mg PO DAILY #90 tabs 10/05 10/29 empagliflozin 10 mg tablet 10 mg PO DAILY #30 tabs (Jardiance) metoprolol succinate 25 mg 75 mg PO BID@0830,2029 #180 tabs 10/19/24 tablet,extended release 24 hr omeprazole 20 mg capsule,delayed 20 mg PO DAILY #90 ca ps 10/19/24 release quetiapine 25 mg tablet (Seroquel) 25 mg PO BEDTIME #3 0 tabs 10/19/24 acetaminophen 325 mg tablet 325 - 650 mg (1 - 2 x 325 mg) PO 12/09/24 Q4-6H PRN fever or pain #30 tabs pen needle, diabetic 32 gauge x #100 ea 12/18/24 diclofenac sodium 1 % topical gel 4 g topical QID #100 grams 01/15/25 (Voltaren Arthritis Pain) insulin glargine 100 unit/mL (3 17 unit (0.17 mL) subc ut DAILY 30 01/15/25 mL) subcutaneous pen days #5.1 mL ondansetron 4 mg disintegrating 4 mg PO Q6H PRN nausea and 01/25/25 tablet vomiting #14 tabs sumatriptan succinate 50 mg tablet See Rx Instructions PO .COMPLEX 01/25/25 #10 tabs Allergies Allergy/AdvReac Type Severity Reaction Status Date / Time No Known Allergies (No Known Allergy Verified 01/25/25 21:48 Allergies*) Review of Systems Review of Systems: Constitutional : No Weight loss, No Fever, No Chills, No Night Sweats, No Fatigue, No Malaise ENT/Mouth : No Hearing loss, No Ear Pain, No Nasal Congestion, No Sinus Pain, No Hoarseness, No sore throat, No Rhinorrhea, No Swallowing Difficulty Eyes: No Eye Pain, No Swelling, No Redness, No Foreign Body, No Discharge, No Vision Changes Cardiovascular : No Chest Pain, No SOB, No Dyspnea on Exertion, No Orthopnea, No Edema, No Palpitations Respiratory : No Cough, No Sputum, No Wheezing, No Smoke Exposure, No Dyspnea Gastrointestinal : No Nausea, No Vomiting, No Diarrhea, No Constipation, No abdominal Pain, No Hematochezia, No Melena Genitourinary : no irregular bleeding, No Dysuria, No Urinary Frequency, No Hematuria, No Urinary Incontinence, No Urgency, No Flank Pain, No Urinary Flow Changes, No Hesitancy Musculoskeletal : No joint pain, No Myalgias, No Joint Swelling Skin : No Skin Lesions, No rash Neuro : No Weakness, No Numbness, No Paresthesias, No Loss of Consciousness, No Dizziness, complaining of a migraine Headache Psych : No Anxiety/Panic, No Depression, No SI/HI/AH/VH, No Social Issues, Heme/Lymph: No Bruising, No Bleeding,No Lymphadenopathy Endocrine : No Polyuria, No Polydipsia, No Temperature Intolerance PMFSH Past Medical History Medical History Anemia PVC (premature ventricular contraction) Sinus tachycardia SVT (supraventricular tachycardia) Fracture of femoral neck, left Closed fracture of left hip Fall Peripheral vascular disease Transaminitis Subclinical hyperthyroidism HTN (hypertension) GERD (gastroesophageal reflux disease) Hypercholesterolemia History of paroxysmal supraventricular tachycardia Vitamin D deficiency Migraine Gait instability Dementia Surgical History History of left hip replacement Hx of colonoscopy History of cholecystectomy Family History Family History Father No problems noted. Mother No problems noted. Social History Social History Household Members: Family Household Members Other:: lives with adult children Housing: House Unable to assess alcohol history related to: Unknown Alcohol intake: never Patient Tobacco Use Status: Never used Tobacco e-Cigarette/Vaping Use: Never Used Second Hand Smoke Exposure: No Advance Directives: Yes Advance Directives on File: Yes Advance Directives Date on File: 05/15/21 Do you have a plan to hurt others: No Plan service: No Current occupational status: unemployed and disabled Cognitive needs: Yes (wheel chair/cane) Hearing needs: Yes (hearing aide) Vision needs: Yes (glasses) Physical Exam Exam: Exam: Appearance: Alert. Oriented X3. No acute distress. Eyes: Pupils equal, round and reactive to light. As photophobia ENT: Pharynx normal. Neck: Normal inspection. Neck supple. No lymph nodes noted. No crepitus CVS: Normal heart rate and rhythm. Pulses normal. Normal S1 and S2 Respiratory: No respiratory distress. Breath sounds normal. No Wheezing. No rales Abdomen: Soft and nontender. No rigidity. No distention. Skin: Skin warm and dry. Normal skin color. Normal skin turgor. Extremities: No lower extremity edema. No Lacerations. No Rash Neuro: Oriented X 3. No motor deficit. No sensory deficit. Moving all extremities. No slurred speech. CN 2 through 12 grossly intact Psych: calm, cooperative, normal affect Vital Signs: Vital Signs: Last Vital Signs Temp 98.1 F 01/25/25 21:46 Pulse 62 01/25/25 22:20 Resp 18 01/25/25 22:20 BP 115/47 L 01/25/25 22:20 Pulse Ox 94 01/25/25 22:20 O2 Del Method Room Air 01/25/25 22:20 BMI result Body Mass Index 22.4 Course Course Course Narrative: Patient reports migraine, does have history of migraines, no new symptoms. Pain did not improve with acetaminophen p.o. Patient receiving IV fluids, ketorolac, Reglan, Benadryl Patient had labs done in August of 2024. At this time, repeating labs would be noncontributory Medications Administered Discontinued Medications Generic Name Dose Route Start Last Admin Trade Name Nkechi PRN Reason Stop Dose Admin Diphenhydramine HCl 12.5 mg 01/25/25 22:36 01/25/25 22:54 Diphenhydramine Hcl 50 Mg/Ml Vial IVPUSH 01/25/25 22:37 12.5 mg ONCE ONE Administration Sodium Chloride 1,000 mls @ 999 mls/hr 01/25/25 22:36 01/25/25 22:53 Ns IVCONT 01/25/25 23:36 999 mls/hr .Q1H1M ONE Administration Ketorolac Tromethamine 30 mg 01/25/25 22:36 01/25/25 22:54 Ketorolac Tromethamine 30 Mg/Ml Vial IVPUSH 01/25/25 22:37 30 mg ONCE ONE Administration Metoclopramide HCl 10 mg 01/25/25 22:36 01/25/25 22:55 Metoclopramide Hcl 10 Mg/2 Ml Vial IVPUSH 01/25/25 22:37 10 mg ONCE ONE Administration Medical Decision Making Medical Decision Making MDM Narrative: After the above-mentioned medication, patient feels much better, no longer having photophobia, patient states that she feels well and would like to go home. Patient's family is here to pick her up Patient has no neurological deficits to suspect a mass or intracranial bleed Differential Diagnosis Differential Diagnoses: The differential diagnosis associated with the presentation includes (Tension Headache, migraine headache, less likely intracranial mass or bleed) Admission/Observation Consideration of admission/observation: Escalation of care including admission/observation considered (Given patient's age and symptoms, observation was considered) Critical Care Time Critical Care Time Critical Care Time: Yes Total Critical Care Time: 35 Attestation: Please follow-up with your primary care physician tomorrow. If you have any worsening or new symptoms, please return to the emergency room or call 911 Discharge Plan Discharge Clinical Impression: Headache, migraine Patient Disposition: Home, Self-Care Instructions: Migraine Headache (ED) Additional Instructions: Please follow-up with your primary care physician tomorrow. If you have any worsening or new symptoms, please return to the emergency room or call 911 Prescriptions: New sumatriptan succinate 50 mg tablet See Rx Instructions .ROUTE .COMPLEX Qty: 10 0RF Rx Instructions: take 1 tab at onset of headache; if no relief may repeat 1 tab after at least 2 hrs; max = 4 tabs/24 hr ondansetron 4 mg tablet,disintegrating 4 mg PO Q6H PRN (Reason: nausea and vomiting) Qty: 14 0RF No Action (DME) miscellaneous medical supply Misc See Rx Instructions .ROUTE .MEDSUPPLY Qty: 1 0RF Rx Instructions: As directed (DME) blood-glucose meter [FreeStyle Lite Meter] Kit See Rx Instructions .Route Qty: 1 0RF Rx Instructions: 2 times a day (DME) Adult pull ups medium See Rx Instructions .Route .MEDSUPPLY Qty: 1 0RF Rx Instructions: As directed gabapentin 800 mg tablet 800 mg PO BID 90 Days Qty: 180 8RF (DME) lancets [FreeStyle Lancets] 28 gauge misc See Rx Instructions .ROUTE .MEDSUPPLY Qty: 100 12RF Rx Instructions: Twice times a day cholecalciferol (vitamin D3) [Vitamin D3] 50 mcg (2,000 unit) capsule 50 mcg PO DAILY Qty: 30 6RF Tradjenta 5 mg tablet 5 mg PO DAILY Qty: 90 8RF lidocaine 5 % adhesive patch,medicated 1 patch topical DAILY Qty: 30 4RF Rx Instructions: leave on most painful area for up to 12 hrs omeprazole 20 mg capsule,delayed release(DR/EC) 20 mg PO DAILY Qty: 90 3RF Jardiance 10 mg tablet 10 mg PO DAILY Qty: 30 5RF atorvastatin 80 mg tablet 80 mg PO DAILY Qty: 90 8RF metoprolol succinate 25 mg tablet extended release 24 hr 75 mg PO BID@0830,2030 Qty: 180 2RF Protocol: Hold for SBP/HR < HOLD for SBP < : 90 HOLD for HR < : 60 quetiapine [Seroquel] 25 mg tablet 25 mg PO BEDTIME Qty: 30 5RF acetaminophen 325 mg tablet 325 - 650 mg PO Q4-6H PRN (Reason: fever or pain) Qty: 30 3RF (DME) pen needle, diabetic 32 gauge x 5/32 needle See Rx Instructions .ROUTE .MEDSUPPLY Qty: 100 3RF Rx Instructions: As directed once daily diclofenac sodium [Voltaren Arthritis Pain] 1 % gel 4 g topical QID Qty: 100 6RF Rx Instructions: apply to single knee, ankle, foot; for foot includes sole/toes/top of foot insulin glargine 100 unit/mL (3 mL) insulin pen 17 unit subcut DAILY 30 Days Qty: 5.1 9RF (DME) FreeStyle Lite Strips Strip See Rx Instructions .Route Qty: 100 11RF Rx Instructions: Three thimes a day (DME) ADULT PULLUPS MEDIUM See Rx Instructions .Route .MEDSUPPLY Qty: 240 12RF Rx Instructions: As directed Print Language: Lithuanian
--- NOTE | 2025-01-26 | PC.NURSE ---
medicated per mar, pt assisted on the bed hanks, reviewed discharge instructions with family, pt discharged home with no sign of distress.
[2025-01-26 00:01] VITALS: BP 115/47; PULSE 62; RESP 18; TEMP 37; O2SAT 94
== END 2025-01-26 00:02 | disposition home or self-care (01) ==
PROVIDERS: Emergency Provider Emergency Medicine; PCP Internal Medicine
DX: G43.909 Migraine, unspecified, not intractable, without status migrainosus (principal); R11.0 Nausea; Z79.899 Other long term (current) drug therapy
CPT/HCPCS: 96361; 96374; 96375; 99284; 99285; J1200; J1885; J2765